=== PATIENT | female | born 1980 | race Native Hawaiian/Other Pacific Islander ===

== ENCOUNTER → 2022-06-04 11:09 | Outpatient (BNVA) | payer MEDICARE, MEDICAID, SELFPAY | PROVIDERS: PCP Internal Medicine; Visit Provider Nurse Practitioner Family | DX: G43.909 Migraine, unspecified, not intractable, without status migrainosus (principal); G24.3 Spasmodic torticollis; R29.2 Abnormal reflex; R25.2 Cramp and spasm | CPT/HCPCS: 99212 ==

== ENCOUNTER → 2023-01-07 08:45 | Outpatient (BNVA) | payer MEDICARE, MEDICAID, SELFPAY | PROVIDERS: PCP Internal Medicine; Visit Provider Psychiatry & Neurology Neurology | DX: G24.3 Spasmodic torticollis (principal) | CPT/HCPCS: 64616; 99211; J0585 ==

== ENCOUNTER 2023-04-20 09:34 | Outpatient (AMB) | payer MEDICARE, MEDICAID, SELFPAY ==
[2023-04-20 09:35] VITALS: BP 132/90; PULSE 73; O2SAT 98; BMI 35.1
--- NOTE | 2023-04-20 09:35 | A.OFFVIS_ITS ---
Intake Vital Signs 04/20/23 09:35 Height 4 ft 9.5 in Weight 165 lb BMI 35.1 BP 132/90 H Blood Pressure Location Lt brachial Position Sitting Pulse 73 Pulse Source Pulse Oximeter Pulse Oximetry (%) 98 Oxygen Delivery Method Room Air Intake Visit Reasons: Botox - Confirmed Intake Note: Pt presents for Botox. Accompanied by: Significant Other Allergies minocycline Allergy (Unknown, Verified 04/20/23 09:40) Itching sulfamethoxazole [From Bactrim] Allergy (Unknown, Verified 04/20/23 09:40) Itching timolol Allergy (Unknown, Verified 04/20/23 09:40) Itching trimethoprim [From Bactrim] Allergy (Unknown, Verified 04/20/23 09:40) Itching adalimumab [From Humira] Allergy (Verified 04/20/23 09:40) Itching infliximab [From Remicade] Allergy (Verified 04/20/23 09:40) Itching Medication List - Last Reconciled 04/20/23 by Zoya Guajardo MD cyclobenzaprine 10 mg PO erenumab-aooe (Aimovig Autoinjector) 140 mg subcut ONCE 30 days fluticasone propionate 50 mcg/actuation intranasal hydroxychloroquine mg PO hydroxyzine HCl 25 mg PO magnesium oxide 400 mg PO BEDTIME 30 days naproxen 500 mg PO olopatadine 0.2% 1 drp ophthalmic (eye) onabotulinumtoxinA (Botox) 200 units IM ONCE 12 weeks oxycodone 10 mg PO Q12H PRN riboflavin (vitamin B2) 400 mg PO QAM 30 days sumatriptan succinate 50 - 100 mg orally at onset of headache, may repeat in 2 hrs PRN; max 2 tabs per day or 4 tabs/week (may take with Ibuprofen) 30 days HPI HPI Comments History of Present Illness Details 42y/o female comes for treatment of her cervical dystonia ? Side effects including spread of toxin effect, dysphagia, breathing difficulties , bronchitis etc was discussed in detail and the patient agreed to the procedure.An informed consent was obtained ??? Botulinum toxin type A 200units X 1 -was diluted with 4 cc of normal saline at a concentration of 25 units in 0.5cc saline. Lot number [id number] expiration 10/2025 ??? Muscles injected ??? Eligio Splenius - 50 units each ??? Eligio levator 25 units each Eligio Trapezius 25 units each ? Total used 200 units PFSH Medical History Anemia Arthritis Cataract Congenital rubella Fibromyalgia GERD (gastroesophageal reflux disease) Glaucoma Legally blind Lupus Surgical History H/O breast biopsy History of ankle surgery History of back surgery History of surgery Hx of appendectomy Hx of cholecystectomy Hx of shoulder surgery Family History Father AIDS Legally blind Family/Other Kidney disease Heart disease Mother Diabetes Hypertension Thyroid disease Family/Other Lupus ADHD Bipolar 1 disorder Depression Anxiety Social History (Updated 04/20/23 @ 09:41 by Cheri Ruiz CMA) Household Members: Children Household Members Other:: 2 kids Alcohol intake: never Patient Tobacco Use Status: Never used Tobacco Physical Exam Vital Signs: Last Vital Signs Pulse 73 04/20/23 09:35 BP 132/90 H 04/20/23 09:35 Pulse Ox 98 04/20/23 09:35 Oxygen Delivery Method Room Air 04/20/23 09:35 BMI result Body Mass Index 35.1 Neck Other: dystonia, tightness tenderness in left SCM, splenius, levator, trapezius Mild tenderness in right splenius restricted range of motion Office Procedures Botulinum toxin Injection 05412 - Dystonia Procedure code (CPT) selection complete Office Meds onabotulinumtoxinA Performing Provider: Zoya Guajardo MD Administered by: Zoya Guajardo MD on 04/20/23 10:22 Dose Route Admin Location Lot Number Expiration Date NDC General Administrator 200 unit IM [id number] 10/21/25 5293-8570-37 ALLERGAN/BOTOX Comments: see HPI Assessment & Plan Assessment & Plan (1) Spasmodic torticollis: Code(s): G24.3 - Spasmodic torticollis Plan Patient tolerated the procedure well She will call with any side effects Orders: Orders AMB Botulinum toxin Injection - Patient Supplied Today G24.3 - Spasmodic torticollis Coding Level of Care Code Est Pt Level 1 (32131) Diagnoses Spasmodic torticollis G24.3 CPT Codes Botox Injection - Botox 4: 29246 - Dystonia ([id number])
== END 2023-04-20 10:20 | disposition home or self-care (01) ==
PROVIDERS: PCP Internal Medicine; Visit Provider Psychiatry & Neurology Neurology
DX: G24.3 Spasmodic torticollis (principal)
CPT/HCPCS: 64616

== ENCOUNTER → 2023-04-20 09:34 | Outpatient (BNVA) | payer MEDICARE, MEDICAID, SELFPAY | PROVIDERS: PCP Internal Medicine; Visit Provider Psychiatry & Neurology Neurology | DX: G24.3 Spasmodic torticollis (principal) | CPT/HCPCS: 64616; 99211; J0585 ==

== ENCOUNTER 2023-07-22 09:30 | Outpatient (AMB) | payer MEDICARE, MEDICAID, SELFPAY ==
--- NOTE | 2023-07-22 09:37 | MHC.OFFVIS ---
Intake Vital Signs 07/22/23 09:39 Height 4 ft 9.5 in Weight 168 lb 9 oz BMI 35.8 BP 122/86 Blood Pressure Location Lt brachial Position Sitting Respiration 16 Pulse 66 Pulse Source Pulse Oximeter Pulse Oximetry (%) 97 Oxygen Delivery Method Room Air Intake Visit Reasons: Botox /Confirmed Intake Note: Pt presents to office for Botox injections. Allergies minocycline Allergy (Unknown, Verified 07/22/23 09:38) Itching sulfamethoxazole [From Bactrim] Allergy (Unknown, Verified 07/22/23 09:38) Itching timolol Allergy (Unknown, Verified 07/22/23 09:38) Itching trimethoprim [From Bactrim] Allergy (Unknown, Verified 07/22/23 09:38) Itching adalimumab [From Humira] Allergy (Verified 07/22/23 09:38) Itching infliximab [From Remicade] Allergy (Verified 07/22/23 09:38) Itching Medication List - Last Reconciled 07/22/23 by Zoya Guajardo MD cyclobenzaprine 10 mg PO erenumab-aooe (Aimovig Autoinjector) 140 mg subcut ONCE 30 days fluticasone propionate 50 mcg/actuation intranasal hydroxychloroquine mg PO hydroxyzine HCl 25 mg PO magnesium oxide 400 mg PO BEDTIME 30 days naproxen 500 mg PO olopatadine 0.2% 1 drp ophthalmic (eye) onabotulinumtoxinA (Botox) 200 units IM ONCE 12 weeks oxycodone 10 mg PO Q12H PRN riboflavin (vitamin B2) 400 mg PO QAM 30 days sumatriptan succinate 50 - 100 mg orally at onset of headache, may repeat in 2 hrs PRN; max 2 tabs per day or 4 tabs/week (may take with Ibuprofen) 30 days HPI HPI Comments History of Present Illness Details 43y/o female comes for treatment of her cervical dystonia ? Side effects including spread of toxin effect, dysphagia, breathing difficulties , bronchitis etc was discussed in detail and the patient agreed to the procedure.An informed consent was obtained ??? Botulinum toxin type A 200units X 1 -was diluted with 4 cc of normal saline at a concentration of 25 units in 0.5cc saline. Lot number [id number] expiration 10/2025 ??? Muscles injected ??? Eligio Splenius - 50 units each ??? left levator 50 units each Left semispinalis 25 units each ? Total used 175units Discarded 25 units PFSH Medical History Cataract Glaucoma Anemia Arthritis Fibromyalgia Lupus GERD (gastroesophageal reflux disease) Legally blind Congenital rubella Surgical History Hx of cholecystectomy History of ankle surgery H/O breast biopsy Hx of shoulder surgery History of surgery History of back surgery Hx of appendectomy Family History Father AIDS Legally blind Family/Other Kidney disease Heart disease Mother Diabetes Hypertension Thyroid disease Family/Other Lupus ADHD Bipolar 1 disorder Depression Anxiety Social History Household Members: Children Household Members Other:: 2 kids Alcohol intake: never Patient Tobacco Use Status: Never used Tobacco Physical Exam Vital Signs: Last Vital Signs Pulse 66 07/22/23 09:39 Resp 16 07/22/23 09:39 BP 122/86 07/22/23 09:39 Pulse Ox 97 07/22/23 09:39 Oxygen Delivery Method Room Air 07/22/23 09:39 BMI result Body Mass Index 35.8 Neck Other: dystonia, tightness tenderness in left SCM, splenius, levator, trapezius Mild tenderness in right splenius restricted range of motion Office Procedures Botulinum toxin Injection 68181 - Dystonia Procedure code (CPT) selection complete Office Meds onabotulinumtoxinA 200 unit solution for injection Performing Provider: Zoya Guajardo MD Performing Location: [facility] [place] [facility] Administered by: Zoya Guajardo MD on 07/22/23 10:12 Dose Route Admin Location Dispensed Lot Number Expiration Date [facility] Associate Professor Of Pathology 175 unit IM 200 units [id number] 10/21/25 0578-9571-43 ALLERGAN/BOTOX Comments: see HPI Assessment & Plan Assessment & Plan (1) Spasmodic torticollis: Code(s): G24.3 - Spasmodic torticollis Plan Patient tolerated the procedure well She will call with any side effects Orders: Orders AMB Botulinum toxin Injection - Patient Supplied Today G24.3 - Spasmodic torticollis Coding Level of Care Code Est Pt Level 1 (53428) Diagnoses Spasmodic torticollis G24.3 CPT Codes Botox Injection - Botox 4: 56243 - Dystonia ([id number])
[2023-07-22 09:39] VITALS: BP 122/86; PULSE 66; RESP 16; O2SAT 97; BMI 35.8
== END 2023-07-22 10:06 | disposition home or self-care (01) ==
PROVIDERS: PCP Internal Medicine; Visit Provider Psychiatry & Neurology Neurology
DX: G24.3 Spasmodic torticollis (principal)
CPT/HCPCS: 64616

== ENCOUNTER → 2023-07-22 09:30 | Outpatient (BNVA) | payer MEDICARE, MEDICAID, SELFPAY | PROVIDERS: PCP Internal Medicine; Visit Provider Psychiatry & Neurology Neurology | DX: G24.3 Spasmodic torticollis (principal) | CPT/HCPCS: 64616; 99211; J0585 ==

== ENCOUNTER 2023-11-19 10:29 | Outpatient (AMB) | payer MEDICARE, MEDICAID, SELFPAY ==
--- NOTE | 2023-11-19 10:36 | A.OFFVIS_ITS ---
Intake Vital Signs 11/19/23 10:37 Height 4 ft 9.5 in Weight 168 lb BMI 35.7 BP 110/84 Blood Pressure Location Rt brachial Position Sitting Respiration 17 Pulse 72 Pulse Source Pulse Oximeter Pulse Oximetry (%) 99 Oxygen Delivery Method Room Air Intake Visit Reasons: Botox- Unable to lvm Intake Note: Pt presents to the office for Botox injections. Associate Professor Of Musicology Required: No Allergies minocycline Allergy (Unknown, Verified 07/22/23 09:38) Itching sulfamethoxazole [From Bactrim] Allergy (Unknown, Verified 07/22/23 09:38) Itching timolol Allergy (Unknown, Verified 07/22/23 09:38) Itching trimethoprim [From Bactrim] Allergy (Unknown, Verified 07/22/23 09:38) Itching adalimumab [From Humira] Allergy (Verified 07/22/23 09:38) Itching infliximab [From Remicade] Allergy (Verified 07/22/23 09:38) Itching Medication List - Last Reconciled 11/19/23 by Zoya Guajardo MD cyclobenzaprine 10 mg PO erenumab-aooe (Aimovig Autoinjector) 140 mg subcut ONCE 30 days fluticasone propionate 50 mcg/actuation intranasal hydroxychloroquine mg PO hydroxyzine HCl 25 mg PO magnesium oxide 400 mg PO BEDTIME 30 days naproxen 500 mg PO olopatadine 0.2% 1 drp ophthalmic (eye) onabotulinumtoxinA (Botox) 200 units IM ONCE 12 weeks oxycodone 10 mg PO Q12H PRN riboflavin (vitamin B2) 400 mg PO QAM 30 days sumatriptan succinate 50 - 100 mg orally at onset of headache, may repeat in 2 hrs PRN; max 2 tabs per day or 4 tabs/week (may take with Ibuprofen) 30 days HPI HPI Comments History of Present Illness Details 43y/o female comes for treatment of her cervical dystonia ? Side effects including spread of toxin effect, dysphagia, breathing difficulties , bronchitis etc was discussed in detail and the patient agreed to the procedure.An informed consent was obtained ??? Botulinum toxin type A 200units X 1 -was diluted with 4 cc of normal saline at a concentration of 25 units in 0.5cc saline. Lot number C [id number] expiration 02/2026 ??? Muscles injected ??? Eligio Splenius - 50 units each ??? left levator 50 units each Left semispinalis 25 units each ? Total used 175units Discarded 25 units PFSH Medical History Cataract Glaucoma Anemia Arthritis Fibromyalgia Lupus GERD (gastroesophageal reflux disease) Legally blind Congenital rubella Surgical History History of partial hysterectomy Hx of cholecystectomy History of ankle surgery H/O breast biopsy Hx of shoulder surgery History of surgery History of back surgery Hx of appendectomy Family History Father AIDS Legally blind Family/Other Kidney disease Heart disease Mother Diabetes Hypertension Thyroid disease Family/Other Lupus ADHD Bipolar 1 disorder Depression Anxiety Social History Household Members: Children Household Members Other:: 2 kids Alcohol intake: never Patient Tobacco Use Status: Never used Tobacco Physical Exam Vital Signs: Last Vital Signs Pulse 72 11/19/23 10:37 Resp 17 11/19/23 10:37 BP 110/84 11/19/23 10:37 Pulse Ox 99 11/19/23 10:37 Oxygen Delivery Method Room Air 11/19/23 10:37 BMI result Body Mass Index 35.7 Neck Other: dystonia, tightness tenderness in left SCM, splenius, levator, trapezius Mild tenderness in right splenius restricted range of motion Office Procedures Botulinum toxin Injection 54691 - Dystonia Procedure code (CPT) selection complete Office Meds onabotulinumtoxinA 200 unit solution for injection Performing Provider: Zoya Guajardo MD Performing Location: [facility] [place] [facility] Administered by: Zoya Guajardo MD on 11/19/23 10:59 Dose Route Admin Location Dispensed Lot Number Expiration Date [facility] 3D Designer 175 unit IM 200 units [id number] 02/18/26 [id number] ALLERGAN/BOTOX Comments: see HPI Assessment & Plan Assessment & Plan (1) Spasmodic torticollis: Code(s): G24.3 - Spasmodic torticollis Plan Patient tolerated the procedure well She will call with any side effects Orders: Orders AMB Botulinum toxin Injection Today G24.3 - Spasmodic torticollis Coding Level of Care Code Est Pt Level 1 (93153) Diagnoses Spasmodic torticollis G24.3 CPT Codes Botox Injection - Botox 4: 21872 - Dystonia ([id number])
[2023-11-19 10:37] VITALS: BP 110/84; PULSE 72; RESP 17; O2SAT 99; BMI 35.7
== END 2023-11-19 10:57 | disposition home or self-care (01) ==
PROVIDERS: PCP Internal Medicine; Visit Provider Psychiatry & Neurology Neurology
DX: G24.3 Spasmodic torticollis (principal)
CPT/HCPCS: 64616

== ENCOUNTER → 2023-11-19 10:29 | Outpatient (BNVA) | payer MEDICARE, MEDICAID, SELFPAY | PROVIDERS: PCP Internal Medicine; Visit Provider Psychiatry & Neurology Neurology | DX: G24.3 Spasmodic torticollis (principal) | CPT/HCPCS: 64616; 99211; J0585 ==

== ENCOUNTER 2024-03-01 08:58 | Outpatient (AMB) | payer MEDICARE, MEDICAID, SELFPAY ==
--- NOTE | 2024-03-01 09:05 | A.OFFVIS_ITS ---
Vital Signs 03/01/24 09:06 Height 4 ft 9.5 in Weight 169 lb 4 oz BMI 36.0 BP 132/82 Blood Pressure Location Rt brachial Position Sitting Respiration 16 Pulse 71 Pulse Source Pulse Oximeter Pulse Oximetry (%) 99 Oxygen Delivery Method Room Air Intake Visit Reasons: Botox - Confirmed Intake Note: Pt presents to the office for Botox injections. Cargo Bracer Required: No Allergies minocycline Allergy (Unknown, Verified 03/01/24 09:06) Itching sulfamethoxazole [From Bactrim] Allergy (Unknown, Verified 03/01/24 09:06) Itching timolol Allergy (Unknown, Verified 03/01/24 09:06) Itching trimethoprim [From Bactrim] Allergy (Unknown, Verified 03/01/24 09:06) Itching adalimumab [From Humira] Allergy (Verified 03/01/24 09:06) Itching infliximab [From Remicade] Allergy (Verified 03/01/24 09:06) Itching Medication List - Last Reconciled 03/01/24 by Zoya Guajardo MD cyclobenzaprine 10 mg PO erenumab-aooe (Aimovig Autoinjector) 140 mg subcut ONCE 30 days fluticasone propionate 50 mcg/actuation intranasal hydroxychloroquine mg PO hydroxyzine HCl 25 mg PO magnesium oxide 400 mg PO BEDTIME 30 days naproxen 500 mg PO olopatadine 0.2% 1 drp ophthalmic (eye) onabotulinumtoxinA (Botox) 200 units IM ONCE 12 weeks oxycodone 10 mg PO Q12H PRN riboflavin (vitamin B2) 400 mg PO QAM 30 days sumatriptan succinate 100 mg PO ONCE sumatriptan succinate 50 - 100 mg orally at onset of headache, may repeat in 2 hrs PRN; max 2 tabs per day or 4 tabs/week (may take with Ibuprofen) 30 days HPI Comments Details: 43y/o female comes for treatment of her cervical dystonia ? Side effects including spread of toxin effect, dysphagia, breathing difficulties , bronchitis etc was discussed in detail and the patient agreed to the procedure.An informed consent was obtained ??? Botulinum toxin type A 200units X 1 -was diluted with 4 cc of normal saline at a concentration of 25 units in 0.5cc saline. Lot number C [id number] expiration 02/2026 ??? Muscles injected ??? Eligio Splenius - 50 units each ??? left levator 50 units each Left semispinalis 25 units each left temporalis 25 units ? Total [facility] 200[facility] Medical History Cataract Glaucoma Anemia Arthritis Fibromyalgia Lupus GERD (gastroesophageal reflux disease) Legally blind Congenital rubella Surgical History History of partial hysterectomy Hx of cholecystectomy History of ankle surgery H/O breast biopsy Hx of shoulder surgery History of surgery History of back surgery Hx of appendectomy Family History Father AIDS Legally blind Family/Other Kidney disease Heart disease Mother Diabetes Hypertension Thyroid disease Family/Other Lupus ADHD Bipolar 1 disorder Depression Anxiety Social History Household Members: Children Household Members Other:: 2 kids Alcohol intake: never Patient Tobacco Use Status: Never used Tobacco Physical Exam Vital Signs: Last Vital Signs Pulse 71 03/01/24 09:06 Resp 16 03/01/24 09:06 BP 132/82 03/01/24 09:06 Pulse Ox 99 03/01/24 09:06 Oxygen Delivery Method Room Air 03/01/24 09:06 BMI result Body Mass Index 36.0 Neck Other: dystonia, tightness tenderness in left SCM, splenius, levator, trapezius Mild tenderness in right splenius restricted range of motion Office Procedures Botulinum toxin Injection 03833 - Dystonia Procedure code (CPT) selection complete Office Meds onabotulinumtoxinA 200 unit solution for injection Performing Provider: Zoya Guajardo MD Performing Location[place] [facility] [place] [facility] Administered by: Zoya Guajardo MD on 03/01/24 09:37 Dose Route Admin Location Dispensed Lot Number Expiration Date [facility] Sheet Pile Driver Operator 200 unit IM 200 units [id number] 02/18/26 [id number] ALLERGAN/BOTOX Comments: see HPI Assessment & Plan Assessment & Plan (1) Spasmodic torticollis: Code(s): G24.3 - Spasmodic torticollis Category: Medical Plan Patient tolerated the procedure well She will call with any side effects Orders: Orders 2 AMB Botulinum toxin Injection Today G24.3 - Spasmodic torticollis Medications: New onabotulinumtoxinA 200 units IM ONCE 1 ea 0RF spasmodic torticollis G24.3 - Spasmodic torticollis Coding Level of Care Code Est Pt Level 1 (79944) Diagnoses Spasmodic torticollis G24.3 CPT Codes Botox Injection - Botox 4: 80904 - Dystonia ([id number])
[2024-03-01 09:06] VITALS: BP 132/82; PULSE 71; RESP 16; O2SAT 99; BMI 36.0
== END 2024-03-01 09:23 | disposition home or self-care (01) ==
PROVIDERS: PCP Internal Medicine; Visit Provider Psychiatry & Neurology Neurology
DX: G24.3 Spasmodic torticollis (principal)
CPT/HCPCS: 64616

== ENCOUNTER → 2024-03-01 08:58 | Outpatient (BNVA) | payer MEDICARE, MEDICAID, SELFPAY | PROVIDERS: PCP Internal Medicine; Visit Provider Psychiatry & Neurology Neurology | DX: G24.3 Spasmodic torticollis (principal) | CPT/HCPCS: 64616; 99211; J0585 ==

== ENCOUNTER 2024-06-13 09:19 | Outpatient (AMB) | payer MEDICARE, MEDICAID, SELFPAY ==
--- NOTE | 2024-06-13 09:22 | MHC.OFFVIS ---
Vital Signs 06/13/24 09:23 Height 4 ft 9.5 in Weight 173 lb 2 oz BMI 36.8 BP 138/82 Blood Pressure Location Rt brachial Position Sitting Respiration 16 Pulse 77 Pulse Source Pulse Oximeter Pulse Oximetry (%) 98 Oxygen Delivery Method Room Air Intake Visit Reasons: Botox Intake Note: Pt presents to the office for Botox injections for spasmodic torticollis. Stringed Instrument Tuner Required: No Allergies minocycline Allergy (Unknown, Verified 06/13/24 09:22) Itching sulfamethoxazole [From Bactrim] Allergy (Unknown, Verified 06/13/24 09:22) Itching timolol Allergy (Unknown, Verified 06/13/24 09:22) Itching trimethoprim [From Bactrim] Allergy (Unknown, Verified 06/13/24 09:22) Itching adalimumab [From Humira] Allergy (Verified 06/13/24 09:22) Itching infliximab [From Remicade] Allergy (Verified 06/13/24 09:22) Itching Medication List - Last Reconciled 06/13/24 by Zoya Guajardo MD cyclobenzaprine 10 mg PO erenumab-aooe (Aimovig Autoinjector) 140 mg subcut ONCE 30 days fluticasone propionate 50 mcg/actuation intranasal hydroxychloroquine mg PO hydroxyzine HCl 25 mg PO magnesium oxide 400 mg PO BEDTIME 30 days naproxen 500 mg PO olopatadine 0.2% 1 drp ophthalmic (eye) onabotulinumtoxinA (Botox) 200 units IM ONCE 12 weeks oxycodone 10 mg PO Q12H PRN riboflavin (vitamin B2) 400 mg PO QAM 30 days sumatriptan succinate 100 mg PO ONCE sumatriptan succinate 50 - 100 mg orally at onset of headache, may repeat in 2 hrs PRN; max 2 tabs per day or 4 tabs/week (may take with Ibuprofen) 30 days HPI Comments Details: 43y/o female comes for treatment of her cervical dystonia ? Side effects including spread of toxin effect, dysphagia, breathing difficulties , bronchitis etc was discussed in detail and the patient agreed to the procedure.An informed consent was obtained ??? Botulinum toxin type A 200units X 1 -was diluted with 4 cc of normal saline at a concentration of 25 units in 0.5cc saline. Lot number [id number] expiration 08/2026 ??? Muscles injected ??? Eligio Splenius - 50 units each ??? left levator 50 units each Left semispinalis 25 units each left temporalis 25 units ? Total used 200units [facility] Medical History Cataract Glaucoma Anemia Arthritis Fibromyalgia Lupus GERD (gastroesophageal reflux disease) Legally blind Congenital rubella Surgical History History of partial hysterectomy Hx of cholecystectomy History of ankle surgery H/O breast biopsy Hx of shoulder surgery History of surgery History of back surgery Hx of appendectomy Family History Father AIDS Legally blind Family/Other Kidney disease Heart disease Mother Diabetes Hypertension Thyroid disease Family/Other Lupus ADHD Bipolar 1 disorder Depression Anxiety Social History Household Members: Children Household Members Other:: 2 kids Alcohol intake: never Patient Tobacco Use Status: Never used Tobacco Physical Exam Vital Signs: Last Vital Signs Pulse 77 06/13/24 09:23 Resp 16 06/13/24 09:23 BP 138/82 06/13/24 09:23 Pulse Ox 98 06/13/24 09:23 Oxygen Delivery Method Room Air 06/13/24 09:23 BMI result Body Mass Index 36.8 Neck Other: dystonia, tightness tenderness in left SCM, splenius, levator, trapezius Mild tenderness in right splenius restricted range of motion Office Procedures Botulinum toxin Injection 54877 - Dystonia Procedure code (CPT) selection complete Office Meds onabotulinumtoxinA 200 unit solution for injection Performing Provider: Zoya Guajardo MD Performing Location: [facility] [place] [facility] Administered by: Zoya Guajardo MD on 06/13/24 10:02 Dose Route Admin Location Dispensed Lot Number Expiration Date [facility] Search Manager 200 unit IM 200 units [id number] 08/20/26 7771-3009-57 ALLERGAN/BOTOX Comments: see hpi Assessment & Plan Assessment & Plan (1) Spasmodic torticollis: Code(s): G24.3 - Spasmodic torticollis Category: Medical Plan Patient tolerated the procedure well She will call with any side effects Orders: Orders AMB Botulinum toxin Injection Today G24.3 - Spasmodic torticollis Medications: New onabotulinumtoxinA 200 units IM ONCE 1 ea 0RF dystonia G24.3 - Spasmodic torticollis Coding Level of Care Code Est Pt Level 1 (99446) Diagnoses Spasmodic torticollis G24.3 CPT Codes Botox Injection - Botox 4: 62635 - Dystonia ([id number])
[2024-06-13 09:23] VITALS: BP 138/82; PULSE 77; RESP 16; O2SAT 98; BMI 36.8
== END 2024-06-13 09:59 | disposition home or self-care (01) ==
PROVIDERS: PCP Internal Medicine; Visit Provider Psychiatry & Neurology Neurology
DX: G24.3 Spasmodic torticollis (principal)
CPT/HCPCS: 64616

== ENCOUNTER → 2024-06-13 09:19 | Outpatient (BNVA) | payer MEDICARE, MEDICAID, SELFPAY | PROVIDERS: PCP Internal Medicine; Visit Provider Psychiatry & Neurology Neurology | DX: G24.3 Spasmodic torticollis (principal) | CPT/HCPCS: 64616; 99211; J0585 ==

== ENCOUNTER 2024-09-26 14:12 | Outpatient (AMB) | payer MEDICARE, MEDICAID, SELFPAY ==
[2024-09-26 14:17] VITALS: BP 130/90; PULSE 86; O2SAT 98; BMI 35.7
--- NOTE | 2024-09-26 14:17 | MHC.OFFVIS ---
Vital Signs 09/26/24 14:17 Height 4 ft 9.5 in Weight 168 lb BMI 35.7 BP 130/90 H Blood Pressure Location Rt brachial Position Sitting Pulse 86 Pulse Source Pulse Oximeter Pulse Oximetry (%) 98 Oxygen Delivery Method Room Air Intake Visit Reasons: Botox Intake Note: Patient had cortisone shot on her back and hip. Business Transformation Manager Required: No Accompanied by: Self / Same As Patient Allergies minocycline Allergy (Unknown, Verified 09/26/24 14:21) Itching sulfamethoxazole [From Bactrim] Allergy (Unknown, Verified 09/26/24 14:21) Itching timolol Allergy (Unknown, Verified 09/26/24 14:21) Itching trimethoprim [From Bactrim] Allergy (Unknown, Verified 09/26/24 14:21) Itching adalimumab [From Humira] Allergy (Verified 09/26/24 14:21) Itching infliximab [From Remicade] Allergy (Verified 09/26/24 14:21) Itching Medication List - Last Reconciled 09/26/24 by Zoya Guajardo MD cyclobenzaprine 10 mg PO erenumab-aooe (Aimovig Autoinjector) 140 mg subcut ONCE 30 days fluticasone propionate 50 mcg/actuation intranasal hydroxychloroquine mg PO hydroxyzine HCl 25 mg PO magnesium oxide 400 mg PO BEDTIME 30 days naproxen 500 mg PO olopatadine 0.2% 1 drp ophthalmic (eye) onabotulinumtoxinA (Botox) 200 units IM ONCE 12 weeks oxycodone 10 mg PO Q12H PRN riboflavin (vitamin B2) 400 mg PO QAM 30 days sumatriptan succinate 100 mg PO ONCE sumatriptan succinate 50 - 100 mg orally at onset of headache, may repeat in 2 hrs PRN; max 2 tabs per day or 4 tabs/week (may take with Ibuprofen) 30 days Do you need a note to return to daycare/school/sports/work: No HPI Comments Details: 44y/o female comes for treatment of her cervical dystonia ? Side effects including spread of toxin effect, dysphagia, breathing difficulties , bronchitis etc was discussed in detail and the patient agreed to the procedure.An informed consent was obtained ??? Botulinum toxin type A 200units X 1 -was diluted with 4 cc of normal saline at a concentration of 25 units in 0.5cc saline. Lot number [id number] expiration 05/2026 ??? Muscles injected ??? Eligio Splenius - 50 units each ??? left levator 50 units each Left semispinalis 25 units each left temporalis 25 units ? Total used 200units [facility] Medical History Cataract Glaucoma Anemia Arthritis Fibromyalgia Lupus GERD (gastroesophageal reflux disease) Legally blind Congenital rubella Surgical History History of partial hysterectomy Hx of cholecystectomy History of ankle surgery H/O breast biopsy Hx of shoulder surgery History of surgery History of back surgery Hx of appendectomy Family History Father AIDS Legally blind Family/Other Kidney disease Heart disease Mother Diabetes Hypertension Thyroid disease Family/Other Lupus ADHD Bipolar 1 disorder Depression Anxiety Social History Household Members: Children Household Members Other:: 2 kids Alcohol intake: never Patient Tobacco Use Status: Never used Tobacco Physical Exam Vital Signs: Last Vital Signs Pulse 86 09/26/24 14:17 BP 130/90 H 09/26/24 14:17 Pulse Ox 98 09/26/24 14:17 Oxygen Delivery Method Room Air 09/26/24 14:17 BMI result Body Mass Index 35.7 Neck Other: dystonia, tightness tenderness in left SCM, splenius, levator, trapezius Mild tenderness in right splenius restricted range of motion Office Procedures Botulinum toxin Injection 01236 - Dystonia Procedure code (CPT) selection complete Office Meds onabotulinumtoxinA 200 unit solution for injection Performing Provider: Zoya Guajardo MD Performing Location: [facility] Administered by: Zoya Guajardo MD on 09/26/24 14:39 Dose Route Admin Location Dispensed Lot Number Expiration Date [facility] Drier Feeder 200 unit IM 200 units [id number] ALLERGAN/BOTOX Comments: see hpi Assessment & Plan Assessment & Plan (1) Spasmodic torticollis: Code(s): G24.3 - Spasmodic torticollis Category: Medical Plan Patient tolerated the procedure well She will call with any side effects Orders: Orders AMB Botulinum toxin Injection Today G24.3 - Spasmodic torticollis Medications: New onabotulinumtoxinA 200 units IM ONCE 1 ea 0RF torticollis G24.3 - Spasmodic torticollis Coding Level of Care Code Est Pt Level 1 (67833) Diagnoses Spasmodic torticollis G24.3 CPT Codes Botox Injection - Botox 4: 06111 - Dystonia ([id number])
== END 2024-09-26 14:37 | disposition home or self-care (01) ==
PROVIDERS: PCP Internal Medicine; Visit Provider Psychiatry & Neurology Neurology
DX: G24.3 Spasmodic torticollis (principal)
CPT/HCPCS: 64616

== ENCOUNTER → 2024-09-26 14:12 | Outpatient (BNVA) | payer MEDICARE, MEDICAID, SELFPAY | PROVIDERS: PCP Internal Medicine; Visit Provider Psychiatry & Neurology Neurology | DX: G24.3 Spasmodic torticollis (principal) | CPT/HCPCS: 64616; 99211; J0585 ==

== ENCOUNTER 2025-01-01 10:32 | Outpatient (AMB) | payer MEDICARE, MEDICAID, SELFPAY ==
--- NOTE | 2025-01-01 10:34 | MHC.OFFVIS ---
Vital Signs 01/01/25 10:35 Height 4 ft 9.5 in Weight 170 lb BMI 36.1 Pulse 87 Pulse Source Pulse Oximeter Pulse Oximetry (%) 98 Oxygen Delivery Method Room Air Intake Visit Reasons: botox injection Intake Note: per Dr. Guajardo patient was added to schedule for botox injection Allergies minocycline Allergy (Unknown, Verified 01/01/25 10:37) Itching sulfamethoxazole [From Bactrim] Allergy (Unknown, Verified 01/01/25 10:37) Itching timolol Allergy (Unknown, Verified 01/01/25 10:37) Itching trimethoprim [From Bactrim] Allergy (Unknown, Verified 01/01/25 10:37) Itching adalimumab [From Humira] Allergy (Verified 01/01/25 10:37) Itching infliximab [From Remicade] Allergy (Verified 01/01/25 10:37) Itching Medication List - Last Reconciled 01/01/25 by Zoya Guajardo MD cyclobenzaprine 10 mg PO cyclobenzaprine 5 mg PO BEDTIME fluticasone propionate 50 mcg/actuation intranasal hydroxychloroquine mg PO hydroxyzine HCl 25 mg PO magnesium oxide 400 mg PO BEDTIME 30 days naproxen 500 mg PO olopatadine 0.2% 1 drp ophthalmic (eye) onabotulinumtoxinA (Botox) 200 units IM ONCE 12 weeks ondansetron 4 - 8 mg (1 - 2 x 4 mg) PO Q4H PRN 30 days oxycodone 10 mg PO Q12H PRN riboflavin (vitamin B2) 400 mg PO QAM 30 days sumatriptan succinate 50 - 100 mg orally at onset of headache, may repeat in 2 hrs PRN; max 2 tabs per day or 4 tabs/week (may take with Ibuprofen) 30 days sumatriptan succinate 100 mg PO ONCE HPI Comments Details: 44y/o female comes for treatment of her cervical dystonia ? Side effects including spread of toxin effect, dysphagia, breathing difficulties , bronchitis etc was discussed in detail and the patient agreed to the procedure.An informed consent was obtained ??? Botulinum toxin type A 200units X 1 -was diluted with 4 cc of normal saline at a concentration of 25 units in 0.5cc saline. Lot number [id number] expiration 12/2026 ??? Muscles injected ??? Eligio Splenius - 50 units each ??? left levator 50 units each Left semispinalis 25 units each left temporalis 25 units ? Total used 200units PFSH Medical History Cataract Glaucoma Anemia Arthritis Fibromyalgia Lupus GERD (gastroesophageal reflux disease) Legally blind Congenital rubella Surgical History History of partial hysterectomy Hx of cholecystectomy History of ankle surgery H/O breast biopsy Hx of shoulder surgery History of surgery History of back surgery Hx of appendectomy Family History Father AIDS Legally blind Family/Other Kidney disease Heart disease Mother Diabetes Hypertension Thyroid disease Family/Other Lupus ADHD Bipolar 1 disorder Depression Anxiety Social History Household Members: Children Household Members Other:: 2 kids Alcohol intake: never Patient Tobacco Use Status: Never used Tobacco Physical Exam Vital Signs: Last Vital Signs Pulse 87 01/01/25 10:35 Pulse Ox 98 01/01/25 10:35 Oxygen Delivery Method Room Air 01/01/25 10:35 BMI result Body Mass Index 36.1 Neck Other: dystonia, tightness tenderness in left SCM, splenius, levator, trapezius Mild tenderness in right splenius restricted range of motion Office Procedures Botulinum toxin Injection 05569 - Dystonia Procedure code (CPT) selection complete Office Meds onabotulinumtoxinA 200 unit solution for injection Performing Provider: Zoya Guajardo MD Performing Location: [facility] Administered by: Zoya Guajardo MD on 01/01/25 11:06 Dose Route Admin Location Dispensed Lot Number Expiration Date [facility] Environmental Laboratory Technician 200 unit IM 200 units [id number] ALLERGAN/BOTOX Comments: see HPI Assessment & Plan Assessment & Plan (1) Spasmodic torticollis: Code(s): G24.3 - Spasmodic torticollis Category: Medical Plan Patient tolerated the procedure well She will call with any side effects Orders: Orders AMB Botulinum toxin Injection Today G24.3 - Spasmodic torticollis Medications: New cyclobenzaprine 5 mg PO BEDTIME 30 tabs 1RF onabotulinumtoxinA 200 units IM ONCE 1 ea 0RF dystonia G24.3 - Spasmodic torticollis Coding Level of Care Code Est Pt Level 1 (30698) Diagnoses Spasmodic torticollis G24.3 CPT Codes Botox Injection - Botox 4: 16861 - Dystonia ([id number])
[2025-01-01 10:35] VITALS: PULSE 87; O2SAT 98; BMI 36.1
--- OUTSIDE RECORDS SUMMARY | 2025-01-01 12:08 | XMS_ITS | Clinical Summary ---
Author Organization [employer] [facility] Address [address] [place] [address] Care Team Providers Care Motocross Racer Name Role Phone Nam Sheriff MD Primary Care Provider [phone] Allergies Active Allergy Reactions Criticality Noted Date Comments Sulfamethoxazole-Trimethoprim 2019 Duloxetine Hcl 09/10/2020 Adalimumab 09/10/2020 Minocycline 09/10/2020 Infliximab 09/10/2020 Timolol 09/10/2020 Trimethoprim 09/10/2020 Medications Medication Sig Dispensed Refills Start Date End Date Status OXYCODONE HCL PO Take 10 mg by mouth 3 (three) times a day. 0 Active sertraline (ZOLOFT) 50 MG tablet Take 50 mg by mouth daily. 0 Active acetaminophen (TYLENOL EXTRA STRENGTH) 500 MG tablet Take 500 mg by mouth every 6 (six) hours as needed. 0 Active cyclobenzaprine (FLEXERIL) 10 MG tablet Take 10 mg by mouth every night at bedtime. 0 Active ibuprofen (ADVIL,MOTRIN) 600 MG tablet Take 600 mg by mouth every 8 (eight) hours as needed for pain. 0 Active fluticasone (FLONASE) 50 MCG/ACT nasal spray spray/apply 2 sprays in each nostril daily. 0 Active Ergocalciferol (VITAMIN D2) 50 MCG (2000 UT) TABS Take 2,000 Units by mouth daily. 0 Active hydrOXYzine (ATARAX) 25 MG tablet Take 25 mg by mouth 3 (three) times a day as needed for itching. 0 Active acetaminophen (TYLENOL) 325 MG tablet Take 650 mg by mouth every 6 (six) hours as needed for pain. 0 Active tafluprost, PF, (ZIOPTAN) 0.0015 % SOLN 1 drop every evening. 0 Active brinzolamide (AZOPT) 1 % ophthalmic suspension Place 1 drop into the left eye 3 (three) times a day. 0 Active OLOPATADINE HCL OP Apply 1 drop to eye daily. 0 Active Polyethyl Glycol-Propyl Glycol 0.4-0.3 % SOLN Apply 1 drop to eye daily. 0 Active brimonidine (ALPHAGAN) 0.2 % ophthalmic solution Place 1 drop into the left eye 3 (three) times a day. 0 Active omeprazole (PriLOSEC) 20 MG capsule Take 20 mg by mouth daily. 0 Active hydroxychloroquine (PLAQUENIL) 200 MG tablet Take 200 mg by mouth 2 (two) times a day. 0 Active naproxen (NAPROSYN) 500 MG tablet Take 500 mg by mouth 2 (two) times a day with meals. 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 02/29/2020 GERD (gastroesophageal reflux disease) 8 IBS (irritable bowel syndrome) 11/25/2017 Uveitis 03/27/2015 Overview: Overview: Uveitis Glaucoma 03/06/2015 Insomnia 03/06/2015 Legally blind 03/06/2015 Leukopenia 03/06/2015 Overview: Overview: Leukopenia Polyarthralgia 03/06/2015 Systemic lupus erythematosus 03/06/2015 Overview: Overview: Systemic lupus erythematosus Social History Tobacco Use Types Packs/Day Years Used Date Smoking Tobacco: Never Smokeless Tobacco: Never Alcohol Use Standard Drinks/Week Comments Yes 0 (1 standard drink = 0.6 oz pur e alcohol) social Sex and Gender Information Value Date Recorded Sex Assigned at Not on file Gender Identity Not on file Sexual Orientation Not on file Job Start Date Occupation Industry Not on file Not on file Not on file Last Filed Vital Signs Vital Sign Reading Time Taken Comments Blood Pressure 131/70 09/11/2020 10:50 AM EST Pulse 83 09/11/2020 10:50 AM EST Temperature 36.6 ??C (97.8 ??F) 09/11/2020 10:[address] Respiratory Rate - - Oxygen Saturation - - Inhaled Oxygen Concentration - - Weight 72.6 kg (160 lb) 09/11/2020 10:50 AM EST Height 147.3 cm (4' 10 ) 09/11/2020 10:50 AM EST Body Mass Index 33.44 09/11/2020 10:50 AM EST Plan of Treatment Health Maintenance Due Date Last Done Comments Hepatitis B Vaccines (1 of 3 - 3-dose series) 1981 Hepatitis C Screening 1981 COVID-19 Vaccine (#1) 01/06/1982 Depression Screening 1993 Preventative Health Evaluation 1999 Cervical Cancer Screening (Pap Smear) 2002 Influenza Vaccine (#1) 2024 0, 10/13/2018, 08/10/2017, Additional history exists DTap / Tdap / Td (2 - Td or Tdap) 02/05/2027 02/05/2017 Pneumococcal Vaccine Aged Out No long er eligible based on patient's age to complete this topic RSV Ped < 20 months Aged Out No longe r eligible based on patient's age to complete this topic Care Teams Motocross Racer Relationship Specialty Start Date End Date Nam Sheriff MD PCP - General Internal Medicine 08/29/20
--- OUTSIDE RECORDS SUMMARY | 2025-01-01 12:08 | XMS_ITS | Encounter Summary ---
Author Organization [employer] Address [address] [place] [address] Care Team Providers Care Cell Support Operator Name Role Phone Odalys Sheriff MD Primary Care Provider [phone] Reason for Visit * Reason Onset Date Comments prior auth 11/21/2024 Prior auth Encounter Details Date Type Department Care Team (Late st Contact Info) Description 11/21/2024 Telephone Bariatric Surgery - [place] 175 [facility] [address] [place] [phone] Ainsley Andrade PA [address] [facility] [address] [place] [address] prior auth (Prior auth) Social History Tobacco Use Types Packs/Day Years Used Date Smoking Tobacco: Never Smokeless Tobacco: Never Alcohol Use Standard Drinks/Week Comments Yes 0 (1 standard drink = 0.6 oz pur e alcohol) Comments Unknown Sex and Gender Information Value Date Recorded Sex Assigned at Not on file Legal Sex Female 4:32 PM EST Gender Identity Not on file Sexual Orientation Not on file documented as of this encounter Progress Notes * Kristen Jacobo - 12/28/2024 2:37 PM EDT Patient calling back after speaking with Medicare as instructed by staff. Medicare states the prior auth needs to go to [employer] phone# [phone] * Lala Cr MA - 12/14/2024 9:36 AM EDT [facility] - last name spelled Esqilin - Medicare has the patient name spelled wrong and the patient has called them to fix it multiple times. I was able to verify pharmacy benefits with the incorrect spelling of patients last name. * Neha Connor - 12/13/2024 3:29 PM EDT PA has to Medicare. Pharmacy stated the medicaid will not cover * Dinesh Mariano MA - 12/06/2024 1:13 PM EDT Patient was approved for zepbound 2.5 mg 11/16/2024 to 05/16/2025 * Kristen Jacobo - 12/06/2024 12:26 PM EDT Patient requesting update on her prior auth. * Kristen Jacobo - 11/28/2024 1:13 PM EDT Annette called with pharmacy info: Chaya ID: [id number] Please send PA to above to start process. It may not be covered but they need to go through the process for the appeal. * Kristen Jacobo - 11/27/2024 1:53 PM EDT Patient states that Ty from [facility] told her that her Medicare is her primary? She's asking to send the PA through to them and if the office had questions they can contact Ty at [phone] * Lala Cr MA - 11/22/2024 11:49 AM EST Pharmacy stated that the patient has CCA - I tried to run her eligibility for CCA and she does not have an active plan. We ran for Medicare A&B it states that there is a content error and she is not eligible for Medicare either. I'm not sure where to send this PA to as her Medicare will not bean picker as a secondary payer withoutsending to her primary insurance first and we can't find any primary insurance plan that she is eligible for. * Neha Connor - 11/21/2024 3:03 PM EST Patient needs a PA documented in this encounter Plan of Treatment Upcoming Encounters Date Type Department Care Team (Late st Contact Info) Description 02/08/2025 10:15 AM EDT Office Visit Bariatric Surgery - [place] [address] [phone] Ainsley Andrade PA [address] [address] 02/22/2025 9:45 AM EDT Office Visit Internal Medicine - [address] [phone] Odalys Sheriff MD [address] [place] [phone] documented as of this encounter Visit Diagnoses Not on filedocumented in this encounter Care Teams Cell Support Operator Relationship Specialty Start Date End Date Odalys Sheriff MD [address] [place] [phone] PCP - General Internal Medicine 08/07/24 documented as of this encounter
--- OUTSIDE RECORDS SUMMARY | 2025-01-01 12:08 | XMS_ITS | Clinical Summary ---
Author Organization 175 [facility] Address [address] [place] [address] Phone Care Team Providers Care Personalized Living Manager Name Role Phone Nam Sheriff MD Primary Care Provider [phone] Allergies Active Allergy Reactions Criticality Noted Date Comments Adalimumab 03/06/2015 Hives,sob Duloxetine Hcl Palpitations 07/04/2019 tachycardia Infliximab 03/06/2015 Hives,sob Minocycline Palpitations 07/04/2019 tachycardia Sulfamethoxazole-Trimethoprim Hives 2014 With tachycardia Timolol Palpitations 11/15/2019 Trimethoprim 09/10/2020 Medications brimonidine (ALPHAGAN) 0.2 % ophthalmic solution apply 1 Drop to the eye 3 times daily. Left eye Active cetirizine (ZyrTEC) 10 mg tablet Take 1 Tablet by mouth daily for 360 days. 4 02/13/20 25 Active cyclobenzaprine (FLEXERIL) 10 mg tablet Take 1 Tab by mouth at bedtime. 0 Active docusate sodium (COLACE) 100 mg capsule Take 1 Capsule by mouth 2 times daily. Active famotidine (PEPCID) 20 mg tablet Take 1 Tablet by mouth 2 times daily as needed for Heartburn. 4 Active fluticasone propionate (FLONASE) 50 mcg/actuation nasal spray SPRAY TWICE INTO EACH NOSTRIL ONCE DAILY 4 Active hydroxychloroqu ine (PLAQUENIL) 200 mg tablet Take 200 mg by mouth 2 times daily. Active loperamide (IMODIUM) 2 mg capsule Take 1 Capsule by mouth 4 times daily as needed for Diarrhea. 4 Active naproxen (NAPROSYN) 500 mg tablet Take 500 mg by mouth 2 (two) times a day with meals. Active olopatadine (PATADAY) 0.2 % ophthalmic solution apply 1 Drop to the eye daily. Both eyes Active pantoprazole (PROTONIX) 40 mg EC tablet Take 1 Tablet by mouth daily. Take in am on empty stomach, wait 30 mins and then eat to activate the medication 4 Active tafluprost, PF, 0.0015 % dropperette apply 1 Drop to the eye at bedtime. Left eye Active Vitamin D3 50 mcg (2,000 unit) tablet TAKE 1 TABLET BY MOUTH ONCE DAILY 90 tablet 1 4 Active triamcinolone (KENALOG) 0.025 % cream Apply to affected areas twice daily 15 g 5 5 Active sertraline (ZOLOFT) 25 mg tablet Take 1 tablet nightly In addition to 50mg tablet every AM. 30 tablet 2 5 Active hydrOXYzine HCL (ATARAX) 25 mg tablet TAKE 1 TABLET BY MOUTH 3 (THREE) TIMES A DAY NEEDED FOR ANXIETY 90 tablet 1 5 Active tirzepatide, weight loss, (Zepbound) 2.5 mg/0.5 mL injection Inject 0.5 mL (2.5 mg total) under the skin every 7 (seven) days. 2 mL 5 Active sertraline (ZOLOFT) 50 mg tablet TAKE 1 TABLET BY MOUTH ONCE DAILY 30 tablet 2 5 Active oxyCODONE (ROXICODONE) 10 mg immediate release tabletIndicatio ns:Chronic midline low back pain with bilateral sciatica Take 1 tablet (10 mg total) by mouth 3 (three) times a day if needed for severe pain for up to 28 days. Max Daily Amount: 30 mg 84 tablet 5 01/17/20 25 Active oxyCODONE (ROXICODONE) 10 mg immediate release tabletIndicatio ns:Chronic midline low back pain with bilateral sciatica Take 1 tablet (10 mg total) by mouth 3 (three) times a day if needed for severe pain for up to 28 days. 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 ([facility] V24) 02/29/2020 Iron deficiency 02/09/2019 GERD (gastroesophageal reflux disease) 8 IBS (irritable bowel syndrome) 11/25/2017 Chronic left shoulder pain 11/11/2016 Uveitis 03/27/2015 Overview (07/05/2024): Uveitis Glaucoma 03/06/2015 Insomnia 03/06/2015 Legally blind 03/06/2015 Leukopenia 03/06/2015 Overview (07/05/2024): Leukopenia Polyarthralgia 03/06/2015 Systemic lupus erythematosus ([facility] V24, [facility] V28) 03/06/2015 Overview (07/05/2024): Systemic lupus erythematosus Visual impairment in both eyes 03/06/2015 Resolved Problems Problem Noted Date Diagnosed Date Resolved Date History of laparoscopic cholecystectomy 09/04/2022 07/05/2024 Encounters Date Type Department Care Team Description 11/21/2024 2:30 PM EST Office Visit Internal [facility] [place] [address] [facility] [place] [address] Nam Sheriff MD Adult general medical examination (Primary Dx); Chronic midline low back pain with bilateral sciatica; Screening for deficiency anemia; Screening for hyperlipidemia; Screening for diabetes mellitus; Screening for thyroid disorder; Iron deficiency; Systemic lupus erythematosus, unspecified SLE type, unspecified organ involvement status ([facility] V24, [facility] V28); Stage 3a chronic kidney disease ([facility] V24, [facility] V28) 11/21/2024 Telephone Bariatric Surgery [address] [phone] Ainsley Andrade PA prior auth (Prior auth) 11/17/2024 Telephone [address]ariatric [address] [phone] Ainsley Andrade PA Advice Only 11/14/2024 1:30 PM EST Office Visit Bariatric [address] [phone] Ainsley Andrade PA Class 2 severe obesity due to excess calories with serious comorbidity and body mass index (BMI) of 35.0 to 35.9 in adult ([facility] V24, [facility] V28) (Primary Dx) 11/02/2024 Telephone Internal Medicine - [facility] [address] [facility] [place] [phone] Nam Sheriff MD Medication Problem 10/04/2024 Telephone Bariatric Surgery [address] [phone] Elizabeth Mariano MA from Last 3 Months Immunizations Name Administration Dates Next Due Influenza Quadravalent, MDCK , 0.5ml, preservative free (Flucelvax) 6mo and older 09/18/2022,07/26/2020,10/13/2018 Influenza Quadravalent, MDCK , 0.5ml, with preservative (Flucelvax) 6mo and older 08/10/2017 Influenza Quadrivalent, 0.5m l, preservative free (Fluarix; FluLaval; Fluzone) ages 6mo and older (Afluria) 3yo and older 09/06/2021 Influenza trivalent, 0.5mL, preservative free (Fluarix; FluLaval; Fluzone) ages 6mo and older (Afluria) 3 years and older 09/06/2021,08/20/2016,08/06/2016 Influenza trivalent, with pr eservative (Fluzone; Afluria) 6mo and older 08/20/2016,08/06/2016 Influenza, live, intranasal, quadrivalent (FluMist) 2yo to less than 50yo 09/18/2022 MUJIN SARS-CoV-2 COVID-19, mRNA, LNP-S, preservative free 09/06/2021,01/10/2021,12/19/2020 Pneumococcal polysaccharide 23 valent (Pneumovax 23) 2yo and older 10/17/2014 Tdap Tetanus diptheria acell ular pertussis (Boostrix; Adacel) 7yo and older 10/20/2022,02/05/2017 Surgical History Surgery Date Site/Laterality Comments OTHER SURGICAL HISTORY PROCEDURE: HISTORICAL GLAUCOMA OTHER SURGICAL HISTORY PROCEDURE: REPAIR DETACHED RETINA OTHER SURGICAL HISTORY PROCEDURE: VT ARTHRD ANT INTERBODY MIN DSC LUMBAR TUBAL LIGATION PROCEDURE: HISTORICAL TUBAL LIGATION APPENDECTOMY PROCEDURE: VT APPENDEC INDICATED PURPOSE OTH MAJOR PX NOT SPX COLONOSCOPY 06/17/2017 PROCEDURE: HISTORICAL COLONOSCOPY; COMMENT: Visually normal colon and terminal ileum; random colonic biopsies obtained: normal. 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 Family History Relation Name Status Comments Brother 1 Brother 2 Alive Father Mother Alive Social History Tobacco Use Types Packs/Day Years Used Date Smoking Tobacco: Never Smokeless Tobacco: Never Alcohol Use Standard Drinks/Week Comments Yes 0 (1 standard drink = 0.6 oz pur e alcohol) Comments Unknown Sex and Gender Information Value Date Recorded Sex Assigned at Not on file Legal Sex Female 4:32 PM EST Gender Identity Not on file Sexual Orientation Not on file Obstetrics History Last Filed Vital Signs Vital Sign Reading Time Taken Comments Blood Pressure 142/84 11/21/2024 2:35 PM EST Pulse 72 11/21/2024 2:35 PM EST Temperature 36.8 ??C (98.2 ??F) 08/09/2024 9:48 AM ES T Respiratory Rate - - Oxygen Saturation - - Inhaled Oxygen Concentration - - Weight 77.1 kg (169 lb 14.4 oz) 11/21/2024 2:35 PM EST Height 148.6 cm (4' 10.5 ) 11/21/2024 2:35 PM ES T Body Mass Index 34.9 11/21/2024 2:35 PM EST Plan of Treatment Upcoming Encounters Date Type Department Care Team (Late st Contact Info) Description 02/08/2025 10:15 AM EDT Office Visit Bariatric Surgery - [place] [address] [place] [phone] Ainsley Andrade PA [address] [address] 02/22/2025 9:45 AM EDT Office Visit Internal Medicine - [address] [phone] Nam Sheriff MD [address] [place] [id number] Health Maintenance Due Date Last Done Comments Breast Cancer Screening 1981 Hepatitis B Vaccines (1 of 3 - 19+ 3-dose series) 2000 Cervical Cancer Screening: Pap Smear 09/20/2020 09/20/2017 Depression Screening 08/19/2022 HIV Screening 08/19/2022 Hepatitis C Screening 08/19/2022 Medicare Annual Wellness Visit 08/19/2022 Social Influencers of Health Screening 08/19/2022 COVID-19 Vaccine ( season) 2024 09/06/2021, 01/10/2021, 12/19/2020 Influenza Vaccine (Season Ended) 2025 09/18/2022, 09/18/2022, 09/06/2021, Additional history exists Cholesterol Screening (Lipid Panel) 11/21/2029 11/21/2024, 05/05/2023 DTaP,Tdap,and Td Vaccines (3 - Td or Tdap) 10/20/2032 10/20/2022, 02/05/2017 Pneumococcal Vaccine: Pediatrics (0 to 5 Years) and At-Risk Patients (6 to 64 Years) Aged Out 10/17/2014 No longer eligible based on patient's age to complete this topic HIB Vaccines Aged Out No longer eligi ble based on patient's age to complete this topic HPV Vaccines Aged Out No longer eligi ble based on patient's age to complete this topic Hepatitis A Vaccines Aged Out No long er eligible based on patient's age to complete this topic IPV Vaccines Aged Out No longer eligi ble based on patient's age to complete this topic MMR Vaccines Aged Out No longer eligi ble based on patient's age to complete this topic Meningococcal ACWY Vaccine Aged Out N o longer eligible based on patient's age to complete this topic Meningococcal B Vaccine Aged Out No l onger eligible based on patient's age to complete this topic RSV Immunization Patients Under 20 months Aged Out No longer eligible based on patient's age to complete this topic Varicella Vaccines Aged Out No longer eligible based on patient's age to complete this topic Procedures Procedure Name Priority Date/Time Associated Diagnosis Comments COMPLETE BLOOD COUNT Routine 11/21/2024 3:03 PM EST Screening for deficiency anemia Iron deficiency COMPREHENSIVE METABOLIC PANEL Routine 11/21/2024 3:03 PM EST Screening for diabetes mellitus LIPID PANEL WITH REFLEX TO DIRECT LDL Routine 11/21/2024 3:03 PM EST Screening for hyperlipidemia THYROID STIMULATING HORMONE WITH REFLEX TO FREE T4 AND FREE T3 Routine 11/21/2024 3:03 PM EST Screening for thyroid disorder VITAMIN D 25 HYDROXY Routine 11/21/2024 3:03 PM EST Iron deficiency Systemic lupus erythematosus, unspecified SLE type, unspecified organ involvement status (CMS/HCC V24, CMS/HCC V28) Stage 3a chronic kidney disease (CMS/HCC V24, CMS/HCC V28) HM PAP SMEAR Routine 09/20/2017 from Last 3 Months or Most Recently Relevant to Health Maintenance Results * Thyroid stimulating hormone with reflex to free t4 and free t3 (11/21/2024 3:03 PM EST) Pathologist [facility] TSH 3.36 0.40 - 4.00 mcIU/mL LAB CHEMISTRY METHOD 11/21/2024 7:16 PM EST [facility] Blood Venous blood specimen / Unknown Venipuncture / Unknown 11/21/2024 3:03 PM EST 11/21/2024 3:03 PM EST us Nam Sheriff MD LAB BLOOD ORDERABLES Final Res ult [facility] [address] [place] [address], [place] [phone] * (ABNORMAL) Lipid panel with reflex to direct LDL (11/21/2024 3:03 PM EST) [facility] Cholesterol 178 0 - 200 mg/dL LAB CHEMISTRY METHOD 11/21/2024 7:10 PM [facility] Triglycerides 98 0 - 150 mg/dL LAB CHEMISTRY METHOD 11/21/2024 7:10 PM [facility] HDL 51 >=40 mg/dL LAB CHEMISTRY METHOD 11/21/2024 7:10 PM [facility] LDL Calculated 107(H) 0 - 100 mg/dL LAB CHEMISTRY METHOD 11/21/2024 7:10 PM [facility] VLDL Cholesterol Calvin 19.6 mg/dL LAB CHEMISTRY METHOD 11/21/2024 7:10 PM [facility] Non HDL Chol. (LDL+VLDL) 127 <145 mg/dL LAB CHEMISTRY METHOD 11/21/2024 7:10 PM [facility] Chol/HDL Ratio 3.5 0.0 - 4.4 LAB CHEMISTRY METHOD 11/21/2024 7:10 PM [facility] Blood Venous blood specimen / Unknown Venipuncture / Unknown 11/21/2024 3:03 PM EST 11/21/2024 3:03 PM EST us Nam Sheriff MD LAB BLOOD ORDERABLES Final Res ult [facility] [address] [place] [address], [place] [phone] * (ABNORMAL) Vitamin D 25 hydroxy (11/21/2024 3:03 PM EST) [facility] Vit D, 25-Hydroxy 27.7(L) 30.0 - 80.0 ng/mL LAB CHEMISTRY METHOD 11/21/2024 7:15 PM [facility] Blood Venous blood specimen / Unknown Venipuncture / Unknown 11/21/2024 3:03 PM EST 11/21/2024 3:03 PM EST us Nam Sheriff MD LAB BLOOD ORDERABLES Final Res ult Performing Organization Address [facility]/ZIP Co de Phone Number [facility] [address] [place] [address], [place] [phone] * (ABNORMAL) Complete blood count (11/21/2024 3:03 PM EST) [facility] WBC 4.0(L) 4.8 - 10.8 K/mcL LAB HEMETOLOGY METHOD 11/21/2024 6:42 PM [facility] RBC 4.70 3.80 - 4.80 M/mcL LAB HEMETOLOGY METHOD 11/21/2024 6:42 PM [facility] Hemoglobin 12.8 11.5 - 16.0 g/dL LAB HEMETOLOGY METHOD 11/21/2024 6:42 PM [facility] Hematocrit 40.1 35.0 - 47.0 % LAB HEMETOLOGY METHOD 11/21/2024 6:42 PM [facility] MCV 85.0 79.0 - 98.0 FL LAB HEMETOLOGY METHOD 11/21/2024 6:42 PM [facility] MCH 27.1 27.0 - 32.0 pcg LAB HEMETOLOGY METHOD 11/21/2024 6:42 PM EST [facility] MCHC 31.9(L) 32.0 - 37.0 g/dL LAB HEMETOLOGY METHOD 11/21/2024 6:42 PM EST [facility] RDW 13.4 11.0 - 15.0 % LAB HEMETOLOGY METHOD 11/21/2024 6:42 PM EST [facility] Platelets 312 130 - 400 K/mcL LAB HEMETOLOGY METHOD 11/21/2024 6:42 PM [facility] MPV 10.4 7.0 - 11.0 FL LAB HEMETOLOGY METHOD 11/21/2024 6:42 PM [facility] NRBC 0.0 <1.0 % LAB HEMETOLOGY METHOD 11/21/2024 6:42 PM [facility] NRBC Absolute 0.00 <0.10 K/mcL LAB HEMETOLOGY METHOD 11/21/2024 6:42 PM [facility] Blood Venous blood specimen / Unknown Venipuncture / Unknown 11/21/2024 3:03 PM EST 11/21/2024 3:03 PM EST us Nam Sheriff MD LAB BLOOD ORDERABLES Final Res ult [facility] [address] [place] [address], * (ABNORMAL) Comprehensive metabolic panel (11/21/2024 3:03 PM EST) Sodium 136 133 - 145 mmol/L LAB CHEMISTRY METHOD 11/21/2024 7:10 PM [facility] Potassium 3.4(L) 3.5 - 5.5 mmol/L LAB CHEMISTRY METHOD 11/21/2024 7:10 PM EST [facility] Chloride 101 96 - 110 mmol/L LAB CHEMISTRY METHOD 11/21/2024 7:10 PM [facility] CO2 28 21 - 32 mmol/L LAB CHEMISTRY METHOD 11/21/2024 7:10 PM [facility] Anion Gap 7 3 - 11 LAB CHEMISTRY METHOD 11/21/2024 7:10 PM [facility] Glucose 85 70 - 100 mg/dL LAB CHEMISTRY METHOD 11/21/2024 7:10 PM [facility] BUN 10 5 - 25 mg/dL LAB CHEMISTRY METHOD 11/21/2024 7:10 PM [facility] Creatinine 0.58 0.50 - 1.10 mg/dL LAB CHEMISTRY METHOD 11/21/2024 7:10 PM [facility] eGFR 115 >=60 mL/min/1. 73m2 LAB CHEMISTRY METHOD 11/21/2024 7:10 PM [facility] Comment:Calculation based on the??Chronic Kidney Disease Epidemiology Collaboration (CKD-EPI) equation refit??without adjustment for race. BUN/Creatinine Ratio 17.2 LAB CHEMISTRY METHOD 11/21/2024 7:10 PM [facility] Calcium 9.4 8.5 - 10.5 mg/dL LAB CHEMISTRY METHOD 11/21/2024 7:10 PM [facility] AST (SGOT) 16 10 - 42 unit/L LAB CHEMISTRY METHOD 11/21/2024 7:10 PM [facility] ALT (SGPT) 21 10 - 60 unit/L LAB CHEMISTRY METHOD 11/21/2024 7:10 PM [facility] Alkaline Phosphatase 108 42 - 121 unit/L LAB CHEMISTRY METHOD 11/21/2024 7:10 PM [facility] Total Protein 7.6 6.0 - 8.0 g/dL LAB CHEMISTRY METHOD 11/21/2024 7:10 PM [facility] Albumin 3.6 3.2 - 5.0 g/dL LAB CHEMISTRY METHOD 11/21/2024 7:10 PM EST [facility] Total Bilirubin 0.4 0.0 - 1.4 mg/dL LAB CHEMISTRY METHOD 11/21/2024 7:10 PM EST [facility] Blood Venous blood specimen / Unknown Venipuncture / Unknown 11/21/2024 3:03 PM EST 11/21/2024 3:03 PM EST Nam Sheriff MD LAB BLOOD ORDERABLES Final Res ult [facility] [address] [place] [address], [place] [phone] * Pap Smear (09/20/2017) Pap smear No interpretation with ,abstracted Historical Provider HEALTH MAINTENANCE Final Result from Last 3 Months or Most Recently Relevant to Health Maintenance Insurance MEDICA[place] - [place] MEDICARE Care Teams Personalized Living Manager Relationship Specialty Start Date End Date Nam Sheriff MD [address] [place] [address] PCP - General Internal Medicine 08/07/24
== END 2025-01-01 11:00 | disposition home or self-care (01) ==
PROVIDERS: PCP Internal Medicine; Visit Provider Psychiatry & Neurology Neurology
DX: G24.3 Spasmodic torticollis (principal)
CPT/HCPCS: 64616

== ENCOUNTER → 2025-01-01 10:32 | Outpatient (BNVA) | payer MEDICARE, MEDICAID, SELFPAY | PROVIDERS: PCP Internal Medicine; Visit Provider Psychiatry & Neurology Neurology | DX: G24.3 Spasmodic torticollis (principal) | CPT/HCPCS: 64616; 99211; J0585 ==

== ENCOUNTER 2025-02-09 11:57 | Outpatient (AMB) | payer MEDICARE, MEDICAID, SELFPAY ==
[2025-02-09 11:56] VITALS: BP 124/82; PULSE 105; O2SAT 96; BMI 35.7
--- NOTE | 2025-02-09 11:56 | A.OFFVIS_ITS ---
Vital Signs 02/09/25 11:56 Height 4 ft 9.5 in Weight 168 lb BMI 35.7 BP 124/82 Blood Pressure Location Rt brachial Pulse 105 H Pulse Source Pulse Oximeter Pulse Oximetry (%) 96 Oxygen Delivery Method Room Air Intake Visit Reasons: Follow up Accompanied by: Self / Same As Patient Allergies minocycline Allergy (Unknown, Verified 01/01/25 10:37) Itching sulfamethoxazole [From Bactrim] Allergy (Unknown, Verified 01/01/25 10:37) Itching timolol Allergy (Unknown, Verified 01/01/25 10:37) Itching trimethoprim [From Bactrim] Allergy (Unknown, Verified 01/01/25 10:37) Itching adalimumab [From Humira] Allergy (Verified 01/01/25 10:37) Itching infliximab [From Remicade] Allergy (Verified 01/01/25 10:37) Itching Medication List - Last Reconciled 02/09/25 by VITA Huertas cyclobenzaprine 10 mg PO cyclobenzaprine 5 mg PO BEDTIME fluticasone propionate 50 mcg/actuation intranasal gabapentin 100 - 300 mg (1 - 3 x 100 mg) PO BEDTIME 30 days hydroxychloroquine mg PO hydroxyzine HCl 25 mg PO indomethacin 25 mg PO TID 7 days magnesium oxide 400 mg PO BEDTIME 30 days naproxen 500 mg PO olopatadine 0.2% 1 drp ophthalmic (eye) onabotulinumtoxinA (Botox) 200 units IM ONCE 12 weeks ondansetron 4 - 8 mg (1 - 2 x 4 mg) PO Q4H PRN 30 days oxycodone 10 mg PO Q12H PRN riboflavin (vitamin B2) 400 mg PO QAM 30 days sumatriptan succinate 50 - 100 mg orally at onset of headache, may repeat in 2 hrs PRN; max 2 tabs per day or 4 tabs/week (may take with Ibuprofen) 30 days sumatriptan succinate 100 mg PO ONCE HPI Comments Details: 44-year-old female presents for urgent visit for new onset left-sided headache. Patient called the service 1 week ago, reporting new onset left-sided headache which started couple of days before, which is different from her baseline migraine and typical left-sided neck pain. She stated pain was predominantly in the left postauricular occipital region and left temporal region and left eye and not associated with photophobia, phonophobia or nausea or vomiting.. At the time she denied left ear pain, fevers, preceding accidents/injuries. She reports in the weeks prior, she had undergone right sided dental work, which required at least 2 courses of antibiotics. Patient had also underwent recent C-spine MRI, ordered by [facility], and was being s cheduled for cervical injection to treat left-sided cervicalgia radiating into the left upper extremity. That point, we submitted orders for indomethacin and gabapentin, unfortunately neither of these was effective. Patient then called service back, reporting new onset of left ear pain along with continuation of the left sided headache. Patient was advised to go to urgent care or ER, to rule out infectious process. Patient did go to [facility], labs were notable for slightly low magnesium, and exam including ear exam was reassuring, and they felt headache was likely secondary to chronic cervicalgia. No head imaging was done. Patient states she was restarted on magnesium. Patient again reached out to us. She continues to have the left-sided headache, still left lateral occipital region and left temporal region.. The pain is constant, however touching it or talking or opening her mouth exacerbates pain. When the pain is exacerbated it is this brief sudden stopped per in her tracks sharp pain. 12/19/2024 C-spine MRI without contrast at [facility]: FINDINGS BY LEVEL: Minimal posterior disc bulges are present at C3-4, C4-5, C5- 6, and C6-7. However, there is no significant central stenosis or neural foraminal narrowing at any level in the cervical spine. IMPRESSION: Mild degenerative changes of the cervical spine, but no significant stenosis or cord/nerve root compression at any level. Previous C-spine MRI with and without contrast on 06/10/2022 at [facility]: IMPRESSION: 1. Normal appearance to the cervical spinal cord. No spinal cord lesions or abnormal enhancement and no abnormal leptomeningeal enhancement. Note that the upper thoracic region is partially obscured by metallic hardware artifact. 2. Slight lordotic reversal centered at C3-C4 with a small central disc protrusion at this level without cord impingement or significant canal stenosis. 3. Multilevel facet arthropathy, most apparent on the left at C3-C4 with mild left-sided neural foraminal narrowing at this level. [facility] Medical History Cataract Glaucoma Anemia Arthritis Fibromyalgia Lupus GERD (gastroesophageal reflux disease) Legally blind Congenital rubella Surgical History History of partial hysterectomy Hx of cholecystectomy History of ankle surgery H/O breast biopsy Hx of shoulder surgery History of surgery History of back surgery Hx of appendectomy Family History Father AIDS Legally blind Family/Other Kidney disease Heart disease Mother Diabetes Hypertension Thyroid disease Family/Other Lupus ADHD Bipolar 1 disorder Depression Anxiety Social History Household Members: Children Household Members Other:: 2 kids Alcohol intake: never Patient Tobacco Use Status: Never used Tobacco Physical Exam Vital Signs: Last Vital Signs Pulse 105 H 02/09/25 11:56 BP 124/82 02/09/25 11:56 Pulse Ox 96 02/09/25 11:56 Oxygen Delivery Method Room Air 02/09/25 11:56 BMI result Body Mass Index 35.7 Const Orientation/consciousness: patient oriented x3 Resp Effort & Inspection: normal respiratory effort and able to speak in complete sentences Neuro Other: Baseline dysconjugate gaze. No photophobia appreciated. Facial asymmetry: Left cheek prominence, left eyebrow resting higher than right, left palpable fissure smaller than right. Palpable tenderness along left greater occipital nerve distribution, left temporal region. No significant tenderness elicited upon palpation of the temporal tendon insertion site in the coronoid process of the mandible. Forward head posturing. Limited cervical range of motion. Bilateral posterior cervical tightness Bilateral Spurling, elicits mild discomfort radiating up the medial, more so on the right occipital region. Bilateral TM- no effusion, TM scarring likely due to history of TM tube placement as a child. No discomfort upon ear pull tug test. No cervical lymphadenopathy appreciated. General: patient oriented x3 Cognition (Neuro): normal cognition Gait exam (Neuro): Normal gait present Motor exam (neuro): 5/5 motor strength present throughout Pupils: Normal pupillary reactivity/response: bilateral Psych Appearance: grossly normal Mental Status: mental status grossly normal Speech and movement: Normal speech and movement present Affect: normal affect Attitude: cooperative Assessment & Plan Assessment & Plan (1) Left-sided headache: Code(s): R51.9 - Headache, unspecified Category: Medical (2) New onset headache: Code(s): R51.9 - Headache, unspecified Category: Medical Plan Stop indomethacin and gabapentin orders- ineffective Continue magnesium 400 mg daily at bedtime Start prednisone 10 mg tab taper- start at 60 mg daily in a.m. x3 days, and decreased by 10 mg every 3 days then stop. Start omeprazole 20 mg daily for GI protection Start carbamazepine ER 100 mg twice a day. If carbamazepine well tolerated, recheck CBC and CMP in 1 month. Patient advised to undergo the following workup, to assess for underlying secondary etiologies of new onset left-sided side locked headache associated with facial asymmetry, in setting of autoimmune disorder lupus. 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 Will follow-up upon review of above and patient to follow-up in clinic in 2-3 weeks or sooner prn. Orders: Orders CT sinus wo IV con Today R51.9 - Headache, unspecified Erythrocyte Sedimentation Rate Today G50.9 - Disorder of trigeminal nerve, unspecified, M32.9 - Systemic lupus erythematosus, unspecified, R51.9 - Headache, unspecified C Reactive Protein Today G50.9 - Disorder of trigeminal nerve, unspecified, M32.9 - Systemic lupus erythematosus, unspecified, R51.9 - Headache, unspecified Complete Blood Count Auto Diff Today G50.9 - Disorder of trigeminal nerve, unspecified, M32.9 - Systemic lupus erythematosus, unspecified, R51.9 - Headache, unspecified Comprehensive Met. Panel Today G50.9 - Disorder of trigeminal nerve, unspecified, M32.9 - Systemic lupus erythematosus, unspecified, R51.9 - Headache, unspecified TSH reflex Free T4 Today G50.9 - Disorder of trigeminal nerve, unspecified, M32.9 - Systemic lupus erythematosus, unspecified, R51.9 - Headache, unspecified Lyme IgG/IgM w/reflex to WB Today G50.9 - Disorder of trigeminal nerve, unspecified, M32.9 - Systemic lupus erythematosus, unspecified, R51.9 - Headache, unspecified Medications: New carbamazepine ER 100 mg PO BID 30 days 60 tabs 1RF G50.9 - Disorder of trigeminal nerve, unspecified, R51.9 - Headache, unspecified omeprazole For GI protection while on prednisone 20 mg PO DAILY 30 days 30 caps 0RF prednisone 6 tabs x's 3 days, 5 tabs x's 3 days, 4 tabs x's 3 days, 3 tabs x's 3 days, 2 tabs x's 3 days, 1 tab x's 3 days, then stop. orally daily; 21 days 63 tabs 0RF G50.9 - Disorder of trigeminal nerve, unspecified, R51.9 - Headache, unspecified Coding Level of Care Code Est Pt Level 4 (05099) Diagnoses Left-sided headache R51.9 New onset headache R51.9
--- OUTSIDE RECORDS SUMMARY | 2025-02-09 11:59 | XMS_ITS | Data Portability ---
Author Organization [facility], [facility] Address [address] [place] [address] Care Team Providers Care Snake Charmer Name Role Phone WESLEY BANKS Primary Care Provider [phone] Assessment Encounter Date Assessment Date Assessment LastModified by Organization Details LastModified Time 10/03/2024 10/03/2024 CHIEF COMPLAINT: Left ankle pain, instability and weakness HISTORY OF PRESENT ILLNESS: Annette is a 44-year-old woman with Lupus and fibromyalgia who is well-known to me as she is status post previous revision peroneal tendon repair with Artelon augmentation and peroneal tenolysis/tenosyno vectomy in April 2020. She underwent previous left ankle arthroscopy, Brostrom-Figueroa reconstruction and peroneus brevis repair 8 months prior to this. I last saw her in May 2024, almost 4 months ago. We recall that she suffered a reinjury on February 14, 2024. She has been treated in a CAM boot and ASO brace. She has not done physical therapy recently as she does not have time for this as she is taking care of her grandchildren. She has been doing home exercises. She reports both lateral and medial ankle and hindfoot pain as well as some medial calf pain and a sense of weakness, instability and numbness. She has a history of previous lumbar spine fusion surgery at age 15 at [facility] and has recently seen Dr. Yung for her spine. She is here today for EMG review. She also had a recent lumbar spine MRI. She had a recent lumbar spine epidural injection 2-3 weeks ago, which provided partial relief. She reports low back pain with radiation down her left lower extremity. She denies any recent left ankle injury. Past family, medical, social history and review of systems has been reviewed, updated and is located in the patient? s chart. She has fibromyalgia among other medical problems and is seen by an wire brush maker in [place]. She is a nonsmoker and is not diabetic. PHYSICAL EXAMINATION: General: 4'-09/21 , obese, healthy appearing, in no acute distress Psych: alert and oriented x3, normal mood Skin: intact without ulceration or lesion, normal turgor Lungs: respirations unlabored Cardiac: heart rate regular, normal peripheral pulses Musculoskeletal: On standing exam, she has normal and symmetric foot and ankle alignment, her gait is mildly antalgic on the left. On seated exam, she has well-healed incisions about the left ankle. He is tender over the ATFL, peroneal tendons and posterior tibial tendon. There is some weakness of the peroneals with resisted hindfoot eversion. There is no peroneal bogginess, swelling or subluxation. She has good strength with resisted hindfoot inversion. Her ankle is stable to varus and valgus stress and anterolateral drawer testing. There is no appreciable swelling. She is distally neurovascularly intact. X-RAYS/MRI: Recent x-rays and MRI images were independently reviewed, demonstrating status post previous Brostrom reconstruction with some postsurgical thickening of the lateral ligaments, status post peroneus brevis repair with mild peroneus brevis tendinosis, no evidence of peroneal tendon tear or significant tenosynovitis. The posterior tibial tendon appears normal with minimal tendinosis. EMG: Her EMG from 09/25/2024 was normal by report. Her lumbar spine MRI was limited by motion and metal artifact but did not demonstrate any significant structural abnormality. IMPRESSION: Left peroneal tendinitis, posterior tibial tendinitis, status post 2 previous ankle surgeries, peroneal weakness and numbness PLAN: I explained that her left ankle MRI is generally reassuring. I am concerned that some of her weakness maybe coming from her lumbar spine. Additionally, her lupus and fibromyalgia are likely contributory in terms of her left ankle pain. I have recommended continued home exercises and she may wear her ankle brace as needed. Another course of physical therapy would also be an option. She will follow with me as needed if her pain worsens. Another ankle surgery could be considered although I am not confident that this would be curative. All questions were answered. [email or web address] Not available 10/03/2024 13:36:42 Plan of Treatment Reminders Order Date Submit Date Provider Last Modified By Organization Details Last Modified Time Details Appointments SPINE RECHECK 2024 01:15P [place] blair PA-C Not available Not available Not available Lab None recorded. Referral physical therapist referral - Evaluate & RxCervica l Stabiliza tion Program 2024 025 Not available 12/27/2024 14:04:29 physical therapist referral - DIAGNOSIS : Left shoulder impingeme nt2x/week x 6 weeksTher apy Start:Eliana luate and TreatGoal : - Decrease pain/swel ling - Increase range of motion - Increase strength and/or endurance Recommend ed Modalitie s: - Heat prior to stretchin g- Ice at the end of the session- Additiona l modalitie s prn, but emphasis should be on manual therapyPr ecautions : WBAT, no motion restricti onsTherap eutic Exercise: - Passive, active-as sist, active range of motion as tolerated , focusing on gradual progressi on over time- Scapula r shrugs/re tractions - should be major focus!- Submaxima l isometric rotator cuff strengthe marissa- Build to theraband and weight resistanc e (max 3lbs) as ableEmpha size importanc e of home program, 2x/day 2024 025 [email or web address] Not available 10/18/2024 06:42:48 physical therapist referral - Evaluate & RxCervica l Stabiliza tion Program 2024 025 [email or web address] Not available 10/04/2024 14:40:03 Procedures None recorded. Surgeries None recorded. Imaging MRI, cervical spine, w/o contrast - mri cervical spine without contrast for cervical radiculop athy 2024 025 [email or web address] [facility] ([facility]), [address], [place], [address], 12/27/2024 14:04:29 XR, shoulder, 2 or more view - L shoulder 4 view rm 215 2024 025 [email or web address] [facility], [address], [place], [address], 10/18/2024 06:42:48 XR, cervical spine, 4 or 5 view - 327 4v cspine 2024 025 [email or web address] 8 [facility], [address], [address], [place], [address], 10/04/2024 10:18:25 Medication Orders None recorded. Patient TargetsNo targets recorded. Patient InstructionsNo instructions recorded. Reason for Referral Physical Therapist Referral for Cervical radiculopathy Evaluate & RxCervical Stabilization Program Referring Physician: Rey Yung, Orthopedic Surgery, Encounter Date: 10/04/2024 Physical Therapist Referral for Pain of left shoulder joint DIAGNOSIS: Left shoulder cwfbbtrnnre6j/week x 6 weeksTherapy Start:Evaluate and TreatGoal: - Decrease pain/swelling - Increase range of motion - Increase strength and/or enduranceRecommended Modalities: - Heat prior to stretching- Ice at the end of the session- Additional modalities prn, but emphasis should be on manual therapyPrecautions: WBAT, no motion restrictionsTherapeutic Exercise: - Passive, active-assist, active range of motion as tolerated, focusing on gradual progression over time- Scapular shrugs/retractions - should be major focus!- Submaximal isometric rotator cuff strengthening- Build to theraband and weight resistance (max 3lbs) as ableEmphasize importance of home program, 2x/day Referring Physician: Carol Stokes, Orthopedic Surgery, Encounter Date: 10/09/2024 Physical Therapist Referral for Cervical radiculopathy Evaluate & RxCervical Stabilization Program Referring Physician: Soha Guevara, Orthopedic Surgery, Encounter Date: 12/15/2024 Results Created Date Observation Date Name Description Value Unit Range Abnormal Flag Note LastModifiedBy Organization Detail LastModifiedTime 09/26/19 25 09/25/2024 nerve condu ction study /EMG, lower extre mity (PROC ) No observ ation record ed. [facility] ([facility]) [address] [facility] [address], [place], [address], 09/26/2024 16:37:39 10/04/19 25 10/04/2024 XR, cervi anyi spine , 4 or 5 view http:/ [email or web address] ?Encry pted=s hAaTro YD8dLq bEUv6g %2BXZw aYqtaq 0bqfl% 2Fg9IQ a4ajBk vP9nXo QUaueC m3YtLR FvZlgJ JJ8mAn HZtai3 1i1519 AC0Kqb 3mAVae lKiQtr MwF INTERFACE [facility] [address], [place], [address], 10/04/2024 09:59:59 10/04/19 25 10/04/2024 XR, cervi anyi spine , 4 or 5 view http:/ [email or web address] ?Encry pted=s hAaTro YD8dLq bEUv6g %2BXZw aYqtaq 0bqfl% 2Fg9IQ a4ajBk vP9nXo QUaueC m3YtLR FvZlgJ JJ8mAn HZtai3 5k7338 AC0Kqb 3mAVae lKiQtr MwF INTERFACE [facility] [address], [place], [address], 10/04/2024 10:00:01 10/09/19 25 10/09/2024 XR, shoul harsh, 2 or more view http:/ [email or web address] ?Encry pted=s hAaTro YD8dLq bEUv6g %2BXZw aYqtaq 0bqfl% 2Fg9IQ a4ajBk vP9nXo QUaueC m3YtLR FvZlgJ JJ8mAn HZtai3 0l0036 AC0Kqb 3yFUaS mKiQtr MwF INTERFACE [facility] [address], [place], [address], 10/09/2024 15:51:49 10/09/19 25 10/09/2024 XR, kira house, 2 or more view http:/ [email or web address] ?Encry pted=s hAaTro YD8dLq bEUv6g %2BXZw aYqtaq 0bqfl% 2Fg9IQ a4ajBk vP9nXo QUaueC m3YtLR FvZlgJ JJ8mAn HZtai3 6h7613 AC0Kqb 3yFUaS mKiQtr MwF INTERFACE [facility] [address], [place], [address], 10/09/2024 15:51:51 12/22/19 25 12/19/2024 MRI, cervi anyi spine , w/o contr ast [facility] Access ion Number : [id number] 275 Patien t Name: Truong espino, xTuriona [employer] l Record Number : [id number] Date of : 1979 Date of Exam: 2024 Referr ing Physic amberly: Soha Augustine i [facility] [address] [facility] [address] Exam: MR Cervic al Spine (C-) CPT 24549 Room Descri ption: [place] Siem Espr 1.5 MR Cervic al Spine (C-) CPT 66299 INDICA TION: Radicu lopath y, cervic al region . TECHNI QUE: Multip lanar, multis equenc e MRI of the cervic al spine was perfor med withou t intrav enous contra st. COMPAR PRESTON: None. FINDIN GS: ALIGNM ENT, VERTEB LIZ, MARROW , AND DISCS: There is straig htenin g of the typica l cervic al lordos is withou t signif icant sublux ation. Upper thorac ic spine is partia lly obscur ed by suscep tibili ty artifa ct from extens corinne fusion hardwa re. Cervic al verteb ral body height s are preser bry. There is no signif icant marrow signal abnorm ality. There is minima l scatte red loss of disc space. DIRECTOR ON AIR IOR FOSSA AND CORD: Visual ized global president ior fossa is normal . The cervic al cord is normal in signal and calibe r. PARASP INAL TISSUE S: Soft tissue s of the neck are unrema rkable . Major cervic al flow voids are presen t. FINDIN GS BY LEVEL: Minima l global president ior disc bulges are presen t at C3-4, C4-5, C5-6, and C6-7. Howeve r, there is no signif icant centra l stenos is or neural forami nal narrow ing at any level in the cervic al spine. IMPRES RYAN: Mild degene rative change s of the cervic al spine, but no signif icant stenos is or cord/n erve root compre ssion at any level. Electr onical ly Signed By: Ene [address] [facility] ([facility]) [address], [place], [address], 12/25/2024 13:06:45 12/22/19 25 12/19/2024 MRI, cervi anyi spine , w/o contr ast No observ ation record ed. [facility] [address], [place], [address], 12/25/2024 13:08:38 Result Notes None recorded. Problems Name Problem SNOMED Code Status Onset Date Resolution Date Notes Provider Name and Address Organization Details Recorded Time Degenerat ion of lumbar intervert ebral disc 81105393 Active 2023 Rey Yung MD [address], [place], [address] , [place] - [facility] 4 09:28:24 Lumbar spondylos is 591169979 Active 2023 LARY wiggins [place] - [facility] 4 08:50:11 Adolescen t idiopathi c scoliosis of thoracolu mbar spine 534576483413 109 Active 2023 Rey Yung MD [address], [place], [address] , [facility] 4 09:28:27 Trochante yefri bursitis of left hip 073539673690 103 Active 2023 Elvira Foley PA-C [address], [place], [address] , [facility] 4 13:57:29 Cervical spondylos is 128886960 Active 2024 Rey Yung MD [address], [place], [address] , [facility] 5 11:49:28 Cervical radiculop athy 29099714 Active 2024 SOHA GUEVARA PA-C [address], [place], [address] , [facility] 5 14:09:56 Calcific tendiniti s of left shoulder 266388314581 108 Active 2017 Problem Code: M75.32; Problem Code Type: ICD-10; Status: 'A'; Not Available [facility] 4 11:57:39 Problem Notes None recorded. Procedures Surgical History Date Name Laterality Status Provider Name and Address Organization Details Recorded Time 5 Sports Shoulder completed Carol Stokes MD [address], [place], [address], [facility] 10/09/2024 16:22:34 4 Hip Kenalog 1cc Injection, L/R completed Elvira Foley PA-C [address], [place], [address], [facility] 09/05/2024 13:57:01 8 procedure on shoulder joint completed KEVIN ONEILL [facility] 10/09/2024 15:42:16 Imaging Results Imaging Date Name Status LastModified by Organiz ation Details LastModified Time 09/25/2024 nerve conduction study/EMG, lower extremity (PROC) completed [facility] ([facility]) [address], [place], [address], 09/26/2024 16:37:39 10/04/2024 XR, cervical spine, 4 or 5 view completed [facility] [address], [place], [address], 10/04/2024 09:59:59 10/04/2024 XR, cervical spine, 4 or 5 view completed [facility] [address], [place], [address], 10/04/2024 10:00:01 10/09/2024 XR, shoulder, 2 or more view completed [facility] [address], [place], [address], 10/09/2024 15:51:49 10/09/2024 XR, shoulder, 2 or more view completed [facility] [address], [place], [address], 10/09/2024 15:51:51 12/19/2024 MRI, cervical spine, w/o contrast completed [address] [facility] ([facility]) [address], [place], [address], 12/25/2024 13:06:45 12/19/2024 MRI, cervical spine, w/o contrast completed [facility] ([facility]) [address], [place], [address], 12/25/2024 13:08:38 Procedure Notes None recorded. Medical Equipment None Reported. Allergies Allergen ID Allergen Name Allergen Category Reaction Reaction Severity Criticality Documentation Date Start Date Code Code System Note Provider Name and Address Organization Details Recorded Time 046199 minocycli ne medicatio n Not available Not available Not available 05/15/2024 6980 RxNorm Jessie wiggins [place] - [facility] 4 12:35:32 102952 timolol medicatio n Not available Not available Not available 05/15/2024 04030 RxNorm Jessie wiggins [place] - [facility] 4 12:35:52 93879 Bactrim medicatio n tachycard ia Not available Not available 11/22/20232017 63030 9 RxNorm Not Available [facility] 14:47:18 72935 Humira medicatio n tachycard ia Not available Not available 11/22/20232017 08722 4 RxNorm Not Available [facility] 14:47:18 Medications Name Sig Start Date Stop Date Status Note LastModified by Organization Details LastModified Time amoxicillin 500 mg capsule TAKE 1 CAPSULE BY MOUTH 4 (FOUR) TIMES DAILY UNTIL FINISHED active Not Available Not Available No t Available acetaminoph en 325 mg tablet TAKE 2 TABLETS BY MOUTH EVERY 4 HOURS NEEDED FOR MILD PAIN 05/15 completed Not Available Not Available Not Available loperamide 2 mg capsule TAKE 1 CAPSULE BY MOUTH 4 (FOUR) TIMES DAILY NEEDED FOR DIARRHEA active Not Available Not Available No t Available cetirizine 10 mg tablet TAKE 1 TABLET BY MOUTH ONCE DAILY 10/04 completed Not Available Not Available Not Available azithromyci n 250 mg tablet Take two tablets today and than one tablet daily until finished 05/15 completed Not Available Not Available Not Available ibuprofen 800 mg tablet TAKE 1 TABLET BY MOUTH EVERY 8 HOURS NEEDED FOR PAIN 10/04 completed Not Available Not Available Not Available sumatriptan 100 mg tablet TAKE 1/2 TO 1 TABLET BY MOUTH AT ON set OF HEADACHE. MAY REPEAT IN 2 HOURS NEEDED , maximum 2 tabs/day OR 4 tabs/week (MAY TAKE WITH ibuprofen ) active Not Available Not Available No t Available phenazopyri dine 200 mg tablet TAKE 1 TABLET BY MOUTH 3 (THREE) TIMES A DAY FOR 2 DAYS 02/09 completed Not Available Not Available Not Available cromolyn 4 % eye drops INSTILL 1 DROP INTO AFFECTED EYE(S) 4 (FOUR) TIMES DAILY 02/09 completed Not Available Not Available Not Available acetaminoph en 300 mg-codeine 30 mg tablet TAKE 1 TABLET BY MOUTH EVERY 6 HOURS NEEDED FOR PAIN active Not Available Not Available No t Available valacyclovi r 500 mg tablet TAKE 1 TABLET BY MOUTH two (2) times a day FOR 3 DAYS active Not Available Not Available No t Available Azopt 1 % eye drops,suspe nsion INSTILL 1 DROP IN THE LEFT EYE 3 (THREE) TIMES A DAY 10/04 completed Not Available Not Available Not Available famotidine 20 mg tablet TAKE 1 TABLET BY MOUTH two (2) times a day NEEDED FOR heartburn active Not Available Not Available No t Available magnesium oxide 400 mg (241.3 mg magnesium) tablet TAKE 1 TABLET BY MOUTH ONCE DAILY AT BEDTIME 10/04 completed Not Available Not Available Not Available triamcinolo ne acetonide 0.025 % topical cream Apply to affected areas twice daily 12/15 completed Not Available Not Available Not Available pantoprazol e 40 mg tablet,osito yed release TAKE 1 TABLET BY MOUTH ONCE DAILY. TAKE IN THE MORNING ON EMPTY STOMACH, WAIT 30 MINUTES AND THEN eat TO activate THE medicatio n active Not Available Not Available No t Available olopatadine 0.1 % eye drops instill 1 drop by ophthalmi c route every day into both eyes 10/04 completed Not Available Not Available Not Available brimonidine 0.2 % eye drops INSTILL 1 DROP IN THE LEFT EYE two (2) times a day 10/04 completed Not Available Not Available Not Available sertraline 25 mg tablet Take 1 tablet nightly In addition to 50mg tablet every AM. 01/23 completed Not Available Not Available Not Available hydroxyzine HCl 25 mg tablet TAKE 1 TABLET BY MOUTH 3 (THREE) TIMES A DAY NEEDED FOR ANXIETY active Not Available Not Available No t Available hydroxychlo roquine 200 mg tablet TAKE 1 TABLET BY MOUTH two (2) times a day active Not Available Not Available No t Available ibuprofen 600 mg tablet TAKE 1 TABLET BY MOUTH 4 (FOUR) TIMES DAILY NEEDED FOR PAIN 05/15 completed Not Available Not Available Not Available polyethylen e glycol 3350 17 gram/dose oral powder DISSOLVE 17 grams IN WATER AND TAKE ONCE DAILY 02/09 completed Not Available Not Available Not Available ondansetron 4 mg disintegrat ing tablet place 1 TO 2 TABLETS UNDER THE TONGUE TO DISSOLVE EVERY 4 HOURS NEEDED FOR NAUSEA AND FOR VOMITING 01/23 completed Not Available Not Available Not Available fluticasone propionate 50 mcg/actuati on nasal spray,suspe nsion SPRAY TWICE INTO EACH NOSTRIL ONCE DAILY 12/15 completed Not Available Not Available Not Available sertraline 50 mg tablet TAKE 1 TABLET BY MOUTH ONCE DAILY active Not Available Not Available No t Available naproxen 500 mg tablet TAKE 1 TABLET BY MOUTH two (2) times a day NEEDED FOR PAIN. TAKE WITH FOOD active Not Available Not Available No t Available dorzolamide 2 % eye drops INSTILL 1 DROP IN THE LEFT EYE 3 (THREE) TIMES A DAY 10/04 completed Not Available Not Available Not Available oxycodone 5 mg tablet TAKE 1 TABLET BY MOUTH EVERY 6 HOURS NEEDED FOR PAIN 02/09 completed Not Available Not Available Not Available DentaGel 1.1 % After Brushing With Toothpast e, Rinse As Usual. Apply Gel To Teeth With Toothbrus h For 1 Minute. After 1 Minute, Expectora te Gel. Do Not Eat, Drink, Or Rinse For 30 Minutes. 02/09 completed Not Available Not Available Not Available cyclobenzap rine 5 mg tablet 10/04 completed Not Available Not Available Not Available nitrofurant oin monohydrate /macrocryst als 100 mg capsule TAKE 1 CAPSULE BY MOUTH EVERY TWELVE HOURS FOR 5 DAYS 02/09 completed Not Available Not Available Not Available Plaquenil 10/04 completed Not Available Not Available Not Available sodium fluoride 1.1 %-potassium nitrate 5 % dental paste Use 2-3x/keyla y, Spit Out Excess Do Not Rinse With Water. No Eating Or Drinking For 45 Min After 02/09 completed Not Available Not Available Not Available oxycodone 10 mg tablet TAKE 1 TABLET BY MOUTH 3 (THREE) TIMES A DAY NEEDED FOR SEVERE PAIN FOR up TO 28 DAYS maximum DAILY AMOUNT 30 MG 01/23 completed Not Available Not Available Not Available diclofenac 1 % topical gel APPLY 2 grams TO HANDS 4 (FOUR) TIMES DAILY NEEDED FOR PAIN DIRECTED active Not Available Not Available No t Available cholecalcif oscar (vitamin D3) 50 mcg (2,000 unit) tablet TAKE 1 TABLET BY MOUTH ONCE DAILY active Not Available Not Available No t Available oxycodone HCl-oxycodo ne-ASA 1Q 4-[address] WHILE ON THIS MEDICATIO N 10/09 completed Statu s: 'Curr ent'; Not Available Not Available Not Available Lubricant Eye (PG-PEG 400) 0.4 %-0.3 % drops INSTILL 1 DROP IN EACH EYE 4 (FOUR) TIMES DAILY NEEDED FOR DRY eyes 10/04 completed Not Available Not Available Not Available tafluprost (PF) 0.0015 % eye drops in a dropperette INSTILL 1 DROP IN THE LEFT EYE EVERY NIGHT AT BEDTIME 02/09 completed Not Available Not Available Not Available Radha-tamra 8.6 mg tablet TAKE 2 TABLETS BY MOUTH ONCE DAILY 02/09 completed Not Available Not Available Not Available Aimovig Autoinjecto r 140 mg/mL subcutaneou s auto-inject or INJECT 1ML UNDER THE SKIN ONCE EVERY 30 DAYS 02/09 completed Not Available Not Available Not Available Eye Allergy Itch Relief 0.2 % drops INSTILL 1 DROP IN EACH EYE ONCE DAILY 02/09 completed Not Available Not Available Not Available Vitals Date Recorded Body height Body mass index (BMI) Body weight Provider Name and Address Organization Details Last Updated DateTime 10/03/2024 148.59 cm 33.9 kg/m2 49558.74 g ASPEN Castro [facility] 10/03/2024 13:22:47 Date Recorded Body height Body mass index (BMI) Body weight Provider Name and Address Organization Details Last Updated DateTime 10/04/2024 148.59 cm 33.9 kg/m2 51760.74 g Kavitha mendes [facility] 10/04/2024 09:53:57 Date Recorded Body height Body mass index (BMI) Body weight Provider Name and Address Organization Details Last Updated DateTime 10/09/2024 148.59 cm 33.9 kg/m2 35542.74 g KEVIN ONEILL [facility] 10/09/2024 15:40:14 Date Recorded Body height Body mass index (BMI) Body weight Provider Name and Address Organization Details Last Updated DateTime 12/15/2024 148.59 cm 33.9 kg/m2 64272.74 g Kavitha mendes [facility] 12/15/2024 14:38:12 Date Recorded Body height Body mass index (BMI) Body weight Provider Name and Address Organization Details Last Updated DateTime 01/23/2025 148.59 cm 33.9 kg/m2 00266.74 g KEVIN ONEILL [facility] 01/23/2025 13:39:07 Social History None recorded. Functional Status None recorded. Mental Status None recorded. Family History Nothing Reported. Medical History Condition Response Allergies/Hayfever N Coronary Artery Disease N Anxiety/Depression N Breathing or lung disorders N Emphysema N Nerve Disorders N Thyroid Problems N COPD N Pacemaker N Anemia N Kidney/Bladder Problems N Vascular Disease N Heart Trouble N Heart Attack (NC) N Gastrointestinal Disease N Cholesterol N Diabetes N Autoimmune disease N Bleeding Disorder N Inflammatory Joint disease Y Orthotics N Arthritis N Seizures/Epilepsy N Blood Clot N AIDS/HIV N Congestive Heart Failure (CHF) N Acid Reflux (GERD) N Cancer N Stroke N Asthma N Circulation Problems N Peripheral Vascular Disease N Sleep Apnea N Hepatitis N Heart Disease N Rheumatoid Arthritis N Arrhythmia N Pulmonary Embolism N Headaches Y Fibromyalgia N Hypertension N Osteoporosis N Gynecological HistoryNo gynecological history recorded. Obstetrics History GPAL:G 0 P 0 0 0 0 Past Encounters Encounter ID Performer Location Encounter Start Date Encounter Closed Date Diagnosis/Indication Diagnosis SNOMED-CT Code Diagnosis ICD10 Code Diagnosis Note [id number] Justine Chávez [place] [address] 02/08/2024 08:36:59 03/02/2024 09:48:31 Ankle pain 500969807 M25.579 Sprain of left ankle [id number] S93.402A [id number] MD Jose Enrique Diego [facility] [address] [place] [address] 03/02/2024 11:54:24 03/29/2024 13:05:49 Sprain of left ankle [id number] 1785101 S93.402D Peroneal t endinitis of left lower limb [id number] 24634 M76.72 [id number] RE[facility] Braun 3rd floor [address] [place] [address] 04/06/2024 10:01:32 05/10/2024 11:46:59 Sprain of left ankle [id number] S93.402A [id number] Pamela Nagy PA-C [facility] 3[address] floor [address] [place] [address] 05/15/2024 12:23:41 06/16/2024 10:21:04 Ankle pain [id number] M25.824 [id number] Christian Aguilera MD [facility] 1st Floor [address] [place] [address] 06/13/2024 08:32:49 07/04/2024 15:16:39 Sprain of left ankle [id number] 8677511 S93.402D Pain of le ft ankle joint 5085627063 1188127 M25.572 Peroneal t endinitis of left lower limb 3298532485 51109 M76.72 Follow-up orthopedic assessment [id number] Z47.89 [id number] Rey Yung MD [facility] [address] [place] [address] 08/03/2024 08:37:46 08/29/2024 10:43:16 Adolescent idiopathic scoliosis of thoracolumbar spine 6079855031 35457 M41.125 Lumbar spondylosis 80959 0009 M47.816 Degenerati on of lumbar intervertebral disc 85074829 M51.285 [id number] Elvira Foley PA-C [facility] 2[address] [place] [address] 09/05/2024 13:33:10 09/26/2024 13:24:35 Trochanteric bursitis of left hip 1011658741 72974 M70.62 PLAN I reviewed imaging and examinatio n findings in detail with the patient. Discussed different treatment options which include oral anti-infla mmatory medication s, physical therapy, home exercise/s tretching program and injections . The patient wishes to proceed with cortisone injection today. Discussed injections can be repeated as often as every 3 months. Recommend formal physical therapy for IT band stretching , abductor strengthen ing, soft tissue modalities and foam rolling. Patient {{agrees d eclines*}} PT at this juncture. Patient will follow up on an as needed basis as symptoms dictate moving forward. All questions and concerns were addressed and answered. [id number] MD JOHNNA Jay [facility] [address] [place] [address] 10/09/2024 15:24:34 10/18/2024 06:42:48 Pain of left shoulder joint [id number] 6104668 M25.202 [id number] MD JOHNNA Diego [facility] [address] [place] [address] 10/03/2024 13:17:20 10/13/2024 09:44:58 Follow-up orthopedic assessment [id number] Z47.89 Peroneal t endinitis of left lower limb 5231782395 86240 M76.72 [id number] MD JOHNNA Reyes [facility] [address] [place] [address] 10/04/2024 09:41:55 10/18/2024 09:47:10 Cervical radiculopathy 65924108 M54.12 Chronic pa in of left upper limb 2055963058 1750213 M25.512 G89.29 Cervical spondylosis 387 134913 M47.220 [id number] REBECA GRAY - [facility] [address] [place] [address] 12/15/2024 14:33:12 12/27/2024 14:04:29 Cervical radiculopathy 38042779 M54.12 [id number] REBECA GRAY - [facility] [address] [place] [address] 01/23/2025 13:32:11 01/29/2025 15:21:38 Cervical radiculopathy 37378594 M54.12 Health Concerns Section Related Observation LastModified by Organization Detai ls LastModified Time None Recorded Concern Status LastModified by Organization Details LastModified Time None Recorded Advance Directives Directive None Recorded Payers Encounter Date Sequence Insurance Name Policy Number Policy Jiménez Covered Member ID Jiménez Member ID Guarantor Name 10/03/2024 1 [place] [employer] Yaitza E Esqilin [id number] Yaitza E Jae 10/03/2024 2 [place] Yaitza E Jae [id number] Yaitza E Jae 10/04/2024 1 [place] [employer] Yaitza E Esqilin [id number] Yaitza E Jae 10/04/2024 2 [place] Yaitza E Jae [id number] Yaitza E Jae 10/09/2024 1 [place] [employer] Yaitza E Esqilin [id number] Yaitza E Jae 10/09/2024 2 [place] Yaitza E Jae [id number] Yaitza E Jae 12/15/2024 1 [place] [employer] Yaitza E Esqilin [id number] Yaitza E Jae 12/15/2024 2 [place] Yaitza E Jae [id number] Yaitza E Jae 01/23/2025 1 [place] [employer] Yaitza E Esqilin [id number] Yaitza E Jae 01/23/2025 2 [place] Yaitza E Jae [id number] Yaitza E Jae Notes Date Note Type Note Provider Name and Address Organization Details Recorded Time 5 text/html Cervical Spine Evaluation with Left Shoulder Pain Subjective:44-year-old female presents for evaluation of cervical spine pain, predominantly affecting the left side. Patient reports chronic neck pain that has been progressively worsening. The pain radiates to the left trapezius, posterior shoulder, and shoulder blade. Patient has a history of previous shoulder surgery for calcium deposits, with partial improvement post-operatively. She also has a significant history of thoracolumbar fusion for scoliosis. Patient reports receiving Botox injections for migraines. She is currently taking oxycodone 10mg for pain management, and was previously advised against gabapentin. Patient notes improvement in symptoms when extending her neck, particularly when reclining. She has a pending orthopedic consultation for shoulder evaluation. Objective: PHYSICAL EXAM:Respiration Rate 14-16Height and Weight per aboveNormal Development without evidence of gross deformitiesOriented to person/place/timeNormal mood and affectNo swelling in bilateral lower extremitiesHead and Neck: Neck was supple without evidence of defects. No atrophy of the neck was visualized. Spine:Examination of the spine demonstrated no crepitation with palpation of the spinous process.The patient was able to flex and extend. No instability of the spine was demonstrated on physical exam. The spine had good strength and tone.No scars noted. No skin or hair changes- Full range of motion of cervical spine- Tenderness noted in trapezius region NEUROLOGICAL EXAMINATION:- Near full strength in bilateral upper extremities with occasional weakness in certain muscle groups secondary to pain- Normal reflexes- Normal sensation SHOULDER EXAMINATION:- Positive impingement sign on left shoulder- Positive Whipple test IMAGING:I independently reviewed 4 view radiographs of the cervical spine obtained today to include AP, lateral, flexion and extension and note:- Mild spondylosis- C5-6 anterior disc space calcification- Preserved cervical lordosis- No abnormal motion with flexion/extension- Visible thoracolumbar fusion instrumentation Assessment and Plan:1. Cervical Spondylosis with Radiculopathy:- Mild degenerative changes on imaging- Will initiate physical therapy for 6-8 weeks- Consider MRI if symptoms persist after conservative treatment- Consider targeted facet injections if no improvement with PT 2. Left Shoulder Impingement Syndrome:- Positive impingement signs- Pending orthopedic evaluation- May consider shoulder injection pending orthopedic consultation 3. Pain Management:- Continue current pain medication regimen. Currently taking oxycodone by another provider- Follow up after completion of physical therapy course 4. Return to clinic in 6-8 weeks after completing physical therapy for reassessment ? Rey Yung MD [address] [place] [address] [address], [place], [address], [facility] 10/04/2024 11:50:02 5 text/html Issues: Neck and recurrent left should pain Status post left shoulder limited glenohumeral debridement of mild upper border subscapularis fraying, subacromial decompression, 07/14/2018Interval History: Annette returns today for re-evaluation of her left shoulder. She is now over 6 years out from surgery. Had a nghia postop course, developing multiple other joint complaints which precluded participation in PT. Per her report, ultimately went on to do well with only intermittent, episodic pain that would come and go. I last saw her for this about 3 years ago, at which point we did a cortisone injection. She reports that this did help for several months. Over the past few months, however, pain has returned once more. As previously, she feels this over the trapezius, superior and posterior shoulder. Reports clicking in the shoulder when laying down. Pain is exacerbated with overhead movements but also with neck range of motion. She is being seen for her neck and will be starting some PT soon.Past family, medical, social history and review of systems have been reviewed and updated on the medical history sheet saved to the patient's chart. A 12-point review of systems is negative x12 except as noted above and/or on the medical history sheet.Examination: Pleasant 44-year-old woman in no acute distress. On exam of the left upper extremity, arthroscopic portal incisions are nicely healed. No evidence for effusion or gross atrophy. Diffuse tenderness to palpation. Active forward elevation 160? ? ?, passive 170. Mildly positive Neer, mildly positive Moy. Passive external rotation 75? ? ? negative ER lag. Internal rotation L2. Mildly positive cross body adduction. 5/5 strength with scaption, IR, ER. Reports pain in all directions. Negative Yergason's. Sensation intact in an axillary distribution. Fires EPL, FPL and intrinsics. Hand is warm and well perfused.Imagin views of the left shoulder left shoulder ordered and obtained at [facility] today were reviewed during the visit. Small recurrent anterior acromial spur. Plenty of space at the a.c. joint (of note, no distal clavicle excision performed during her surgery). No proximal migration humeral head. Resolution of previously noted anterior calcific deposits. Glenohumeral joint space well preservedImpression and Plan: 44-year-old right-hand dominant woman with lupus with recurrent left upper extremity complaints following previous decompression surgery over 6 years ago. Exam today notable for mild irritability of the subacromial space, suggestive of impingement. Some symptoms reproduced with cervical spine range of motion as well.Plan: Offered a cortisone injection today to help with subacromial irritability and also to be used as a diagnostic tool to assess how much of the symptoms are actually coming from the shoulder versus the neck. Dr. Yung, who she has seen for her neck last week, has prescribed PT for the neck. Will ask her therapists to incorporate some scap stabilizer strengthening for the shoulder as well. For occasional aches and pains, the patient can take upof-moh-esasjvp medication such as Tylenol or anti-inflammatories as needed; risks and benefits of medication discussed. Should call with more persistent pain. We will leave follow up open ended at this point. However should symptoms worsen or fail to improve to the patient's satisfaction, she is encouraged to give the office a call to be seen back for further evaluation and management. Carol Stokes MD [address] [place] [address] Suite [facility], [place], [address], [facility] 10/09/2024 16:52:20 5 text/html I am seeing the patient today under the supervision of Dr. Medina who was available but who did not see the patient. HPI: Patient is a pleasant 44-year-old female who presents for evaluation of ongoing neck pain. Patient reports radiating left shoulder pain and paresthesias. Patient denies any significant weakness on the side. She has been recently seen by Dr. Stokes who previously gave her an injection which patient states is not significantly helpful. Patient was previously seen by Dr. Yung in September in regards to her cervical spine. She continues to state that she has been the same no significant change she has numbness in all of the fingers on the left side. Patient has not completed any formal physical therapy she states when going to see our clinic staff she was told they would not take any new patients at that time. She was given home exercise program for her neck and shoulder. She has been taking naproxen. TREATMENTS: As noted in HPI Past family, medical, social history and review of systems has been reviewed, updated and signed by me and is located in the patient? ? ?s chart. Examination: The patient is well appearing, alert and oriented x3 and in no acute distress. Gait is not antalgic. Patient is able to transition from seated to standing position without difficulty.Inspection of the spine reveals no step off, deformity or overlying skin changes or atrophy.The spine is nontender over the paravertebral musculature. Patient is tender over the upper trapezius and SCM.Range of motion of the cervical spine is 80% of normal with flexion and extension pain notedRange of motion of the shoulder is limited on the left side and forward flexion with some discomfort noted.Strength in all upper extremity myotomes 5/5 bilaterally.Sensation intact.Re? e xes normal 2+, brachial triceps, brachioradialis.Lawton' s sign negative. X-rays ordered and obtained by Dr. Yung again independent reviewed by myself in office today 4 views cervical spine with flexion-extension views indicative of degenerative disease most pacifically at the level of C5 with endplate spurring and changes. Patient is also noted to mid thoracic spine to have hardware in place. Impression/Plan: Cervical degenerative disc disease with left-sided radicular symptoms. At this time patient has been under care of a provider for greater than 6 weeks would like to move forward with an MRI of the cervical spine to further evaluate. She has been doing a home exercise program. She was however given an updated physical therapy referral with a list of clinics in the area to see if she can get in anywhere to start some formal treatment. Patient will follow-up with myself in about 4 weeks for MRI review.[facility] speech recognition survey superintendent software was used to create portions of this document. An attempt at proofreading has been made to minimize errors. Please call for corrections. SOHA GUEVARA PA-C [address] [place] [address] [address], [place], [address], [facility] 12/15/2024 15:10:35 5 text/html I am seeing the patient today under the supervision of Dr. Yung who was available but who did not see the patient. HPI: Patient is a pleasant 44-year-old female who presents for evaluation of ongoing neck pain. Patient reports radiating left shoulder pain and paresthesias. Patient presents today for MRI review she states that her symptoms have not changed at all now she is having days that seem to be worse than others. TREATMENTS: As noted in HPI Past family, medical, social history and review of systems has been reviewed, updated and signed by me and is located in the patient? ? ?s chart. Surgical history is significant for previous lumbar spinal fusion she is still continually treated with lumbar injections at [facility]. Examination: The patient is well appearing, alert and oriented x3 and in no acute distress. Gait is not antalgic. Patient is able to transition from seated to standing position without difficulty.Inspection of the spine reveals no step off, deformity or overlying skin changes or atrophy.The spine is nontender over the paravertebral musculature. Patient is tender over the upper trapezius and SCM.Range of motion of the cervical spine is 80% of normal with flexion and extension pain notedRange of motion of the shoulder is limited on the left side and forward flexion with some discomfort noted.Strength in all upper extremity myotomes 5/5 bilaterally.Sensation intact.Re? e xes normal 2+, brachial triceps, brachioradialis.Lawton' s sign negative. X-rays ordered and obtained by Dr. Yung again independent reviewed by myself in office today 4 views cervical spine with flexion-extension views indicative of degenerative disease most pacifically at the level of C5 with endplate spurring and changes. Patient is also noted to mid thoracic spine to have hardware in place. MRI cervical spine dated 12/19/2024 independently reviewed in office todayMinimal posterior disc bulges are present at C3-4, C4-5, C5-6, and C6-7. There is no significant central stenosis or neural foraminal narrowing at any level in the cervical spine. Impression/Plan: Cervical degenerative disc disease with left-sided radicular symptoms. At this time I would recommend continuing with the neck step in conservative management with injection therapy. As she is already an established patient at [facility] a referral was sent over to them for evaluation and treatment for cervical injections. She will follow-up in 2 to 3 months with one of my spine colleagues to assess overall effectiveness of the treatment. All other questions asked and answered. Patient expressed understanding and agreement with plan. [employer] speech recognition survey superintendent software was used to create portions of this document. An attempt at proofreading has been made to minimize errors. Please call for corrections. SOHA GUEVARA PA-C [address] [place] [address], [place], [address], [facility] 01/23/2025 14:10:13 OBGyn Episode No OBEpisode recorded.
== END 2025-02-09 12:41 | disposition home or self-care (01) ==
LOC: HO.HSMS 11:57
PROVIDERS: PCP Internal Medicine; Visit Provider Nurse Practitioner Family
DX: R51.9 Headache, unspecified (principal)
CPT/HCPCS: 99214

== ENCOUNTER → 2025-02-09 11:57 | Outpatient (BNVA) | payer MEDICARE, MEDICAID, SELFPAY | PROVIDERS: PCP Internal Medicine; Visit Provider Nurse Practitioner Family | DX: M32.9 Systemic lupus erythematosus, unspecified (principal); R51.9 Headache, unspecified; G50.9 Disorder of trigeminal nerve, unspecified | CPT/HCPCS: 99212 ==

== ENCOUNTER 2025-02-09 23:20 | Emergency (ER) | payer MEDICARE, MEDICAID, SELFPAY ==
--- NOTE | ~2025-02-09 | CT_ITS ---
CLINICAL HISTORY: facial pain, sent in by her neurologist CT maxillofacial without contrast Comparison: None Findings: No acute fractures. No dislocations. Temporomandibular joints are intact. Paranasal sinuses and mastoid air cells clear. Orbits normal. Visualized intracranial contents are within normal limits. No foreign bodies. IMPRESSION: Unremarkable maxillofacial CT. This document has been electronically signed by: Gene Dodd MD on 02/10/2025 08:29:27
[2025-02-09 23:24] VITALS: BP 148/100; PULSE 85; RESP 17; TEMP 36.6; O2SAT 98; BMI 34.7
[2025-02-09 23:58] LABS: MANUAL DIFF FLAG NO
[2025-02-10 00:01] LABS: Basophils Percent Auto 0.5 % (0-2); Eosinophils Absolute Auto 0.1 X10*3/uL (0.0-0.4); Eosinophils Percent Auto 2.4 % (0-4); Hematocrit 40.4 % (37.0-47.0); Hemoglobin 13.8 g/dl (12.0-16.0); Imm Gran Abs Auto 0.01 X10*3/uL (0.00-0.03); Imm Gran Pct Auto 0.2 % (0.0-0.4); Lymphocytes Absolute Auto 1.7 X10*3/uL (1.2-4.9); Lymphocytes Percent Auto 40.5 % (20-40); Mean Corpuscular HGB Conc 34.2 g/dl (31.0-35.0); Mean Corpuscular Hemoglobin 27.1 pg (27.0-33.0); Mean Corpuscular Volume 79.4 fL (80.0-98.0); Mean Platelet Volume 9.3 fL (9.4-12.3); Monocytes Absolute Auto 0.5 X10*3/uL (0.1-1.2); Monocytes Percent Auto 11.9 % (2-11); Neutrophils Absolute Auto 1.8 x10*3/uL (2.0-8.3); Neutrophils Percent Auto 44.5 % (45-73); Platelet Count 272 X10*3/uL (160-400); Red Blood Count 5.09 X10*6/uL (4.20-5.50); Red Cell Distribution Width 12.4 % (11.0-16.0); White Blood Count 4.1 X10*3/uL (4.8-10.8)
[2025-02-10 00:13] LABS: Alanine Aminotransferase 25 U/L (0-31); Albumin Level 4.1 g/dL (3.5-5.0); Alkaline Phosphatase 119 U/L (39-117); Anion Gap 14 (12-20); Aspartate Amino Transferase 26 U/L (5-31); Bilirubin Total 0.4 mg/dL (0.0-1.0); Blood Urea Nitrogen 13 mg/dL (9-16); Carbon Dioxide 24 mmol/L (22-29); Chloride 108 mmol/L (96-108); Creatinine Clr Calc Pharmacy 113.7; Estimated Glomerular Filt Rate > 60; Glucose Random 133 mg/dL (60-115); Potassium 3.6 mmol/L (3.3-5.1); Sodium 142 mmol/L (135-145); Total Protein 7.5 g/dL (6.5-8.0)
[2025-02-10 03:06] VITALS: BP 119/73; PULSE 79; RESP 15; TEMP 36.5; O2SAT 98
[2025-02-10 06:28] VITALS: BP 115/85; PULSE 73; RESP 16; TEMP 36.8; O2SAT 96
--- NOTE | 2025-02-10 07:17 | ED_ITS ---
HPI - Headache General Chief Complaint: Headache Stated Complaint: neuro recommendation, CT scan Time Seen by Provider: 02/10/25 07:06 Source: patient Mode of arrival: ambulatory Limitations: no limitations History of Present Illness ED Provider: HPI Narrative: 44-year-old female with history of lupus sent in by nurse practitioner from Neurology for MRI of the brain and facial bones, I reviewed neurology notes, patient has been having left-sided headache and some spasming over the face on the left side for the past 9 days, she states she is leaving on Wednesday and they were not able to get MRI to be done on outpatient basis by that time. 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 No sensory deficits upper or lower extremities, she has underwent some medication changes and currently taking steroids. She does have torticollis and a recent cervical spine MRI at [facility]. Related Data Home Medications ?Medication ?Instructions ?Recorded ?Confirmed cyclobenzaprine 10 mg tablet 10 mg PO 06/04/22 02/09/25 fluticasone propionate 50 intranasal 06/04/22 02/09/25 mcg/actuation nasal spray,suspension hydroxychloroquine 200 mg tablet mg PO 06/04/22 02/09/25 hydroxyzine HCl 25 mg tablet 25 mg PO 06/04/22 02/09/25 naproxen 500 mg tablet 500 mg PO 06/04/22 02/09/25 olopatadine 0.2 % eye drops 1 drp ophthalmic (eye) 06/04/22 02/09/25 oxycodone 10 mg tablet 10 mg PO Q12H PRN 06/04/22 02/09/25 Previous Rx's ?Medication ?Instructions ?Recorded riboflavin (vitamin B2) 400 mg 400 mg PO QAM 30 days #30 tabs 05/04/22 tablet onabotulinumtoxinA 200 unit 200 unit IM ONCE 12 weeks #1 ea 01/07/23 solution for injection (Botox) sumatriptan succinate 100 mg tablet 100 mg PO ONCE #9 ea 11/30/23 magnesium oxide 400 mg (241.3 mg 400 mg PO BEDTIME 30 days #30 tabs 11/28/24 magnesium) tablet ondansetron 4 mg disintegrating 4 - 8 mg (1 - 2 x 4 mg) PO Q4H PRN 12/29/24 tablet nausea and vomiting 30 days #20 tabs sumatriptan succinate 100 mg tablet 50 - 100 mg (0.5 - 1 x 100 mg) PO 12/29/24 .COMPLEX PRN migraine headache 30 days #12 tabs cyclobenzaprine 5 mg tablet 5 mg PO BEDTIME #30 tabs 01/01/25 gabapentin 100 mg capsule 100 - 300 mg (1 - 3 x 100 mg) PO 02/02/25 BEDTIME 30 days #90 caps indomethacin 25 mg capsule 25 mg PO TID 7 days #21 caps 02/02/25 carbamazepine 100 mg 100 mg PO BID 30 days #60 tabs 02/09/25 tablet,extended release,12 hr omeprazole 20 mg capsule,delayed 20 mg PO DAILY 30 days #30 caps 02/09/25 release prednisone 10 mg tablet See Rx Instructions PO DAILY 21 02/09/25 days #63 tabs Allergies Allergy/AdvReac Type Severity Reaction Status Date / Time minocycline Allergy Unknown Itching Verified 02/09/25 23:28 sulfamethoxazole Allergy Unknown Itching Verified 02/09/25 23:28 [From Bactrim] timolol Allergy Unknown Itching Verified 02/09/25 23:28 trimethoprim [From Bactrim] Allergy Unknown Itching Verified 02/09/25 23:28 adalimumab [From Humira] Allergy Itching Verified 02/09/25 23:28 infliximab [From Remicade] Allergy Itching Verified 02/09/25 23:28 Review of Systems 2 Constitutional: Constitutional: Reports as per [facility] Past Medical History Medical History Cataract Glaucoma Anemia Arthritis Fibromyalgia Lupus GERD (gastroesophageal reflux disease) Legally blind Congenital rubella Surgical History History of partial hysterectomy Hx of cholecystectomy History of ankle surgery H/O breast biopsy Hx of shoulder surgery History of surgery History of back surgery Hx of appendectomy Family History Family History Father AIDS Legally blind Family/Other Kidney disease Heart disease Mother Diabetes Hypertension Thyroid disease Family/Other Lupus ADHD Bipolar 1 disorder Depression Anxiety Social History Social History Household Members: Children Household Members Other:: 2 kids Alcohol intake: never Patient Tobacco Use Status: Never used Tobacco Smoked in Last 30 Days: No Use of substances other than those prescribed or required for medical reasons: No Advance Directives: No Advance Directives Information Provided: No Do you have a plan to hurt others: No Plan Patient : No Physical Exam 2 Vital Signs: Vital Signs: Last Vital Signs Temp 98.3 F 02/10/25 06:28 Pulse 73 02/10/25 06:28 Resp 16 02/10/25 06:28 BP 115/85 02/10/25 06:28 Pulse Ox 96 02/10/25 06:28 O2 Del Method Room Air 02/10/25 06:28 BMI result Body Mass Index 34.7 Const: Other: * Gen: ?Overall well-appearing patient * HEENT: Pupils reactive bilaterally, no erythema of the tympanic membranes, she has had prior tubes in the ears it is some scarring of the tympanic membranes * Neck: Anterior neck without a tenderness or masses, she has significant suboccipital tenderness on the left side * CV: RRR, no obvious murmurs appreciated * Resp: ?No wheezing rales rhonchi no stridor moving air well * Abd: ?Bowel sounds are present, no tenderness no rebound no rigidity * MSK: FROM, strength 5/5 all extremities * Skin: Warm, dry, intact, * Neuro: ?Alert and oriented x3, moving upper and lower extremities symmetrically, no obvious facial asymmetry noted, was able to see my digits 3 ft away from her face bedside that on the left eye than the right eye that is her baseline, cranial nerves 2-12 intact, I do not obvious facial asymmetry Medications Administered Discontinued Medications Generic Name Dose Route Start Last Admin Trade Name Freq PRN Reason Stop Dose Admin Diazepam 5 mg 02/10/25 08:24 02/10/25 09:09 Diazepam 10 Mg/2 Ml Cartridge IVPUSH 02/10/25 08:25 Not Given STAT STA Medical Decision Making Medical Decision Making [facility] Narrative: 07:22, my clinical suspicion is that patient is presenting with occipital neuralgia, or see if the MR of the brain with and without contrast can be obtained if it is I will try to expedite the patient's care, I think CT facial bones has low utility any diagnosis of sinusitis is a physical exam finding and she does not have any erythema sinuses or purulent drainage, working her up for lupus flares reasonable, temporal arteritis as well I will obtain inflammatory markers, her workup may offer injection to the suboccipital area with lidocaine and she then can follow up with the Neurology practice. Reassuringly she has no neurologic deficits to suspect acute stroke this was not a type of headache or sudden intensity to suspect subarachnoid hemorrhage and she definitely has risk factor for cavernous venous thrombosis so whether MRI or CT venogram is reasonable next step. Disposition to be determined. 09:27 patient we will get her MRI on outpatient basis, her neurology provider is aware, workup has been reassuring from what we have obtained. Further care by her specialist Differential Diagnosis Differential Diagnoses: The differential diagnosis associated with the presentation includes Cavernous venous thrombosis, occipital neuralgia, lupus flare, brain masses, temporal arteritis, hemiplegic migraine Admission/Observation Consideration of admission/observation: Escalation of care including admission/observation considered Lab Data 02/09/25 23:52 02/09/25 23:52 Labs: Lab Results 02/09/25 02/10/25 Range/Units 23:52 07:46 WBC 4.1 L (4.8-10.8) X10*3/uL RBC 5.09 (4.20-5.50) X10*6/uL Hgb 13.8 (12.0-16.0) g/dl Hct 40.4 (37.0-47.0) % MCV 79.4 L (80.0-98.0) fL MCH 27.1 (27.0-33.0) pg MCHC 34.2 (31.0-35.0) g/dl RDW 12.4 (11.0-16.0) % Plt Count 272 (160-400) X10*3/uL MPV 9.3 L (9.4-12.3) fL Immature Gran % (Auto) 0.2 (0.0-0.4) % Neut % (Auto) 44.5 L (45-73) % Lymph % (Auto) 40.5 H (20-40) % [place] % (Auto) 11.9 H (2-11) % Eos % (Auto) 2.4 (0-4) % Baso % (Auto) 0.5 (0-2) % Lymph # (Auto) 1.7 (1.2-4.9) X10*3/uL [place] # (Auto) 0.5 (0.1-1.2) X10*3/uL Eos # (Auto) 0.1 (0.0-0.4) X10*3/uL Baso # (Auto) 0.0 (0.0-0.2) X10*3/uL Abs Immat Gran (auto) 0.01 (0.00-0.03) X10*3/uL Absolute Neuts (auto) 1.8 L (2.0-8.3) x10*3/uL Absolute Nucleated RBC 0.000 (0.0-0.012) X10*3/uL Nucleated RBC % (auto) 0.0 (0.0-0.2) /100WBC ESR 17 (0-20) MM/HR Sodium 142 (135-145) mmol/L Potassium 3.6 (3.3-5.1) mmol/L Chloride 108 (96-108) mmol/L Carbon Dioxide 24 (22-29) mmol/L Anion Gap 14 (12-20) BUN 13 (9-16) mg/dL Creatinine 0.55 (0.5-1.4) mg/dL Estim Creat Clear Calc 113.7 Estimated GFR > 60 Random Glucose 133 H (60-115) mg/dL Calcium 9.0 (8.4-10.2) mg/dL Total Bilirubin 0.4 (0.0-1.0) mg/dL AST 26 (5-31) U/L ALT 25 (0-31) U/L Alkaline Phosphatase 119 H (39-117) U/L C-Reactive Protein 1.76 H (< or = 0.50) mg/dL Total Protein 7.5 (6.5-8.0) g/dL Albumin 4.1 (3.5-5.0) g/dL Radiology Impression Discussion of test interpretation with radiology: I have reviewed the radiologist's reading. (CT face without acute findings) Discharge Plan Discharge Clinical Impression: Lupus, Cervico-occipital neuralgia of left side Patient Disposition: Home, Self-Care Additional Instructions: Your blood work is reassuring, CT of the face did not reveal any evidence for sinusitis or any other infectious etiology, or neurology providers aware that you are not getting MRI in the emergency department, you will get it done later on today, you did receive medication for spasm, I believe your presenting with cervical occipital neuralgia, I will leave it up to your specialist to manage ER further care and he other issues concerns come back to emergency department Prescriptions: No Action riboflavin (vitamin B2) 400 mg tablet 400 mg PO QAM 30 Days Qty: 30 6RF Botox 200 unit recon soln 200 unit IM ONCE 84 Days Qty: 1 3RF Rx Instructions: Inject up to 200 units across left splenius, levator, and semispinalis muscles sumatriptan succinate 100 mg tablet 100 mg PO ONCE Qty: 9 7RF magnesium oxide 400 mg (241.3 mg magnesium) tablet 400 mg PO BEDTIME 30 Days Qty: 30 6RF ondansetron 4 mg tablet,disintegrating 4 - 8 mg PO Q4H PRN (Reason: nausea and vomiting) 30 Days Qty: 20 1RF sumatriptan succinate 100 mg tablet 50 - 100 mg PO .COMPLEX PRN (Reason: migraine headache) 30 Days Qty: 12 6RF Rx Instructions: 50 - 100 mg orally at onset of headache, may repeat in 2 hrs PRN; max 2 tabs per day or 4 tabs/week (may take with Ibuprofen) indomethacin 25 mg capsule 25 mg PO TID 7 Days Qty: 21 0RF Rx Instructions: administer with food or milk. Hold naproxen while taking indomethacin. gabapentin 100 mg capsule 100 - 300 mg PO BEDTIME 30 Days Qty: 90 3RF oxycodone 10 mg tablet 10 mg PO Q12H PRN olopatadine 0.2 % drops 1 drp ophthalmic (eye) fluticasone propionate 50 mcg/actuation spray,suspension intranasal hydroxyzine HCl 25 mg tablet 25 mg PO hydroxychloroquine 200 mg tablet PO cyclobenzaprine 10 mg tablet 10 mg PO naproxen 500 mg tablet 500 mg PO cyclobenzaprine 5 mg tablet 5 mg PO BEDTIME Qty: 30 1RF carbamazepine 100 mg tablet extended release 12 hr 100 mg PO BID 30 Days Qty: 60 1RF omeprazole 20 mg capsule,delayed release(DR/EC) 20 mg PO DAILY 30 Days Qty: 30 0RF Rx Instructions: For GI protection while on prednisone prednisone 10 mg tablet See Rx Instructions PO DAILY 21 Days Qty: 63 0RF Rx Instructions: 6 tabs x's 3 days, 5 tabs x's 3 days, 4 tabs x's 3 days, 3 tabs x's 3 days, 2 tabs x's 3 days, 1 tab x's 3 days, then stop. orally daily; Print Language: Turkish
[2025-02-10 08:03] LABS: C Reactive Protein 1.76 mg/dL (< or = 0.50)
[2025-02-10 08:33] LABS: Erythrocyte Sedimentation Rate 17 MM/HR (0-20)
[2025-02-10] MEDS: diazePAM 2 MG TABLET PO (09:28)
[2025-02-10 09:29] VITALS: BP 127/78; PULSE 77; RESP 18; TEMP 36.8; O2SAT 99
[2025-02-10 09:33] VITALS: BP 127/78; PULSE 77; RESP 18; TEMP 36.8; O2SAT 99
== END 2025-02-10 09:34 | disposition home or self-care (01) ==
PROVIDERS: Emergency Provider Emergency Medicine; PCP Internal Medicine
DX: M32.9 Systemic lupus erythematosus, unspecified (principal); M54.81 Occipital neuralgia; R51.9 Headache, unspecified; Z79.899 Other long term (current) drug therapy
CPT/HCPCS: 36415; 70486; 70553; 80053; 85025; 85652; 86140; 99284; A9585

== ENCOUNTER → 2025-02-10 07:16 | Outpatient (BNV) | payer MEDICARE, MEDICAID, SELFPAY | PROVIDERS: Emergency Provider Emergency Medicine; PCP Internal Medicine; Visit Provider Specialist | DX: R51.9 Headache, unspecified (principal); G50.1 Atypical facial pain | CPT/HCPCS: 70486 ==

== ENCOUNTER 2025-02-10 16:38 | Outpatient (REF) | payer MEDICARE, MEDICAID, SELFPAY ==
--- NOTE | ~2025-02-10 | MR_ITS ---
CLINICAL HISTORY: R51.9 - Headache, unspecified MR of the brain with and without contrast Comparison: CT/SR - CT FACIAL [facility]ONES WO IV CON - 02/10/25 07:50 EDT Findings: No acute infarction, hemorrhage, mass-effect or herniation. No abnormal enhancement. No hydrocephalus. Signal intensity is within normal limits for patient's age. No extra-axial fluid collection or mass. Unremarkable sella. Intact flow voids. No acute orbital pathology. Absent left lens. Clear paranasal sinuses and mastoid air cells. Unremarkable osseous structures. Impression: No acute findings. This document has been electronically signed by: Angie Johnston MD on 02/10/2025 17:33:40
[2025-02-10] MEDS: gadobutroL 7.5 ML VIAL IVPUSH (17:14)
== END 2025-02-10 16:39 | disposition home or self-care (01) ==
LOC: HO.MRI 16:38
PROVIDERS: Visit Provider Nurse Practitioner Family
DX: R51.9 Headache, unspecified (principal); M32.9 Systemic lupus erythematosus, unspecified
CPT/HCPCS: 70553; A9585

== ENCOUNTER 2025-02-26 07:43 | Outpatient (AMB) | payer MEDICARE, MEDICAID, SELFPAY ==
[2025-02-26 07:43] VITALS: BMI 34.5
--- NOTE | 2025-02-26 07:43 | MHC.OFFVIS ---
Vital Signs 02/26/25 07:43 Height 4 ft 10 in Weight 165 lb BMI 34.5 Intake Visit Reasons: follow up OK per [facility] Intake Note: Patient presents follow up for headaches. Headaches are better but still getting pain on left side of head/face. Allergies minocycline Allergy (Unknown, Verified 02/26/25 07:43) Itching sulfamethoxazole [From Bactrim] Allergy (Unknown, Verified 02/26/25 07:43) Itching timolol Allergy (Unknown, Verified 02/26/25 07:43) Itching trimethoprim [From Bactrim] Allergy (Unknown, Verified 02/26/25 07:43) Itching adalimumab [From Humira] Allergy (Verified 02/26/25 07:43) Itching infliximab [From Remicade] Allergy (Verified 02/26/25 07:43) Itching Medication List - Last Reconciled 02/26/25 by VITA Huertas carbamazepine ER 100 mg PO BID 30 days cyclobenzaprine 10 mg PO cyclobenzaprine 5 mg PO BEDTIME fluticasone propionate 50 mcg/actuation intranasal gabapentin 100 - 300 mg (1 - 3 x 100 mg) PO BEDTIME 30 days hydroxychloroquine mg PO hydroxyzine HCl 25 mg PO indomethacin 25 mg PO TID 7 days magnesium oxide 400 mg PO BEDTIME 30 days naproxen 500 mg PO olopatadine 0.2% 1 drp ophthalmic (eye) omeprazole 20 mg PO DAILY 30 days onabotulinumtoxinA (Botox) 200 units IM ONCE 12 weeks ondansetron 4 - 8 mg (1 - 2 x 4 mg) PO Q4H PRN 30 days oxycodone 10 mg PO Q12H PRN prednisone 6 tabs x's 3 days, 5 tabs x's 3 days, 4 tabs x's 3 days, 3 tabs x's 3 days, 2 tabs x's 3 days, 1 tab x's 3 days, then stop. orally daily; 21 days riboflavin (vitamin B2) 400 mg PO QAM 30 days sumatriptan succinate 50 - 100 mg orally at onset of headache, may repeat in 2 hrs PRN; max 2 tabs per day or 4 tabs/week (may take with Ibuprofen) 30 days sumatriptan succinate 100 mg PO ONCE HPI Comments Details: 44-year-old female presents for f/u televisit for new onset left-sided headache. Interval brain MRI with and without contrast was WNL. Interval face CT- WNL. Patient states the less sided temporal headache began to subside in intensity after starting the prednisone taper. She completed the entire prednisone taper approximately 1 week ago. However, she does continue to have a constant look temporal region discomfort, which exacerbates to a severe sharp pain lasting approximately 1 minute whenever she yawns. She does not believe that she started the carbamazepine yet. She does continue to take her cyclobenzaprine as needed. She is still scheduled to have C-spine injection trial through [facility]. 02/09/2025, Previous HPI: 44-year-old female presents for urgent visit for new onset left-sided headache. Patient called the service 1 week ago, reporting new onset left-sided headache which started couple of days before, which is different from her baseline migraine and typical left-sided neck pain. She stated pain was predominantly in the left postauricular occipital region and left temporal region and left eye and not associated with photophobia, phonophobia or nausea or vomiting.. At the time she denied left ear pain, fevers, preceding accidents/injuries. She reports in the weeks prior, she had undergone right sided dental work, which required at least 2 courses of antibiotics. Patient had also underwent recent C-spine MRI, ordered by [facility], and was being scheduled for cervical injection to treat left-sided cervicalgia radiating into the left upper extremity. That point, we submitted orders for indomethacin and gabapentin, unfortunately neither of these was effective. Patient then called service back, reporting new onset of left ear pain along with continuation of the left sided headache. Patient was advised to go to urgent care or ER, to rule out infectious process. Patient did go to [facility], labs were notable for slightly low magnesium, and exam including ear exam was reassuring, and they felt headache was likely secondary to chronic cervicalgia. No head imaging was done. Patient states she was restarted on magnesium. Patient again reached out to us. She continues to have the left-sided headache, still left lateral occipital region and left temporal region.. The pain is constant, however touching it or talking or opening her mouth exacerbates pain. When the pain is exacerbated it is this brief sudden stopped per in her tracks sharp pain. 12/19/2024 C-spine MRI without contrast at [facility]: FINDINGS BY LEVEL: Minimal posterior disc bulges are present at C3-4, C4-5, C5-6, and C6-7. However, there is no significant central stenosis or neural foraminal narrowing at any level in the cervical spine. IMPRESSION: Mild degenerative changes of the cervical spine, but no significant stenosis or cord/nerve root compression at any level. Previous C-spine MRI with and without contrast on 06/10/2022 at [facility]: IMPRESSION: 1. Normal appearance to the cervical spinal cord. No spinal cord lesions or abnormal enhancement and no abnormal leptomeningeal enhancement. Note that the upper thoracic region is partially obscured by metallic hardware artifact. 2. Slight lordotic reversal centered at C3-C4 with a small central disc protrusion at this level without cord impingement or significant canal stenosis. 3. Multilevel facet arthropathy, most apparent on the left at C3-C4 with mild left-sided neural foraminal narrowing at this level. [facility] Medical History Cataract Glaucoma Anemia Arthritis Fibromyalgia Lupus GERD (gastroesophageal reflux disease) Legally blind Congenital rubella Surgical History History of partial hysterectomy Hx of cholecystectomy History of ankle surgery H/O breast biopsy Hx of shoulder surgery History of surgery History of back surgery Hx of appendectomy Family History Father AIDS Legally blind Family/Other Kidney disease Heart disease Mother Diabetes Hypertension Thyroid disease Family/Other Lupus ADHD Bipolar 1 disorder Depression Anxiety Social History Household Members: Children Household Members Other:: 2 kids Alcohol intake: never Patient Tobacco Use Status: Never used Tobacco Physical Exam Vital Signs: BMI result Body Mass Index 34.5 Const General: cooperative and no acute distress Orientation/consciousness: patient oriented x3 Resp Effort & Inspection: normal respiratory effort and able to speak in complete sentences Neuro General: patient oriented x3 Cognition (Neuro): normal cognition Psych Appearance: grossly normal Mental Status: mental status grossly normal Speech and movement: Normal speech and movement present Affect: normal affect Attitude: cooperative Telehealth Telehealth Telehealth Platform: [facility] Location of provider rendering services: practice address Location of patient: address on file Patient Identification confirmed using: Name, : Yes Telehealth method: video Patient verbally consented to treatment: Yes Patient verbally consented to billing insurance company: Yes Patient informed of any privacy concerns related to visit: Yes Minutes spent on Phone/Video with Pt.: 12 Assessment & Plan Assessment & Plan (1) Left-sided headache: Code(s): R51.9 - Headache, unspecified Category: Medical (2) New onset headache: Code(s): R51.9 - Headache, unspecified Category: Medical (3) Disorder of left trigeminal nerve: Code(s): G50.9 - Disorder of trigeminal nerve, unspecified Category: Medical Plan Stop indomethacin and gabapentin orders- ineffective Continue magnesium 400 mg daily at bedtime Patient has completed prednisone taper with good effect. Again start carbamazepine ER 100 mg twice a day. If carbamazepine well tolerated, recheck CBC and CMP in 1 month- advised to do this when she request her carbamazepine refill. Previous trials: Low-dose indomethacin and gabapentin-ineffective. Reviewed CT face sinus and MRI brain with and without contrast-unremarkable. Patient advised to undergo the following workup, to assess for underlying secondary etiologies of new onset left-sided side locked headache associated with facial asymmetry, in setting of autoimmune disorder lupus. And although patient has chronic cervicalgia in spasmodic torticollis, this is unlikely to be the underlying etiology, as cervical exam does not elicit or exacerbate the left sided headache symptoms, rather only her baseline cervicalgia symptoms: MRA brain without contrast MRV brain with and without contrast Will follow-up upon review of above and patient to follow-up in clinic in 2 months or sooner prn. Orders: Orders MR angio head wo con Today G50.9 - Disorder of trigeminal nerve, unspecified, R51.9 - Headache, unspecified MR venography head wo/w con Today G50.9 - Disorder of trigeminal nerve, unspecified, R51.9 - Headache, unspecified Medications: Refilled carbamazepine ER 100 mg PO BID 30 days 60 tabs 1RF G50.9 - Disorder of trigeminal nerve, unspecified, R51.9 - Headache, unspecified Discontinued gabapentin Discontinued Reason: Doctor's Order 100 - 300 mg (1 - 3 x 100 mg) PO BEDTIME 30 days 90 caps 3RF omeprazole For GI protection while on prednisone Discontinued Reason: Patient Completed Course 20 mg PO DAILY 30 days 30 caps 0RF prednisone Discontinued Reason: Patient Completed Course 6 tabs x's 3 days, 5 tabs x's 3 days, 4 tabs x's 3 days, 3 tabs x's 3 days, 2 tabs x's 3 days, 1 tab x's 3 days, then stop. orally daily; 21 days 63 tabs 0RF G50.9 - Disorder of trigeminal nerve, unspecified, R51.9 - Headache, unspecified Coding Level of Care Code Tele Est Pt Level 4 (59095) Diagnoses Left-sided headache R51.9 New onset headache R51.9 Disorder of left trigeminal nerve G50.9
== END 2025-02-26 11:13 | disposition home or self-care (01) ==
LOC: HO.HSMS 07:43
PROVIDERS: PCP Internal Medicine; Visit Provider Nurse Practitioner Family
DX: R51.9 Headache, unspecified (principal); G50.9 Disorder of trigeminal nerve, unspecified
CPT/HCPCS: 99214

== ENCOUNTER → 2025-02-26 07:43 | Outpatient (BNVA) | payer MEDICARE, MEDICAID, SELFPAY | PROVIDERS: PCP Internal Medicine; Visit Provider Nurse Practitioner Family ==

== ENCOUNTER 2025-03-02 13:21 | Outpatient (REF) | payer MEDICARE, MEDICAID, SELFPAY ==
--- OUTSIDE RECORDS SUMMARY | 2025-03-02 13:39 | XMS_ITS | Data Portability ---
Author Organization [facility], [facility] Address [address] [place] [address] Care Team Providers Care Survey Crew Chief Name Role Phone WESLEY BANKS Primary Care Provider Assessment Encounter Date Assessment Date Assessment LastModified [...] spine fusion surgery at age [address] [facility] and has recently seen Dr. Yung [...] medical problems and is seen by an water engineer in [place]. She is a nonsmoker and is not [...] RxCervica l Stabiliza tion Program 2024 025 [email or web address] Not available 12/27/2024 14:04:29 physical therapist referral [...] contrast for cervical radiculop athy 2024 025 [email or web address] [facility] ([facility]), [address], [place], [address], 12/27/2024 14:04:29 XR, shoulder, 2 or more view - L shoulder 4 view rm 215 [email or web address] [facility], [address], [address], [place], [address], 10/18/2024 06:42:48 XR, cervical spine, 4 or 5 view - 327 4v cspine 2024 025 [email or web address] [address] [facility] Office, [address], [address], [place], [address], 10/04/2024 10:18:25 Medication Orders None recorded. Patient TargetsNo targets recorded. Patient InstructionsNo instructions recorded. Reason for Referral Physical Therapist Referral for Cervical radiculopathy Evaluate & RxCervical Stabilization Program Referring Physician: Rey Yung, Orthopedic Surgery, Encounter Date: 10/04/2024 Physical Therapist Referral for Pain of left shoulder joint DIAGNOSIS: Left shoulder pipwsduekhu1x/week x 6 weeksTherapy Start:Evaluate and TreatGoal: - [...] (PROC ) No observ ation record ed. [facility] ([facility]) [address] [facility] [address] [place], [address], 09/26/2024 16:37:39 10/04/19 25 10/04/2024 XR, cervi anyi spine , 4 or 5 view http:/ [email or web address] ?Encry pted=s hAaTro YD8dLq bEUv6g %2BXZw aYqtaq 0bqfl% 2Fg9IQ a4ajBk vP9nXo QUaueC m3YtLR FvZlgJ JJ8mAn HZtai3 9u6934 AC0Kqb 3mAVae lKiQtr MwF INTERFACE [facility] [address], [place], [address], 10/04/2024 09:59:59 10/04/19 25 10/04/2024 XR, cervi anyi spine , 4 or 5 view http:/ [email or web address] ?Encry pted=s hAaTro YD8dLq bEUv6g %2BXZw aYqtaq 0bqfl% 2Fg9IQ a4ajBk vP9nXo QUaueC m3YtLR FvZlgJ JJ8mAn HZtai3 8n2715 AC0Kqb 3mAVae lKiQtr MwF INTERFACE [facility] [address], [place], [address], 10/04/2024 10:00:01 10/09/19 25 10/09/2024 XR, shoul harsh, 2 or more view http:/ [email or web address] ?Encry pted=s hAaTro YD8dLq bEUv6g %2BXZw aYqtaq 0bqfl% 2Fg9IQ a4ajBk vP9nXo QUaueC m3YtLR FvZlgJ JJ8mAn HZtai3 6p1054 AC0Kqb 3yFUaS mKiQtr MwF INTERFACE [facility] [address], [place], [address], 10/09/2024 15:51:49 10/09/19 25 10/09/2024 XR, kira house, 2 or more view http:/ [email or web address] ?Encry pted=s hAaTro YD8dLq bEUv6g %2BXZw aYqtaq 0bqfl% 2Fg9IQ a4ajBk vP9nXo QUaueC m3YtLR FvZlgJ JJ8mAn HZtai3 9l1647 AC0Kqb 3yFUaS mKiQtr MwF INTERFACE [facility] [address], [place], [address], 10/09/2024 15:51:51 12/22/19 25 12/19/2024 MRI, cervi anyi spine , w/o contr ast [facility] Access ion Number : [id number] Patien t Name: Truong espino, Class Centrala [employer] Record Number : [id number] Date of : 1979 Date of Exam: 2024 Referr ing Physic amberly: Soha [facility] [address] [facility], [place] [address] Exam: MR Cervic al Spine (C-) CPT 82251 Room Descri ption: Mariposa Siem Espr 1.5 MR Cervic al Spine (C-) CPT 65413 INDICA TION: Radicu lopath y, cervic al region . TECHNI QUE: Multip lanar, multis equenc e MRI of the cervic al spine was perfor med withou t intrav enous contra st. COMPAR PRSETON: None. FINDIN GS: ALIGNM ENT, VERTEB LIZ, [...] l scatte red loss of disc space. GRINDER SET UP OPERATOR JIG IOR FOSSA AND CORD: Visual ized online project manager ior fossa is normal . The cervic al cord is normal in signal and calibe r. PARASP INAL TISSUE S: Soft tissue s of the neck are unrema rkable . Major cervic al flow voids are presen t. FINDIN GS BY LEVEL: Minima l online project manager ior disc bulges are presen t at [...] level. Electr onical ly Signed By: Ene shah[address] [facility] ([facility]) [address], [place], [address], 12/25/2024 13:06:45 12/22/19 25 12/19/2024 MRI, cervi anyi spine , w/o contr ast No observ ation record ed. [facility] [address], [place], [address], 12/25/2024 13:08:38 Result Notes Documentation Provider Name and Address Organization Details Recorded Time Xr, Cervical Spine, 4 Or 5 View : [email or web address]? Encrypted=vjYtPinUW8cDjvA Uv6g%7MBNsfTnfnv8srjg%2Fg 9HWv0wsFivR2hZvBMbqaIi3De GBIqFokDRO4tLuDHgzi10l160 5UP6Mxh5lAKhtkZcTnxPfX Not Available [facility] 10/04/2024 10:00:00 Xr, Cervical Spine, 4 Or 5 View : [email or web address] Encrypted=wrXnDwxRB5xJhpA Uv6g%2DFMgyVvcky8kdgt%2Fg 2BFk1zlSmjS3eJrUEnvgKy9Rk IOIxPsuTYO9zDaXNxee98g044 5QF9Jmz9bMSineZrQyxApX Not Available [facility] 10/04/2024 10:00:03 Xr, Shoulder, 2 Or More View : [email or web address]? Encrypted=eqJjTxgGH6kZvrM Uv6g%8XZIfgCrzio5rapy%2Fg 7VOb2aqGblL4vSbXIaspTe1Hv KNQxEmcGXY0gTyMLite68i378 4OI6Hkq0pLEvRxZpLysLtT Not Available [facility] 10/09/2024 15:51:50 Xr, Shoulder, 2 Or More View : [email or web address] Encrypted=sdIdBcqHK4qGipJ Uv6g%7PYKwtFnwzl1rzqn%2Fg 1UPd5xzXobD0dZcEJvkgLw3Dv MJMxKlgSTX4eEjHNwwb89z360 4QN3Xfm8yIHcFmDoOfhMeY Not Available [facility] 10/09/2024 15:51:52 Mri, Cervical Spine, W/o Contrast : [facility] Accession Number: [id number] Patient Name: Annette Rowe Date of : 1980 Date of Exam: 12-19-2024 Referring Physician: Soha Guevara [facility] [address] [place], [place] [address] Exam: MR Cervical Spine (C-) CPT 80875 Room Description: [facility] 1.5 MR Cervical Spine (C-) CPT 64852 INDICATION: Radiculopathy, cervical region. TECHNIQUE: Multiplanar, multisequence MRI of the cervical spine was performed without intravenous contrast. COMPARISON: None. FINDINGS: ALIGNMENT, VERTEBRAE, MARROW, AND DISCS: There is straightening of the typical cervical lordosis without significant subluxation. Upper thoracic spine is partially obscured by susceptibility artifact from extensive fusion hardware. Cervical vertebral body heights are preserved. There is no significant marrow signal abnormality. There is minimal scattered loss of disc space. POSTERIOR FOSSA AND CORD: Visualized posterior fossa is normal. The cervical cord is normal in signal and caliber. PARASPINAL TISSUES: Soft tissues of the neck are unremarkable. Major cervical flow voids are present. FINDINGS BY LEVEL: Minimal posterior disc bulges are present at C3-4, C4-5, C5-6, and C6-7. However, there is no significant central stenosis or neural foraminal narrowing at any level in the cervical spine. IMPRESSION: Mild degenerative changes of the cervical spine, but no significant stenosis or cord/nerve root compression at any level. Electronically Signed By: Rosemary GUEVARA PA-C [address], [place], [address], [facility] 12/25/2024 13:06:45 Problems Name Problem SNOMED Code Status Onset Date Resolution Date Notes Provider Name and Address Organization Details Recorded Time Degenerat ion of lumbar intervert ebral disc 11409763 Active 2023 Rey Yung MD [address], [place], [address] , [facility] 4 09:28:24 Lumbar spondylos is 262499980 Active 2023 LARY wiggins [facility] 4 08:50:11 Adolescen t idiopathi c scoliosis of thoracolu mbar spine 179345577187 109 Active 2023 Rey Yung MD [address], [place], [address] , [facility] 4 09:28:27 Trochante yefri bursitis of left hip 775151773188 103 Active 2023 Elvira Foley PA-C [address], [place], [address] , [facility] 4 13:57:29 Cervical spondylos is 609460737 Active 2024 Rey Yung MD [address], [place], [address] , [facility] 5 11:49:28 Cervical radiculop athy 17520414 Active 2024 SOHA GUEVARA PA-C [address], [place], [address] , [facility] 5 14:09:56 Calcific tendiniti s of left shoulder 513140608164 108 Active 2017 Problem Code: M75.32; Problem Code Type: ICD-10; Status: 'A'; Not Available [facility] 4 11:57:39 Problem Notes None recorded. Procedures Surgical History Date Name Laterality Status Provider Name and Address Organization Details Recorded Time 5 Sports Shoulder completed Carol Stokes MD [address], [place], [address], [facility] 10/09/2024 16:22:34 4 Hip Kenalog 1cc Injection, L/R completed Elvira Foley PA-C [address], [place], [address], [facility] 09/05/2024 13:57:01 8 procedure on shoulder joint completed KEVIN ONEILL [facility] 10/09/2024 15:42:16 Imaging Results None recorded. Procedure Notes None recorded. Medical Equipment None Reported. Allergies Allergen ID Allergen Name Allergen Category Reaction Reaction Severity Criticality Documentation Date Start Date Code Code System Note Provider Name and Address Organization Details Recorded Time 752394 minocycli ne medicatio n Not available Not available Not available 05/15/2024 6980 RxNorm Jessie wiggins [facility] 4 12:35:32 897761 timolol medicatio n Not available Not available Not available 05/15/2024 93407 RxNorm Jessie wiggins [facility] 4 12:35:52 71218 Bactrim medicatio n tachycard ia Not available Not available 11/22/20232017 78859 9 RxNorm Not Available [facility] 14:47:18 59364 Humira medicatio n tachycard ia Not available Not available 11/22/20232017 56505 4 RxNorm Not Available [facility] 14:47:18 Medications Name Sig Start Date Stop [...] Updated DateTime 10/03/2024 148.59 cm 33.9 kg/m2 59758.74 g ASPEN Castro [facility] 10/03/2024 13:22:47 Date Recorded Body height Body mass index (BMI) Body weight Provider Name and Address Organization Details Last Updated DateTime 10/04/2024 148.59 cm 33.9 kg/m2 79914.74 g Kavitha mendes [facility] 10/04/2024 09:53:57 Date Recorded Body height Body mass index (BMI) Body weight Provider Name and Address Organization Details Last Updated DateTime 10/09/2024 148.59 cm 33.9 kg/m2 23873.74 g KEVIN ONEILL [facility] 10/09/2024 15:40:14 Date Recorded Body height Body mass index (BMI) Body weight Provider Name and Address Organization Details Last Updated DateTime 12/15/2024 148.59 cm 33.9 kg/m2 70390.74 g Kavitha mendes [facility] 12/15/2024 14:38:12 Date Recorded Body height Body mass index (BMI) Body weight Provider Name and Address Organization Details Last Updated DateTime 01/23/2025 148.59 cm 33.9 kg/m2 79419.74 eddy ONEILL [place] [facility] 01/23/2025 13:39:07 Social History None recorded. Functional Status None recorded. Mental Status None recorded. Family History Nothing Reported. Medical History Condition Response Allergies/Hayfever N Coronary Artery Disease N Anxiety/Depression N Breathing or lung disorders N Emphysema N Nerve Disorders N Thyroid Problems N COPD N Pacemaker N Anemia N Kidney/Bladder Problems N Vascular Disease N Heart Trouble N Heart Attack (CT) N Gastrointestinal Disease N Cholesterol N Diabetes N Autoimmune disease N Inflammatory Joint disease Y Bleeding Disorder N Orthotics N Arthritis N Seizures/Epilepsy N Blood [...] SNOMED-CT Code Diagnosis ICD10 Code Diagnosis Note [id number] Justine Chávez [place] [address] 02/08/2024 08:36:59 03/02/2024 09:48:31 Ankle pain 979270590 M25.579 Sprain of left ankle 683 5891101 5728632 S93.402A [id number] Christian Aguilera MD [facility] [address] [place] [address] 03/02/2024 11:54:24 03/29/2024 13:05:49 Sprain of left ankle 3217837536 2854553 S93.402D Peroneal t endinitis of left lower limb 0690955074 14886 M76.72 [id number] REBECA Braun [address] [place] [address] 04/06/2024 10:01:32 05/10/2024 11:46:59 Sprain of left ankle 2703557044 0164247 S93.402A [id number] REBECA Braun 3[address] floor [address] [place] [address] 05/15/2024 12:23:41 06/16/2024 10:21:04 Ankle pain 836304143 M25.652 [id number] MD Lilibeth Diegodulce [address] [place] [address] 06/13/2024 08:32:49 07/04/2024 15:16:39 Sprain of left ankle 5574529546 5804251 S93.402D Pain of le ft ankle joint 0326298592 9699559 M25.572 Peroneal t endinitis of left lower limb 5712995228 30675 M76.72 Follow-up orthopedic assessment 094337273 Z47.89 [id number] Rey Yung MD [facility] [address] [place] [address] 08/03/2024 08:37:46 08/29/2024 10:43:16 Adolescent idiopathic scoliosis of thoracolumbar spine 4301535259 18649 M41.125 Lumbar spondylosis 11774 0009 M47.816 Degenerati on of lumbar intervertebral disc 24710980 M51.830 [id number] REBECA Santiago [address] [place] [address] 09/05/2024 13:33:10 09/26/2024 13:24:35 Trochanteric bursitis of left hip 5377189184 02448 M70.62 PLAN I reviewed imaging and examinatio [...] soft tissue modalities and foam rolling. Patient declinesPT at this juncture. Patient will follow up on an as needed basis as symptoms dictate moving forward. All questions and concerns were addressed and answered. [id number] MD JOHNNA Jay - [address] [place] [address] 10/09/2024 15:24:34 10/18/2024 06:42:48 Pain of left shoulder joint 3841094635 1873714 M25.851 [id number] MD JOHNNA Diego - [address] [place] [address] 10/03/2024 13:17:20 10/13/2024 09:44:58 Follow-up orthopedic assessment 886047736 Z47.89 Peroneal t endinitis of left lower limb 4567874576 27767 M76.72 [id number] MD JOHNNA Reyes - [facility] [address] [place] [address] 10/04/2024 09:41:55 10/18/2024 09:47:10 Cervical radiculopathy 22180651 M54.12 Chronic pa in of left upper limb 4128736368 3267267 M25.512 G89.29 Cervical spondylosis 387 648617 M47.865 [id number] REBECA GRAY - [address] [place] [address] 12/15/2024 14:33:12 12/27/2024 14:04:29 Cervical radiculopathy 05206380 M54.12 [id number] REBECA GRAY - [address] [place] [address] 01/23/2025 13:32:11 01/29/2025 15:21:38 Cervical radiculopathy 94425279 M54.12 Health Concerns Section Related Observation LastModified by Organization Detai ls LastModified Time None Recorded Concern Status LastModified by Organization Details LastModified Time None Recorded Advance Directives Directive None Recorded Payers Insurance Date Sequence Insurance Name Policy Number Policy Jiménez Covered Member ID Jiménez Member ID Guarantor Name 01/20/2025 1 [place] [employer] Annette Topete Esqilin [id number] Yapal Topete Jae 01/23/2025 2 [place] Yaitza E Jae [id number] Yaitza E Jae 01/20/2025 [place] - SPECIALITY CLAIMS (MEDICARE DME REGION A) Annette Razo [id number] Annette Rowe Notes Date Note Type Note Provider Name [...] therapy for reassessment ? Rey Yung MD [address] [facility] [address], [place], [address], [place] [facility] 10/04/2024 11:50:02 5 text/html Issues: Neck and [...] shoulder left shoulder ordered and obtained at [facility] today were reviewed during the visit. Small [...] aches and pains, the patient can take vaho-ytk-dmuhmgr medication such as Tylenol or anti-inflammatories as needed; risks and benefits of medication discussed. Should call with more persistent pain. We will leave follow up open ended at this point. However should symptoms worsen or fail to improve to the patient's satisfaction, she is encouraged to give the office a call to be seen back for further evaluation and management. Carol Stokes MD [address] [place] [address] [address], [place], [address], [facility] 10/09/2024 16:52:20 5 text/html I am seeing [...] myself in about 4 weeks for MRI review.[employer] speech recognition chief technician x ray software was used to create portions of this document. An attempt at proofreading has been made to minimize errors. Please call for corrections. SOHA GUEVARA PA-C [address], [place], [address], [facility] 12/15/2024 15:10:35 5 text/html I am seeing [...] still continually treated with lumbar injections at [facility]. Examination: The patient is well appearing, alert [...] she is already an established patient at [facility] a referral was sent over to them for evaluation and treatment for cervical injections. She will follow-up in 2 to 3 months with one of my spine colleagues to assess overall effectiveness of the treatment. All other questions asked and answered. Patient expressed understanding and agreement with plan. [employer] speech recognition chief technician x ray software was used to create portions of this document. An attempt at proofreading has been made to minimize errors. Please call for corrections. SOHA GUEVARA PA-C [address] [facility] [address], [place], [address], [facility] 01/23/2025 14:10:13 OBGyn Episode No OBEpisode recorded.
[2025-03-02 17:57] LABS: MANUAL DIFF FLAG NO
[2025-03-02 18:11] LABS: Basophils Percent Auto 0.3 % (0-2); Eosinophils Absolute Auto 0.1 X10*3/uL (0.0-0.4); Eosinophils Percent Auto 1.8 % (0-4); Hematocrit 39.9 % (37.0-47.0); Imm Gran Abs Auto 0.01 X10*3/uL (0.00-0.03); Imm Gran Pct Auto 0.3 % (0.0-0.4); Lymphocytes Absolute Auto 1.4 X10*3/uL (1.2-4.9); Lymphocytes Percent Auto 40.4 % (20-40); Mean Corpuscular HGB Conc 32.6 g/dl (31.0-35.0); Mean Corpuscular Hemoglobin 26.7 pg (27.0-33.0); Mean Corpuscular Volume 82.1 fL (80.0-98.0); Mean Platelet Volume 10.4 fL (9.4-12.3); Monocytes Absolute Auto 0.3 X10*3/uL (0.1-1.2); Monocytes Percent Auto 7.7 % (2-11); Neutrophils Absolute Auto 1.7 x10*3/uL (2.0-8.3); Neutrophils Percent Auto 49.5 % (45-73); Platelet Count 302 X10*3/uL (160-400); Red Blood Count 4.86 X10*6/uL (4.20-5.50); Red Cell Distribution Width 13.4 % (11.0-16.0); White Blood Count 3.4 X10*3/uL (4.8-10.8)
[2025-03-02 18:25] LABS: Alanine Aminotransferase 9 U/L (0-31); Alkaline Phosphatase 106 U/L (39-117); Anion Gap 13 (12-20); Aspartate Amino Transferase 25 U/L (5-31); Bilirubin Total 0.4 mg/dL (0.0-1.0); Blood Urea Nitrogen 7 mg/dL (9-16); C Reactive Protein 1.83 mg/dL (< or = 0.50); Calcium 9.2 mg/dL (8.4-10.2); Carbon Dioxide 23 mmol/L (22-29); Chloride 105 mmol/L (96-108); Estimated Glomerular Filt Rate > 60; Glucose Random 91 mg/dL (60-115); Potassium 3.4 mmol/L (3.3-5.1); Sodium 138 mmol/L (135-145); Total Protein 7.1 g/dL (6.5-8.0)
[2025-03-02 19:06] LABS: Erythrocyte Sedimentation Rate 17 MM/HR (0-20)
[2025-03-02 19:20] LABS: TSH reflex Free T4 1.81 uIU/mL (0.32-4.0)
[2025-03-03 06:54] LABS: Lyme Abs Screen <0.90 index
== END 2025-03-02 13:22 | disposition home or self-care (01) ==
LOC: HO.HKASLDS 13:21
PROVIDERS: Visit Provider Nurse Practitioner Family
DX: R51.9 Headache, unspecified (principal); G50.9 Disorder of trigeminal nerve, unspecified; M32.9 Systemic lupus erythematosus, unspecified
CPT/HCPCS: 36415; 80053; 84443; 85025; 85652; 86140; 86617; 86618

== ENCOUNTER 2025-03-24 13:52 | Outpatient (REF) | payer MEDICARE, MEDICAID, SELFPAY ==
--- NOTE | ~2025-03-24 | MR_ITS ---
EXAMINATION: MR VENOGRAPHY BRAIN WITHOUT AND WITH CONTRAST CLINICAL INFORMATION: Headache, unspecified. COMPARISON: None available. Correlation made with MR brain 02/10/2025. TECHNIQUE: 2-D kavg-mv-umlict imaging and postcontrast imaging of the major cortical and dural venous sinuses was performed. 10 mL IV Gadavist administered. FINDINGS: Normal flow related enhancement within the major cortical and dural venous sinuses. They are patent. No evidence of thrombosis or occlusion. There is a codominant drainage system involving the transverse and sigmoid sinuses. MR/MR venography head wo/w con IMPRESSION: Patent major cortical and dural venous sinuses. Electronically signed by: Reynold Shore MD 03/26/2025 10:13 AM EDT
--- NOTE | ~2025-03-24 | MR_ITS ---
EXAMINATION: MR ANGIOGRAPHY BRAIN WITHOUT CONTRAST CLINICAL INFORMATION: Headache, unspecified COMPARISON: None available. Correlation made with MR brain 02/10/2025. TECHNIQUE: 3-D kwrg-br-ihybxk imaging of the major cervical arterial vasculature was performed. Multiplanar and MIP reformatted images were obtained. FINDINGS: There is normal flow related enhancement in the anterior and posterior circulation. There is no significant stenosis or evidence of flow gap or occlusion. There is no evidence of aneurysm. There is a partial origin of the left DATA SECURITY ANALYST. 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 Right vertebral artery is dominant. The anterior communicating artery is normal. The right posterior communicating artery is diminutive but present. MR/MR angio head wo con IMPRESSION: 1. No evidence of significant stenosis, aneurysm, or occlusion in the intracranial vasculature. 2. Anatomical variants as discussed. Electronically signed by: Reynold Shore MD 03/26/2025 10:07 AM EDT
== END 2025-03-24 13:53 | disposition home or self-care (01) ==
LOC: HO.MRI 13:52
PROVIDERS: PCP Internal Medicine; Visit Provider Nurse Practitioner Family
DX: R51.9 Headache, unspecified (principal); G50.9 Disorder of trigeminal nerve, unspecified
CPT/HCPCS: 70544; 70546; A9585

== ENCOUNTER → 2025-03-24 13:57 | Outpatient (BNV) | payer MEDICARE, MEDICAID, SELFPAY | PROVIDERS: PCP Internal Medicine; Visit Provider Radiology Diagnostic Radiology | DX: R29.818 Other symptoms and signs involving the nervous system (principal) | CPT/HCPCS: 70546 ==

== ENCOUNTER 2025-04-03 10:10 | Outpatient (AMB) | payer MEDICARE, MEDICAID, SELFPAY ==
[2025-04-03 10:16] VITALS: BP 110/84; PULSE 77; O2SAT 98; BMI 34.7
--- NOTE | 2025-04-03 10:16 | MHC.OFFVIS ---
Vital Signs 04/03/25 10:16 Height 4 ft 10 in Weight 166 lb BMI 34.7 BP 110/84 Blood Pressure Location Rt brachial Position Sitting Pulse 77 Pulse Source Pulse Oximeter Pulse Oximetry (%) 98 Oxygen Delivery Method Room Air Intake Visit Reasons: Botox Intake Note: Patient presents for botox injection. pharmacy supplied Color Specialist Required: No Accompanied by: Self / Same As Patient Allergies minocycline Allergy (Unknown, Verified 04/03/25 10:17) Itching sulfamethoxazole (From Bactrim) Allergy (Unknown, Verified 04/03/25 10:17) Itching timolol Allergy (Unknown, Verified 04/03/25 10:17) Itching trimethoprim (From Bactrim) Allergy (Unknown, Verified 04/03/25 10:17) Itching adalimumab (From Humira) Allergy (Verified 04/03/25 10:17) Itching infliximab (From Remicade) Allergy (Verified 04/03/25 10:17) Itching Medication List - Last Reconciled 04/03/25 by Zoya Guajardo MD cyclobenzaprine 5 mg PO BEDTIME fluticasone propionate 50 mcg/actuation intranasal hydroxychloroquine mg PO hydroxyzine HCl 25 mg PO indomethacin 25 mg PO TID 7 days magnesium oxide 400 mg PO BEDTIME 30 days naproxen 500 mg PO olopatadine 0.2% 1 drp ophthalmic (eye) onabotulinumtoxinA (Botox) 200 units IM ONCE 12 weeks ondansetron 4 - 8 mg (1 - 2 x 4 mg) PO Q4H PRN 30 days oxycodone 10 mg PO Q12H PRN riboflavin (vitamin B2) 400 mg PO QAM 30 days sumatriptan succinate 50 - 100 mg orally at onset of headache, may repeat in 2 hrs PRN; max 2 tabs per day or 4 tabs/week (may take with Ibuprofen) 30 days HPI Comments Details: 44y/o female comes for treatment of her cervical dystonia ? Side effects including spread of toxin effect, dysphagia, breathing difficulties , bronchitis etc was discussed in detail and the patient agreed to the procedure.An informed consent was obtained ??? Botulinum toxin type A 200units X 1 -was diluted with 4 cc of normal saline at a concentration of 25 units in 0.5cc saline. Lot number [id number] expiration 06/2027 ??? Muscles injected ??? Eligio Splenius - 50 units each ??? left levator 50 units each Left semispinalis 25 units each left temporalis 25 units ? Total used 200units PFSH Medical History Cataract Glaucoma Anemia Arthritis Fibromyalgia Lupus GERD (gastroesophageal reflux disease) Legally blind Congenital rubella Surgical History History of partial hysterectomy Hx of cholecystectomy History of ankle surgery H/O breast biopsy Hx of shoulder surgery History of surgery History of back surgery Hx of appendectomy Family History Father AIDS Legally blind Family/Other Kidney disease Heart disease Mother Diabetes Hypertension Thyroid disease Family/Other Lupus ADHD Bipolar 1 disorder Depression Anxiety Social History Household Members: Children Household Members Other:: 2 kids Alcohol intake: never Patient Tobacco Use Status: Never used Tobacco Physical Exam Vital Signs: Last Vital Signs Pulse 77 04/03/25 10:16 BP 110/84 04/03/25 10:16 Pulse Ox 98 04/03/25 10:16 Oxygen Delivery Method Room Air 04/03/25 10:16 BMI result Body Mass Index 34.7 Neck Other: dystonia, tightness tenderness in left SCM, splenius, levator, trapezius Mild tenderness in right splenius restricted range of motion Office Procedures Botulinum toxin Injection 53664 - Dystonia Procedure code (CPT) selection complete Office Meds onabotulinumtoxinA 200 unit solution for injection Performing Provider: Zoya Guajardo MD Performing Location: [facility] Administered by: Zoya Guajardo MD on 04/03/25 14:56 Dose Route Admin Location Dispensed Lot Number Expiration Date [facility] Community Engagement Manager 200 unit IM 200 units [id number] [employer]/BOTOX Total Dispensed Waste 200 units 0 % Comments: see hpi Assessment & Plan Assessment & Plan (1) 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
--- OUTSIDE RECORDS SUMMARY | 2025-04-03 11:14 | XMS_ITS | Data Portability ---
Author Organization YESENIA Abdirashid Munroe [facility], [facility] Address [address] [place] [address] Care Team Providers Care Machine Stuffer Name Role Phone WESLEY BANKS Primary Care [...] spine fusion surgery at age 15 at [facility] and has recently seen Dr. Yung for [...] reviewed, updated and is located in the patient s chart. She has fibromyalgia among other medical problems and is seen by an elastic yarn twister in [place]. She is a nonsmoker and is not diabetic. PHYSICAL EXAMINATION: General: 4'10-09/21 , obese, healthy appearing, in no acute [...] Time Details Appointments SPINE RECHECK 2024 01:15P M Justine blair PA-C Not available Not available Not available Lab None recorded. Referral physical therapist referral - Evaluate & Rx Cervical Stabiliza tion Program 2024 025 [email or web address] Not available 12/27/2024 14:04:29 physical therapist referral - DIAGNOSIS : Left shoulder impingeme nt 2x/week x 6 weeks Therapy Start: Evaluate and Treat Goal: - Decrease pain/swel ling - Increase range of motion - Increase strength and/or endurance Recommend ed Modalitie s: - Heat prior to stretchin g - Ice at the end of the session - Additiona l modalitie s prn, but emphasis should be on manual therapy Precautio ns: WBAT, no motion restricti ons Therapeut ic Exercise: - Passive, active-as sist, active range of motion as tolerated , focusing on gradual progressi on over time - Scapula r shrugs/re tractions - should be major focus! - Submaxima l isometric rotator cuff strengthe marissa - Build to theraband and weight resistanc e (max 3lbs) as able Emphasize importanc e of home program, 2x/day 2024 025 [email or web address] Not available 10/18/2024 06:42:48 physical therapist referral - Evaluate & Rx Cervical Stabiliza tion Program 2024 025 [email or web address] Not available 10/04/2024 14:40:03 Procedures None recorded. Surgeries None recorded. Imaging MRI, cervical spine, w/o contrast - mri cervical spine without contrast for cervical radiculop athy 2024 025 [email or web address] [facility] ([facility] [address], [place], [address], 12/27/2024 14:04:29 XR, shoulder, 2 or more view - L shoulder 4 view rm 215 2024 025 [email or web address] [facility], [address], [place], [address], 10/18/2024 06:42:48 XR, cervical spine, 4 or 5 view - 327 4v cspine 2024 025 [email or web address] 8 [facility], [address], [place], [address], 10/04/2024 10:18:25 Medication Orders None recorded. Patient TargetsNo targets recorded. Patient InstructionsNo instructions recorded. Reason for Referral Physical Therapist Referral for Cervical radiculopathy Evaluate & RxCervical Stabilization Program Referring Physician: Rey Yung, Orthopedic Surgery, Encounter Date: 10/04/2024 Physical Therapist Referral for Pain of left shoulder joint DIAGNOSIS: Left shoulder uiemuadbhml7j/week x 6 weeksTherapy Start:Evaluate and TreatGoal: - [...] Abnormal Flag Note LastModifiedBy Organization Detail LastModifiedTime 09/26/1909/25/2024 nerve condu ction study /EMG, lower extre mity (PROC ) No observ ation record ed. [facility] ([facility]) [address], [place], [address], 09/26/2024 16:37:39 10/04/19 25 10/04/2024 XR, cervi anyi spine , 4 or 5 view http:/ [email or web address] ?Encry pted=s hAaTro YD8dLq bEUv6g %2BXZw aYqtaq 0bqfl% 2Fg9IQ a4ajBk vP9nXo QUaueC m3YtLR FvZlgJ JJ8mAn HZtai3 1w4656 AC0Kqb 3mAVae lKiQtr MwF INTERFACE [facility] [address], [place], [address], 10/04/2024 09:59:59 10/04/19 25 10/04/2024 XR, cervi anyi spine , 4 or 5 view http:/ [email or web address] ?Encry pted=s hAaTro YD8dLq bEUv6g %2BXZw aYqtaq 0bqfl% 2Fg9IQ a4ajBk vP9nXo QUaueC m3YtLR FvZlgJ JJ8mAn HZtai3 6x2165 AC0Kqb 3mAVae lKiQtr MwF INTERFACE [facility] [address] [facility] [address], [place], [address], 10/04/2024 10:00:01 10/09/19 25 10/09/2024 XR, shoul harsh, 2 or more view [email or web address]:/ [email or web address] ?Encry pted=s hAaTro YD8dLq bEUv6g %2BXZw aYqtaq 0bqfl% 2Fg9IQ a4ajBk vP9nXo QUaueC m3YtLR FvZlgJ JJ8mAn HZtai3 2c9677 AC0Kqb 3yFUaS mKiQtr MwF INTERFACE [facility] [address], [place], [address], 10/09/2024 15:51:49 10/09/19 25 10/09/2024 XR, kira harsh, 2 or more view http:/ [email or web address] ?Encry pted=s hAaTro YD8dLq bEUv6g %2BXZw aYqtaq 0bqfl% 2Fg9IQ a4ajBk vP9nXo QUaueC m3YtLR FvZlgJ JJ8mAn HZtai3 4r5229 AC0Kqb 3yFUaS mKiQtr MwF INTERFACE [facility] [address], [place], [address], 10/09/2024 15:51:51 12/22/19 25 12/19/2024 MRI, cervi anyi spine , w/o contr ast [facility] Access ion Number : [id number] Patien t Name: Truong in, Yaitza Medica l Record Number : [id number] Date of : 1979 Date of Exam: 2024 Referr ing Physic amberly: Soha [facility] [address] [facility], [place] [address] Exam: MR Cervic al Spine (C-) CPT 88066 Room Descri ption: Davis Siem Espr 1.5 MR Cervic al Spine (C-) CPT 25442 INDICA TION: Radicu lopath y, cervic al [...] l scatte red loss of disc space. FIELD AUTOMOBILE ADJUSTER IOR FOSSA AND CORD: Visual ized speech pathologist assistant ior fossa is normal . The cervic al cord is normal in signal and calibe r. PARASP INAL TISSUE S: Soft tissue s of the neck are unrema rkable . Major cervic al flow voids are presen t. FINDIN GS BY LEVEL: Minima l speech pathologist assistant ior disc bulges are presen t at [...] level. Electr onical ly Signed By: Ene [address] [facility] ([facility]) [address], [place], [address], 12/25/2024 13:06:45 12/22/19 25 12/19/2024 MRI, cervi anyi spine , w/o contr ast No observ ation record ed. [facility] [address], [place], [address], 12/25/2024 13:08:38 Result Notes Documentation Provider Name and Address Organization Details Recorded Time Xr, Cervical Spine, 4 Or 5 View : [email or web address] Encrypted=ymYzFssTC9bIglE Uv6g%1KIBajUalcx7sqzv%2Fg 9VFt5gtGckM7qLhUJrrpVc1Gi AEBvXoqOAR8lUoWSlld02a268 4LZ7Kpv5nZPdskXsFtmNwO Not Available [facility] 10/04/2024 10:00:00 Xr, Cervical Spine, 4 Or 5 View : [email or web address] Encrypted=nlVoGvdYL9aZylT Uv6g%8RKZrhLackz5ahya%2Fg 5MVo1miSatJ2tPaZOmodEh7Hq VXQbJriZYI3qKxXTexo21t442 1VM0Lyn2eMSyimStXboIkK Not Available [facility] 10/04/2024 10:00:03 Xr, Shoulder, 2 Or More View : [email or web address]? Encrypted=yaZiIhzGE5sUtiQ Uv6g%8FSDydRqdzt8kiez%2Fg 7ITd3rpIglO1sRsOElqpGf8Fd JQAmSdaQTO0jToAUmod12d520 1AB8Mzs9fWDsFqRbXtzYmH Not Available [facility] 10/09/2024 15:51:50 Xr, Shoulder, 2 Or More View : [email or web address] Encrypted=jyExOfjLU3sPecS Uv6g%5NSYucCqtzu3iirz%2Fg 3BBr4ggEclU9fKfGTxvwLc7Oe JTAvHdzGAU0pJlBFhzx62d654 2IE3Vhp1jBVrLhGcHjcCxW Not Available [facility] 10/09/2024 15:51:52 Mri, Cervical Spine, W/o Contrast : [facility] Accession Number: [id number] Patient Name: Annette Rowe Date of : 1980 Date of Exam: 12-19-2024 Referring Physician: Soha Guevara [facility] [address] [place], [place] [address] Exam: MR Cervical Spine (C-) CPT 96659 Room Description: [facility] 1.5 MR Cervical Spine (C-) CPT 60316 INDICATION: Radiculopathy, cervical region. TECHNIQUE: Multiplanar, multisequence [...] Electronically Signed By: Rosemary GUEVARA PA-C [address], [place], [address], [facility] 12/25/2024 13:06:45 Problems Name Problem SNOMED Code Status Onset Date Resolution Date Notes Provider Name and Address Organization Details Recorded Time Degenerat ion of lumbar intervert ebral disc 57564857 Active 2023 Rey Yung MD [address], [place], [address] , [facility] 4 09:28:24 Lumbar spondylos is 046158780 Active 2023 LARY wiggins [facility] 4 08:50:11 Adolescen t idiopathi c scoliosis of thoracolu mbar spine 410068633334 109 Active 2023 Rey Yung MD [address], [place], [address] , [facility] 4 09:28:27 Trochante yefri bursitis of left hip 436353225680 103 Active 2023 Elvira Foley PA-C [address], [place], [address] , [facility] 4 13:57:29 Cervical spondylos is 723566334 Active 2024 Rey Yung MD [address], [place], [address] , [facility] 5 11:49:28 Cervical radiculop athy 07050228 Active 2024 SOHA GUEVARA PA-C [address], [place], [address] , [facility] 5 14:09:56 Calcific tendiniti s of left shoulder 530384178297 108 Active 2017 Problem Code: M75.32; Problem Code Type: ICD-10; Status: 'A'; Not Available [facility] 4 11:57:39 Problem Notes None recorded. Procedures Surgical History Date Name Laterality Status Provider Name and Address Organization Details Recorded Time 5 Sports Shoulder completed Carol Stokes MD [address], [place], [address], [facility] 10/09/2024 16:22:34 4 Hip Kenalog 1cc Injection, L/R completed Elvira Foley PA-C [address], [place], [address], [facility] 09/05/2024 13:57:01 8 procedure on shoulder joint completed KEVIN ONEILL [facility] 10/09/2024 15:42:16 Imaging Results None recorded. Procedure Notes None recorded. Medical Equipment None Reported. Allergies Allergen ID Allergen Name Allergen Category Reaction Reaction Severity Criticality Documentation Date Start Date Code Code System Note Provider Name and Address Organization Details Recorded Time 366849 minocycli ne medicatio n Not available Not available Not available 05/15/2024 6980 RxNorm Anammad Rosita wiggins [facility] 4 12:35:32 108105 timolol medicatio n Not available Not available Not available 05/15/2024 33349 RxNorm Jessie wiggins [facility] 4 12:35:52 34540 Bactrim medicatio n tachycard ia Not available Not available 11/22/20232017 24398 9 RxNorm Not Available [facility] 14:47:18 75722 John medicatio n tachycard ia Not available Not available 11/22/20232017 03824 4 RxNorm Not Available [facility] 14:47:18 Medications Name Sig Start Date Stop [...] Updated DateTime 10/03/2024 148.59 cm 33.9 kg/m2 56631.74 g ASPEN Castro [facility] 10/03/2024 13:22:47 Date Recorded Body height Body mass index (BMI) Body weight Provider Name and Address Organization Details Last Updated DateTime 10/04/2024 148.59 cm 33.9 kg/m2 83383.74 g Kavitha mendes [facility] 10/04/2024 09:53:57 Date Recorded Body height Body mass index (BMI) Body weight Provider Name and Address Organization Details Last Updated DateTime 10/09/2024 148.59 cm 33.9 kg/m2 27465.74 g KEVIN ONEILL [facility] 10/09/2024 15:40:14 Date Recorded Body height Body mass index (BMI) Body weight Provider Name and Address Organization Details Last Updated DateTime 12/15/2024 148.59 cm 33.9 kg/m2 57570.74 g Kavitha mendes [facility] 12/15/2024 14:38:12 Date Recorded Body height Body mass index (BMI) Body weight Provider Name and Address Organization Details Last Updated DateTime 01/23/2025 148.59 cm 33.9 kg/m2 14523.74 g KEVIN ONEILL [facility] 01/23/2025 13:39:07 Social History None recorded. Functional Status None recorded. Mental Status None recorded. Family History Nothing Reported. Medical History Condition Response Allergies/Hayfever N Coronary Artery Disease N Breathing or lung disorders N Anxiety/Depression N Emphysema N Nerve Disorders N Thyroid Problems N COPD N Pacemaker N Kidney/Bladder Problems N Anemia N Vascular Disease N Heart Trouble N Heart Attack (NE) N Gastrointestinal Disease N Cholesterol N Diabetes N Autoimmune disease N Inflammatory Joint disease Y Bleeding Disorder N Orthotics N Seizures/Epilepsy N Arthritis N Blood Clot N AIDS/HIV N Congestive Heart Failure (CHF) N Acid Reflux (GERD) N Cancer N Stroke N Asthma N Circulation Problems N Peripheral Vascular Disease N Sleep Apnea N Hepatitis N Heart Disease N Rheumatoid Arthritis N Pulmonary Embolism N Arrhythmia N Headaches Y Fibromyalgia N Hypertension N Osteoporosis N Gynecological HistoryNo gynecological history recorded. Obstetrics History GPAL:G 0 P 0 0 0 0 Past Encounters Encounter ID Performer Location Encounter Start Date Encounter Closed Date Diagnosis/Indication Diagnosis SNOMED-CT Code Diagnosis ICD10 Code Diagnosis Note [id number] Justine Chávez [place] [address] 02/08/2024 08:36:59 03/02/2024 09:48:31 Ankle pain 481345920 M25.579 Sprain of left ankle 201 3974584 2769388 S93.402A [id number] Christian Aguilera MD [facility] [address] [place] [address] [place] [address] 03/02/2024 11:54:24 03/29/2024 13:05:49 Sprain of left ankle 4037578037 4841371 S93.402D Peroneal t endinitis of left lower limb 4584425493 55466 M76.72 [id number] REBECA Braun [address] [place] [address] 04/06/2024 10:01:32 05/10/2024 11:46:59 Sprain of left ankle 3210742442 6702115 S93.402A [id number] REBECA [address] [place] [address] 05/15/2024 12:23:41 06/16/2024 10:21:04 Ankle pain 505877913 M25.076 [id number] [facility] [address] [place] [address] 06/13/2024 08:32:49 07/04/2024 15:16:39 Sprain of left ankle 2221879788 1898436 S93.402D Pain of le ft ankle joint 0165607255 7584369 M25.572 Peroneal t endinitis of left lower limb 7754680917 41777 M76.72 Follow-up orthopedic assessment 686382290 Z47.89 [id number] Rey Yung MD [place] [address] [place] [address] 08/03/2024 08:37:46 08/29/2024 10:43:16 Adolescent idiopathic scoliosis of thoracolumbar spine 1373952420 74418 M41.125 Lumbar spondylosis 10329 0009 M47.816 Degenerati on of lumbar intervertebral disc 32783532 M51.846 [id number] REBECA Santiago [address] [place] [address] 09/05/2024 13:33:10 09/26/2024 13:24:35 Trochanteric bursitis of left hip 0177206076 48580 M70.62 PLAN I reviewed imaging and examinatio [...] questions and concerns were addressed and answered. [id number] MD [facility] [address] [place] [address] 10/09/2024 15:24:34 10/18/2024 06:42:48 Pain of left shoulder joint 2997082010 5674502 M25.066 [id number] Christian Aguilera MD [facility] [address] [place] [address] 10/03/2024 13:17:20 10/13/2024 09:44:58 Follow-up orthopedic assessment 472247704 Z47.89 Peroneal t endinitis of left lower limb 3528573765 34944 M76.72 [id number] Rey Yung MD [facility] [place] [address] [place] [address] 10/04/2024 09:41:55 10/18/2024 09:47:10 Cervical radiculopathy 02840273 M54.12 Chronic pa in of left upper limb 6200671994 1548415 M25.512 G89.29 Cervical spondylosis 387 228595 M47.577 [id number] SOHA GUEVARA PA-C [facility] [address] [place] [address] 12/15/2024 14:33:12 12/27/2024 14:04:29 Cervical radiculopathy 45843639 M54.12 [id number] SOHA GUEVARA PA-C [facility] [address] [place] [address] 01/23/2025 13:32:11 01/29/2025 15:21:38 Cervical radiculopathy 00451003 M54.12 Health Concerns Section Related Observation LastModified by Organization Detai ls LastModified Time None Recorded Concern Status LastModified by Organization Details LastModified Time None Recorded Advance Directives Directive None Recorded Payers Insurance Date Sequence Insurance Name Policy Number Policy Jiménez Covered Member ID Jiménez Member ID Guarantor Name 01/20/2025 1 [place] Annette Topete Esqilin [id number] Yapal Topete Jae 01/23/2025 2 [place] Yaitza E Jae [id number] Yaitza E Jae 01/20/2025 [place] - SPECIALITY CLAIMS ([facility] A) Yaitzangelica Razo [id number] Annette uDlce Jae Notes Date Note Type Note Provider [...] weeks after completing physical therapy for reassessment Rey Yung MD [facility] [address], [place], [address], [place] [facility] 10/04/2024 11:50:02 5 text/html Issues: Neck [...] Diffuse tenderness to palpation. Active forward elevation 160 , passive 170. Mildly positive Neer, mildly positive Moy. Passive external rotation 75 negative ER lag. Internal rotation L2. Mildly positive cross body adduction. 5/5 strength with scaption, IR, ER. Reports pain in all directions. Negative Yergason's. Sensation intact in an axillary distribution. Fires EPL, FPL and intrinsics. Hand is warm and well perfused.Imagin views of the left shoulder left shoulder ordered and obtained at [facility] today were reviewed during the visit. [...] aches and pains, the patient can take vyoo-hvt-vcqqnzn medication such as Tylenol or anti-inflammatories as needed; risks and benefits of medication discussed. Should call with more persistent pain. We will leave follow up open ended at this point. However should symptoms worsen or fail to improve to the patient's satisfaction, she is encouraged to give the office a call to be seen back for further evaluation and management. Carol Stokes MD [address] [place] [address] [address] [facility], [place], [address], [facility] 10/09/2024 16:52:20 5 text/html [...] by me and is located in the patient s chart. Examination: The patient is well appearing, [...] in all upper extremity myotomes 5/5 bilaterally.Sensation intact.Re exes normal 2+, brachial triceps, brachioradialis.Lawton' s sign [...] myself in about 4 weeks for MRI review.[facility] speech recognition machine adjuster leader case trim software was used to create portions of this document. An attempt at proofreading has been made to minimize errors. Please call for corrections. SOHA GUEVARA PA-C [address] [place] [address] [address] [facility], [place], [address], [facility] 12/15/2024 15:10:35 05/06/202 5 text/html I am seeing the patient [...] by me and is located in the patient s chart. Surgical history is significant for previous lumbar spinal fusion she is still continually treated with lumbar injections at [facility]. Examination: The patient is well appearing, alert [...] in all upper extremity myotomes 5/5 bilaterally.Sensation intact.Re exes normal 2+, brachial triceps, brachioradialis.Lawton' s sign [...] she is already an established patient at [facility] a referral was sent over to them for evaluation and treatment for cervical injections. She will follow-up in 2 to 3 months with one of my spine colleagues to assess overall effectiveness of the treatment. All other questions asked and answered. Patient expressed understanding and agreement with plan. [facility] speech recognition machine adjuster leader case trim software was used to create portions of this document. An attempt at proofreading has been made to minimize errors. Please call for corrections. SOHA GUEVARA PA-C [address] [facility] [address], [place], [address], [facility] 01/23/2025 14:10:13 OBGyn Episode No OBEpisode recorded.
--- OUTSIDE RECORDS SUMMARY | 2025-04-03 11:14 | XMS_ITS | Clinical Summary ---
Author Organization [facility] Address [address] [place] [address] Care Team Providers Care Forensic Identification Specialist Name Role Phone Nam Sheriff MD Primary Care Provider [phone] Allergies Active Allergy Reactions Criticality Noted Date [...] 83 09/11/2020 10:50 AM EST Temperature 36.6 C (97.8 F) 09/11/2020 10:50 AM EST Respiratory Rate - - Oxygen Saturation - [...] Screening (Pap Smear) 2002 Influenza Vaccine (#1) 2025 0, 10/13/2018, 08/10/2017, Additional history exists DTap / Tdap / Td (2 - Td or Tdap) 02/05/2027 02/05/2017 Pneumococcal Vaccine Aged Out No long er eligible based on patient's age to complete this topic RSV Ped < 20 months Aged Out No longe r eligible based on patient's age to complete this topic Care Teams Forensic Identification Specialist Relationship Specialty Start Date End Date Nam Sheriff MD PCP - General Internal Medicine 08/29/20
== END 2025-04-03 10:56 | disposition home or self-care (01) ==
LOC: HO.HSMS 10:10
PROVIDERS: PCP Internal Medicine; Visit Provider Psychiatry & Neurology Neurology
DX: G24.3 Spasmodic torticollis (principal)
CPT/HCPCS: 64616

== ENCOUNTER → 2025-04-03 10:10 | Outpatient (BNVA) | payer MEDICARE, MEDICAID, SELFPAY | PROVIDERS: PCP Internal Medicine; Visit Provider Psychiatry & Neurology Neurology | DX: G24.3 Spasmodic torticollis (principal); Z79.899 Other long term (current) drug therapy; Z79.891 Long term (current) use of opiate analgesic | CPT/HCPCS: 64616; 99211; J0585 ==

== ENCOUNTER 2025-07-03 10:23 | Outpatient (AMB) | payer MEDICARE, MEDICAID, SELFPAY ==
[2025-07-03 10:24] VITALS: BP 128/82; PULSE 73; O2SAT 96; BMI 36.4
--- NOTE | 2025-07-03 10:24 | A.OFFVIS_ITS ---
Vital Signs 07/03/25 10:24 Height 4 ft 10 in Weight 174 lb 2 oz BMI 36.4 BP 128/82 Blood Pressure Location Rt brachial Position Sitting Pulse 73 Pulse Source Pulse Oximeter Pulse Oximetry (%) 96 Oxygen Delivery Method Room Air Intake Visit Reasons: Botox Intake Note: Botox Architectural Administrative Assistant Required: No Accompanied by: Spouse Allergies minocycline Allergy (Unknown, Verified 07/03/25 10:24) Itching sulfamethoxazole (From Bactrim) Allergy (Unknown, Verified 07/03/25 10:24) Itching timolol Allergy (Unknown, Verified 07/03/25 10:24) Itching trimethoprim (From Bactrim) Allergy (Unknown, Verified 07/03/25 10:24) Itching adalimumab (From Humira) Allergy (Verified 07/03/25 10:24) Itching infliximab (From Remicade) Allergy (Verified 07/03/25 10:24) Itching Medication List - Last Reconciled 07/03/25 by Zoya Guajardo MD cyclobenzaprine 5 mg PO BEDTIME fluticasone propionate 50 mcg/actuation intranasal hydroxychloroquine mg PO hydroxyzine HCl 25 mg PO indomethacin 25 mg PO TID 7 days magnesium oxide 400 mg PO BEDTIME 30 days naproxen 500 mg PO olopatadine 0.2% 1 drp ophthalmic (eye) onabotulinumtoxinA (Botox) 200 units IM ONCE 12 weeks ondansetron 4 - 8 mg (1 - 2 x 4 mg) PO Q4H PRN 30 days oxycodone 10 mg PO Q12H PRN riboflavin (vitamin B2) 400 mg PO QAM 30 days sertraline 50 mg PO DAILY sertraline 25 mg PO DAILY sumatriptan succinate 50 - 100 mg orally at onset of headache, may repeat in 2 hrs PRN; max 2 tabs per day or 4 tabs/week (may take with Ibuprofen) 30 days triamcinolone acetonide 0.025% appl topical BID HPI Comments Details: 44y/o female comes for treatment of her cervical dystonia ? Side effects including spread of toxin effect, dysphagia, breathing difficulties , bronchitis etc was discussed in detail and the patient agreed to the procedure.An informed consent was obtained ??? Botulinum toxin type A 200units X 1 -was diluted with 4 cc of normal saline at a concentration of 25 units in 0.5cc saline. Lot number [id number] expiration 07/2027 ??? Muscles injected ??? Eligio Splenius - 50 units each ??? left levator 50 units each Left semispinalis 25 units each left temporalis 25 units ? Total used 200units [facility] Medical History Cataract Glaucoma Anemia Arthritis Fibromyalgia Lupus GERD (gastroesophageal reflux disease) Legally blind Congenital rubella Surgical History History of partial hysterectomy Hx of cholecystectomy History of ankle surgery H/O breast biopsy Hx of shoulder surgery History of surgery History of back surgery Hx of appendectomy Family History Father AIDS Legally blind Family/Other Kidney disease Heart disease Mother Diabetes Hypertension Thyroid disease Family/Other Lupus ADHD Bipolar 1 disorder Depression Anxiety Social History Household Members: Children Household Members Other:: 2 kids Alcohol intake: never Patient Tobacco Use Status: Never used Tobacco Physical Exam Vital Signs: Last Vital Signs Pulse 73 07/03/25 10:24 BP 128/82 07/03/25 10:24 Pulse Ox 96 07/03/25 10:24 Oxygen Delivery Method Room Air 07/03/25 10:24 BMI result Body Mass Index 36.4 Neck Other: dystonia, tightness tenderness in left SCM, splenius, levator, trapezius Mild tenderness in right splenius restricted range of motion Office Procedures Botulinum toxin Injection 55922 - Dystonia Procedure code (CPT) selection complete Office Meds onabotulinumtoxinA 200 unit solution for injection Performing Provider: Zoya Guajardo MD Performing Location: [facility] Administered by: Zoya Guajardo MD on 07/03/25 10:53 Dose Route Admin Location Dispensed Lot Number Expiration Date [facility] Prop Worker 200 unit IM 200 units [id number] ALLERGAN /BOTOX Total Dispensed Waste 200 units 0 % Assessment & Plan Assessment & Plan (1) Spasmodic torticollis: Code(s): G24.3 - Spasmodic torticollis Category: Medical Plan Patient tolerated the procedure well She will call with any side effects .MRA and MRV results were discussed Orders: Orders AMB Botulinum toxin Injection Today G24.3 - Spasmodic torticollis Coding Level of Care Code Est Pt Level 1 (54330) Diagnoses Spasmodic torticollis G24.3 CPT Codes Botox Injection - Botox 4: 60683 - Dystonia ([id number])
--- OUTSIDE RECORDS SUMMARY | 2025-07-03 12:14 | XMS_ITS | Clinical Summary ---
Author Organization [facility] Address [facility] [place] [phone] Phone Care Team Providers Care Emergency Room Orderly Name Role Phone Unknown, Unknown Primary Care Provider Isaiah elise Allergies Active Allergy Reactions Criticality Noted Date Comments Infliximab Hives 02/27/2013 Active Problems Problem Noted Date Diagnosed Date Systemic lupus erythematosus 03/27/2015 Overview (08/27/2015): Systemic lupus erythematosus Uveitis 03/27/2015 Overview (08/27/2015): Uveitis Leukopenia 03/27/2015 Overview (08/27/2015): Leukopenia Social History Tobacco Use Types Packs/Day Years Used Date Smoking Tobacco: Never Assessed Comments Unknown Sex and Gender Information Value Date Recorded Sex Assigned at Not on file Legal Sex Female 6:48 PM EST Gender Identity Not on file Sexual Orientation Not on file Last Filed Vital Signs Vital Sign Reading Time Taken Comments Blood Pressure 124/83 03/21/2015 9:38 AM EDT Pulse 81 03/21/2015 9:38 AM EDT Temperature 36.8 C (98.3 F) 03/21/2015 9:38 AM EDT Respiratory Rate 16 03/21/2015 9:38 AM EDT Oxygen Saturation - - Inhaled Oxygen Concentration - - Weight 74.8 kg (165 lb) 03/21/2015 9:38 AM EDT Height 147.3 cm (4' 10 ) 03/21/2015 9:38 AM EDT Body Mass Index 34.49 03/21/2015 9:38 AM EDT Plan of Treatment Not on file Medical Devices Not on file Insurance MEDICARE PART A & B [facility] MEDICARE PART A & B [facility] PART A & B [facility] MEDICARE PART A & B [facility] MEDIC[facility] PART A & B [facility] MEDICARE PART A & B [place] [facility]ICARE PART A & B [facility] MEDICARE PART A & B [place] MED[place] PART A & B [facility] Care Teams Emergency Room Orderly Relationship Specialty Start Date End Date Unknown, Unknown, PCP - General 03/21/15 Additional Source Comments The information contained in this document represents components of the legal health record. It is not the complete legal health record.[facility]
--- OUTSIDE RECORDS SUMMARY | 2025-07-03 12:14 | XMS_ITS | Clinical Summary ---
Author Organization [facility] Address [address] [place] [address] Care Team Providers Care Real Time Operator Name Role Phone Nam Sheriff MD Primary Care Provider [phone] Allergies Active Allergy Reactions Criticality Noted Date [...] age to complete this topic Care Teams Real Time Operator Relationship Specialty Start Date End Date Nam Sheriff MD PCP - General Internal Medicine 08/29/20
--- OUTSIDE RECORDS SUMMARY | 2025-07-03 12:14 | XMS_ITS | Clinical Summary ---
Author Organization [facility] Address [address] [place] [address] Phone Care Team Providers Care Kennel Supervisor Name Role Phone Nam Sheriff MD Primary Care Provider [phone] Allergies Active Allergy Reactions Criticality Noted Date [...] Tablet by mouth daily for 360 days. 02/18/20 24 Active cyclobenzaprin e (FLEXERIL) 10 mg tablet Take 1 Tab by mouth at bedtime. 08/06/20 20 Active docusate sodium (COLACE) 100 mg capsule Take 1 Capsule by mouth 2 times daily. Active famotidine (PEPCID) 20 mg tablet Take 1 Tablet by mouth 2 times daily as needed for Heartburn. 03/14/20 24 Active fluticasone propionate (FLONASE) 50 mcg/actuation nasal spray SPRAY TWICE INTO EACH NOSTRIL ONCE DAILY 01/31/20 24 Active hydroxychloroq uine (PLAQUENIL) 200 mg tablet Take 200 mg by mouth 2 times daily. Active loperamide (IMODIUM) 2 mg capsule Take 1 Capsule by mouth 4 times daily as needed for Diarrhea. 03/14/20 24 Active naproxen (NAPROSYN) 500 mg tablet Take 500 mg by mouth 2 (two) times a day with meals. Active olopatadine (PATADAY) 0.2 % ophthalmic solution apply 1 Drop to the eye daily. Both eyes Active pantoprazole (PROTONIX) 40 mg EC tablet Take 1 Tablet by mouth daily. Take in am on empty stomach, wait 30 mins and then eat to activate the medication 03/14/20 24 Active tafluprost, PF, 0.0015 % dropperette apply 1 Drop to the eye at bedtime. Left eye Active Vitamin D3 50 mcg (2,000 unit) tablet TAKE 1 TABLET BY MOUTH ONCE DAILY 90 tablet 1 08/11/20 24 Active tirzepatide, weight loss, (Zepbound) 2.5 mg/0.5 mL injection Inject 0.5 mL (2.5 mg total) under the skin every 7 (seven) days. 2 mL 11/14/19 25 Active hydrOXYzine HCL (ATARAX) 25 mg tablet TAKE 1 TABLET BY MOUTH 3 (THREE) TIMES A DAY NEEDED FOR ANXIETY 90 tablet 1 01/16/20 25 Active cetirizine (ZyrTEC) 10 mg tablet Take 1 tablet (10 mg total) by mouth 1 (one) time each day. 30 each 2 02/23/20 25 Active sertraline (ZOLOFT) 50 mg tablet TAKE 1 TABLET BY MOUTH ONCE DAILY 30 tablet 5 02/27/20 25 Active triamcinolone (KENALOG) 0.025 % cream Apply to affected areas twice daily 15 g 5 04/17/20 25 Active oxyCODONE (ROXICODONE) 10 mg immediate release tabletIndicati ons:Chronic midline low back pain with bilateral sciatica Take 1 tablet (10 mg total) by mouth 3 (three) times a day if needed for severe pain for up to 28 days. Max Daily Amount: 30 mg 84 tablet 06/05/20 25 025 Active sertraline (ZOLOFT) 25 mg tablet TAKE 1 TABLET BY MOUTH EVERY NIGHT AT BEDTIME IN addition TO 50MG TABLET EVERY MORNING 30 tablet 1 06/15/20 25 Active sertraline (ZOLOFT) 25 mg tablet Take 1 tablet nightly In addition to 50mg tablet every AM. 30 tablet 3 01/16/20 25 025 Discontinued oxyCODONE (ROXICODONE) 10 mg immediate release tabletIndicati ons:Chronic midline low back pain with bilateral sciatica Take 1 tablet (10 mg total) by mouth 3 (three) times a day if needed for severe pain for up to 28 days. 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 ([facility] V24) 02/29/2020 Iron deficiency 02/09/2019 GERD (gastroesophageal reflux disease) 8 IBS (irritable bowel syndrome) 11/25/2017 Chronic left shoulder pain 11/11/2016 Uveitis 03/27/2015 Overview (07/05/2024): Uveitis Glaucoma 03/06/2015 Insomnia 03/06/2015 Legally blind 03/06/2015 Leukopenia 03/06/2015 Overview (07/05/2024): Leukopenia Polyarthralgia 03/06/2015 Systemic lupus erythematosus (CMS/HCC V24, CMS/H CC V28) 03/06/2015 Overview (07/05/2024): Systemic lupus erythematosus Visual impairment in both eyes 03/06/2015 Resolved Problems Problem Noted Date Diagnosed Date Resolved Date History of laparoscopic cholecystectomy 09/04/2022 07/05/2024 Encounters Date Type Department Care Team Description 05/30/2025 11:00 AM EDT Office Visit Bariatric Surgery - [address] [place] [address] Ainsley Andrade PA Class 2 severe obesity due to excess calories with serious comorbidity and body mass index (BMI) of 35.0 to 35.9 in adult ([facility] V24, [facility] V28) (Primary Dx) 04/13/2025 Telephone Gastroenterology - [place] [address] [place] [address] Harvey Phan MD from Last 3 Months Immunizations Immunization Administration Dates Next Due Influenza Quadravalent, MDCK [...] (FluMist) 2yo to less than 50yo 09/18/2022 [employer] SARS-CoV-2 COVID-19, mRNA, LNP-S, preservative free 09/06/2021,01/10/2021,12/19/2020 Pneumococcal polysaccharide 23 valent (Pneumovax 23) 2yo and older 10/17/2014 Tdap Tetanus diptheria acell ular pertussis (Boostrix; Adacel) 7yo and older 10/20/2022,02/05/2017 Surgical History Surgery Date Site/Laterality Comments OTHER SURGICAL HISTORY PROCEDURE: HISTORICAL GLAUCOMA OTHER SURGICAL HISTORY PROCEDURE: REPAIR DETACHED RETINA OTHER SURGICAL HISTORY PROCEDURE: MD ARTHRD ANT INTERBODY MIN DSC LUMBAR TUBAL LIGATION PROCEDURE: HISTORICAL TUBAL LIGATION APPENDECTOMY PROCEDURE: MD APPENDEC INDICATED PURPOSE OTH MAJOR PX NOT SPX COLONOSCOPY 06/17/2017 PROCEDURE: HISTORICAL COLONOSCOPY; COMMENT: Visually normal colon and terminal ileum; random colonic biopsies obtained: normal. 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 Blindness Lupus (systemic lupus erythe matosus) ([facility] V24, [facility] V28) Arthritis Fibromyalgia Family History Relation Name Status Comments Brother 1 Brother 2 Alive Father Mother Alive Social History Tobacco Use Types Packs/Day Years Used Date Smoking Tobacco: Never Smokeless Tobacco: Never Tobacco Cessation:Counseling Given: Not Answered Alcohol Use Standard Drinks/Week Comments Yes 0 (1 standard drink = 0.6 oz pur e alcohol) Comments No Sex and Gender Information Value Date Recorded Sex Assigned at Female 04/16/2025 10:27 AM EDT Legal Sex Female 4:32 PM EST Gender Identity Female 04/16/2025 10:27 AM EDT Sexual Orientation Straight 04/16/2025 10 :27 AM EDT Obstetrics History Last Filed Vital Signs Vital Sign Reading Time Taken Comments Blood Pressure 116/74 05/30/2025 10:27 AM EDT Pulse 75 05/30/2025 10:27 AM EDT Temperature 36.6 C (97.8 F) 05/30/2025 10:27 AM EDT Respiratory Rate 16 02/04/2025 8:02 PM EDT Oxygen Saturation 100% 02/04/2025 8:02 PM EDT Inhaled Oxygen Concentration - - Weight 76.7 kg (169 lb) 05/30/2025 10:27 AM EDT Height 147.3 cm (4' 10 ) 05/30/2025 10:27 AM EDT Body Mass Index 35.32 05/30/2025 10:27 AM EDT Plan of Treatment Upcoming Encounters Date Type Department Care Team (Late st Contact Info) Description 07/11/2025 9:45 AM EDT Office Visit Internal Medicine - [facility] [address] [place], [place] [phone] Nam Sheriff MD [address] [place] [address] 10/23/2025 4:00 PM EST Office Visit Bariatric Surgery - [place] [address] [place] [address] Ainsley Andrade PA [address] [place] [address] Health Maintenance Due Date Last Done Comments Breast Cancer Screening 1981 Hepatitis B Vaccines (1 of 3 - 19+ 3-dose series) 2000 HPV Vaccines (1 - 3-dose SCDM series) 2008 Cervical Cancer Screening: Pap Smear 09/20/2020 09/20/2017 HIV Screening 08/19/2022 Hepatitis C Screening 08/19/2022 Medicare Annual Wellness Visit 08/19/2022 Social Influencers of Health Screening 08/19/2022 Depression Screening 09/20/2024 COVID-19 Vaccine ( season) 2025 09/06/2021, 01/10/2021, 12/19/2020 Influenza Vaccine (#1) 2025 , 09/18/2022, 09/06/2021, Additional history exists Cholesterol Screening (Lipid Panel) 11/21/2029 11/21/2024, 05/05/2023 DTaP,Tdap,and Td Vaccines (3 - Td or Tdap) 10/20/2032 10/20/2022, 02/05/2017 RSV Immunization Adult Patients (1 - 1-dose 75+ series) 2056 Pneumococcal Vaccine: Pediatrics (0 to 5 Years) and At-Risk Patients (6 to 49 Years) Aged Out 10/17/2014 No longer eligible [...] Procedure Name Priority Date/Time Associated Diagnosis Comments LIPID PANEL WITH REFLEX TO DIRECT LDL Routine 11/21/2024 3:03 PM EST Screening for hyperlipidemia [facility] PAP SMEAR Routine 09/20/2017 from Last 3 Months or Most Recently Relevant to Health Maintenance Results * (ABNORMAL) Lipid panel with reflex to direct LDL (11/21/2024 3:03 PM EST) Cholesterol 178 0 - 200 mg/dL LAB CHEMISTRY METHOD 11/21/2024 7:[address] [facility] Triglycerides 98 0 - 150 mg/dL LAB CHEMISTRY METHOD 11/21/2024 7:[address] [facility] HDL 51 >=40 mg/dL LAB CHEMISTRY METHOD 11/21/2024 7:[address] [facility] LDL Calculated 107(H) 0 - 100 mg/dL LAB CHEMISTRY METHOD 11/21/2024 7:[address] [facility] VLDL Cholesterol Calvin 19.6 mg/dL LAB CHEMISTRY METHOD 11/21/2024 7:[address] [facility] Non HDL Chol. (LDL+VLDL) 127 <145 mg/dL LAB CHEMISTRY METHOD 11/21/2024 7:[address] [facility] Chol/HDL Ratio 3.5 0.0 - 4.4 LAB CHEMISTRY METHOD 11/21/2024 7:[address] [facility] Blood Venous blood specimen / Unknown Venipuncture / Unknown 11/21/2024 3:03 PM EST 11/21/2024 3:03 PM EST Nam Sheriff MD LAB BLOOD ORDERABLES Final Res ult [facility] [address] [place] [address], [place] [phone] * Pap Smear (09/20/2017) HM Pap smear No interpretation with ,abstracted Historical Provider HEALTH MAINTENANCE Final Result from Last 3 Months or Most Recently Relevant to Health Maintenance [place] [id number] Care Teams Kennel Supervisor Relationship Specialty Start Date End Date Nam Sheriff MD [address] [place] [id number] PCP - General Internal Medicine 08/07/24
--- OUTSIDE RECORDS SUMMARY | 2025-07-03 12:15 | XMS_ITS ---
Author Name [facility] Organization Unknown Care Team Organization Name Specialty Phone Email Start Date End [facility] 05/09/2025
== END 2025-07-03 10:51 | disposition home or self-care (01) ==
LOC: HO.HSMS 10:23
PROVIDERS: PCP Internal Medicine; Visit Provider Psychiatry & Neurology Neurology
DX: G24.3 Spasmodic torticollis (principal)
CPT/HCPCS: 64616

== ENCOUNTER → 2025-07-03 10:23 | Outpatient (BNVA) | payer MEDICARE, MEDICAID, SELFPAY | PROVIDERS: PCP Internal Medicine; Visit Provider Psychiatry & Neurology Neurology | DX: G24.3 Spasmodic torticollis (principal) | CPT/HCPCS: 64616; 99211; J0585 ==